=== PATIENT | female | born 1995 | race Hispanic/Latino ===

== ENCOUNTER 2020-02-02 06:36 | Emergency (ER) | payer SELFPAY ==
--- NOTE | ~2020-02-02 | XR_ITS ---
EXAMINATION: XR chest 2V DATE: 02/02/2020 07:34 INDICATION: Chest pain TECHNIQUE: Frontal and lateral views of the chest are obtained COMPARISON: None available FINDINGS: The lungs are free of acute opacities. There is no pleural effusion or pneumothorax. The ca rdiomediastinal silhouette is normal. The visualized bones and soft tissues are unremarkable. IMPRESSION: 1. No acute cardiopulmonary abnormality. Reviewed, dictated and finalized at location A.
[2020-02-02 06:42] VITALS: BP 116/70; PULSE 56; RESP 19; TEMP 36.8; O2SAT 100
[2020-02-02 06:51] VITALS: PULSE 56; O2SAT 100
--- NOTE | 2020-02-02 06:56 | ECG_ITS ---
Measurements Intervals [place] Rate: 58 P: 39 AK: 156 QRS: 61 QRSD: 86 T: 14 QT: 404 QTc: 399 Interpretive Statements SINUS BRADYCARDIA WITH MARKED SINUS ARRHYTHMIA INFERIOR INFARCT, AGE INDETERMINATE BORDERLINE T WAVE ABNORMALITY- ANTERIOR LEADS BASELINE WANDER- I, II ABNORMAL ECG Electronically Signed On 02-02-2020 9:14:17 CDT by Mono Freitas D.O.
--- NOTE | 2020-02-02 06:57 | ED.CHESTPAIN ---
HPI - Chest Pain General Chief Complaint: Chest Pain Stated Complaint: pressure on my heart Time Seen by Provider: 02/02/20 06:47 Source: patient Mode of arrival: ambulatory Limitations: no limitations History of Present Illness HPI narrative: Patient is a 24-year-old female who presents to the emergency department with complaint of chest pain. Patient reports onset of symptoms 4 days ago. Patient states pain has been brief and intermittent lasting a few seconds at a time occurring several times a day for the past 4 days. Patient denies any other associated symptoms or any recent illness. Patient has no cardiac risk factors. complaint: chest pain Onset (ago): day(s) (4) Timing of current episode: daily Pain location: left chest Quality: other (presure) Relieving factors: nothing Exacerbating factors: nothing Treatment prior to arrival: none Risk Factors Coronary artery disease risk factors: none Related Data Home Medications Medication Instructions Recorded Confirmed No Home Medications 02/02/20 Allergies Allergy/AdvReac Type Severity Reaction Status Date / Time No Known Allergies Allergy Verified 02/02/20 06:53 Review of Systems Review of Systems: All systems reviewed & are unremarkable except as noted in HPI and below Constitutional: Constitutional: Denies fever(s) Cardiovascular: Cardiovascular: Reports chest pain Respiratory: Respiratory: Denies cough and Denies dyspnea Gastrointestinal: Gastrointestinal: Denies abdominal pain, Denies nausea and Denies vomiting PMFSH Past Medical History Medical History (Updated 02/02/20 @ 08:51 by Carley Silva MD) No significant past medical history Surgical History Surgical History (Updated 02/02/20 @ 06:59 by Carley Silva MD) History of section Social History Social History (Updated 02/02/20 @ 06:59 by Carley Silva MD) Smoking status: Never smoker Exam Const: General: cooperative, no acute distress and alert Nutritional Appearance: overweight Orientation/consciousness: patient oriented x3 Limitations: no limitations HENMT: Mouth: Yes lip normal and Yes moist mucous membranes Resp: Effort & Inspection: normal respiratory effort Auscultation: clear to auscultation bilaterally Cardio: Rate: regular rate Rhythm: regular rhythm GI: GI Palp: Yes Soft to palpation and No Tenderness to palpation present (GI) Auscultation: normal bowel sounds Skin: General skin exam: normal color Neuro: General: patient oriented x3 Cognition (Neuro): normal cognition Speech: normal speech Extrem: General: normal to inspection, full ROM and no clubbing, cyanosis or edema Psych: Mental Status: mental status grossly normal Affect: normal affect Attitude: cooperative Course Course Emergency Course: Testing in the emergency department unremarkable. Patient with no risk for cardiac disease and normal test. Patient advised to follow-up with primary care for further evaluation if needed. Vital Signs Vital signs: Vital Signs Temperature 98.2 F 02/02/20 06:42 Pulse Rate 56 L 02/02/20 06:42 Respiratory Rate 19 02/02/20 06:42 Blood Pressure 116/70 02/02/20 06:42 Pulse Oximetry 100 02/02/20 06:42 Temperature 98.2 F 02/02/20 06:42 Pulse Rate 56 L 02/02/20 08:16 Respiratory Rate 16 02/02/20 08:16 Blood Pressure 104/63 02/02/20 08:16 Pulse Oximetry 98 02/02/20 08:16 MDM - Chest Pain Lab Data Attestation: I reviewed the patient's lab results. Result diagrams: 02/02/20 06:58 02/02/20 06:58 Labs: Lab Results 02/02/20 02/02/20 Range/Units 06:58 06:58 WBC 6.1 (4.5-10.0) K/mm3 RBC 4.78 (4.2-5.4) M/mm3 Hgb 13.2 (12.0-15.0) g/dL Hct 41.2 (37.0-47.0) % MCV 86.2 (80-100) fl MCH 27.6 (26-34) pg MCHC 32.0 (32-36) g/dl RDW 13.4 (11.5-14.5) % Plt Count 185 (150-375) k/mm3 MPV 13.1 H (7.4-10.4) fl Immature Gran % (
[2020-02-02 07:22] LABS: Basophils Percent Auto 0.2 % (0.2-1.2); Eosinophils Absolute Auto 0.2 K/mm3 (0-0.3); Hematocrit 41.2 % (37.0-47.0); Hemoglobin 13.2 g/dL (12.0-15.0); Immature Granulocyte Absolute 0.01 K/mm3 (0.00-0.031); Immature Granulocyte Percent A 0.2 % (0-0.5); Immature Platelet Fraction Pct 15.3 % (0.9-11.2); Lymphocytes Absolute Auto 2.33 K/mm3 (0.9-3.2); Lymphocytes Percent Auto 38.4 % (18.3-44.2); Mean Corpuscular Hemoglobin 27.6 pg (26-34); Mean Corpuscular Volume 86.2 fl (80-100); Mean Platelet Volume 13.1 fl (7.4-10.4); Monocytes Absolute Auto 0.3 K/mm3 (0.1-0.6); Monocytes Percent Auto 5.1 % (2.6-8.5); Neutrophils Absolute Auto 3.2 K/mm3 (1.3-6.7); Neutrophils Percent Auto 52.1 % (45.5-73.1); Platelet Count Result 185 k/mm3 (150-375); Red Blood Count 4.78 M/mm3 (4.2-5.4); Red Cell Distribution Width 13.4 % (11.5-14.5); White Blood Count 6.1 K/mm3 (4.5-10.0)
[2020-02-02 07:32] LABS: Alanine Aminotransferase 15 U/L (4-35); Albumin Level 4.7 g/dL (3.5-5.1); Alkaline Phosphatase 59 U/L (38-126); Aspartate Amino Transferase 26 U/L (14-36); Bilirubin,Total 0.5 mg/dL (0.2-1.3); Blood Urea Nitrogen 11 mg/dL (7-17); Calcium 9.3 mg/dL (8.4-10.2); Carbon Dioxide 27 mmol/L (22-30); Chloride 104 mmol/L (98-107); Estimated CRCL calculation 116 ml/min; Estimated Glomerular Filt Rate > 60; Glucose 92 mg/dL (65-105); Potassium 3.6 mmol/L (3.4-5.0); Sodium 137 mmol/L (137-145)
[2020-02-02 07:43] LABS: Troponin I < 0.012 ng/mL (0.000-0.034)
[2020-02-02 08:16] VITALS: BP 104/63; PULSE 56; RESP 16; O2SAT 98
[2020-02-02 08:58] VITALS: BP 101/65; PULSE 61; RESP 18; O2SAT 98
== END 2020-02-02 09:00 | disposition home or self-care (01) ==
PROVIDERS: Emergency Provider Emergency Medicine
DX: R07.89 Other chest pain (principal); R00.1 Bradycardia, unspecified; R94.31 Abnormal electrocardiogram [ECG] [EKG]
CPT/HCPCS: 36415; 71046; 80053; 84484; 85025; 85055; 93005; 99284

== ENCOUNTER 2021-01-01 08:43 | Emergency (ER) | payer SELFPAY ==
[2021-01-01 08:53] VITALS: BP 119/61; PULSE 50; RESP 16; TEMP 36.2; O2SAT 100
--- NOTE | 2021-01-01 09:52 | ED.SKABFB ---
HPI - Skin/Abscess/Foreign Bdy General Chief complaint: Skin/Abscess/Foreign Body <Inocencia Younger PA-C - Last Filed: 01/01/21 10:00> Stated complaint: lump on arm and neck <Inocencia Younger PA-C - Last Filed: 01/01/21 10:00> Time Seen by Provider: 01/01/21 09:06 <Inocencia Younger PA-C - Last Filed: 01/01/21 10:00> Source: patient <Inocencia Younger PA-C - Last Filed: 01/01/21 10:00> Mode of arrival: ambulatory <Inocencia Younger PA-C - Last Filed: 01/01/21 10:00> Limitations: no limitations <Inocencia Younger PA-C - Last Filed: 01/01/21 10:00> History of Present Illness HPI narrative: This is a 25 year old female that presents to the ER for cysts noted on her arm and neck. Reports she first noted the one on her left upper arm about a year ago. Reports she noted one on her neck about a month ago. Reports they are now becoming tender with palpation to the areas. Denies fever, or erythema. <Inocencia Younger PA-C - Last Filed: 01/01/21 10:00> Related Data Allergies/Adverse reactions: Allergies Allergy/AdvReac Type Severity Reaction Status Date / Time No Known Allergies Allergy Verified 01/01/21 08:56 <Inocencia Younger PA-C - Last Filed: 01/01/21 10:00> Review of Systems Review of Systems: Narrative: CONSTITUTIONAL: Denies fever SKIN: Denies rash <Inocencia Younger PA-C - Last Filed: 01/01/21 10:00> All systems reviewed & are unremarkable except as noted in HPI and below <Inocencia Younger PA-C - Last Filed: 01/01/21 10:00> PMFSH Past Medical History Medical History: Medical History (Updated 01/01/21 @ 09:57 by Inocencia Younger PA-C) No significant past medical history <Inocencia Younger PA-C - Last Filed: 01/01/21 10:00> Surgical History Surgical History: Surgical History (Updated 02/02/20 @ 06:59 by Carley Silva MD) History of section <Inocencia Younger PA-C - Last Filed: 01/01/21 10:00> Social History Social History: Social History (Updated 02/02/20 @ 06:59 by Carley Silva MD) Smoking status: Never smoker <Inocencia Younger PA-C - Last Filed: 01/01/21 10:00> Exam Narrative: Exam Narrative: GENERAL: Well-appearing, obese, and in no acute distress. HEAD: Normocephalic, atraumatic. EYES: EOMI. ENT: Nares clear, no rhinorrhea or epistaxis. Mucous membranes moist. Oropharynx without tonsillar hypertrophy exudate or other lesions. Bilateral TMs pearly nance non-bulging NECK: Supple. Small (1.5cm), mobile cyst versus lymph node in the right posterior cervical region. No erythema or warmth CHEST: Clear to auscultation. No respiratory distress. No wheezes rales or rhonchi HEART: Regular rate and rhythm. No murmur heard. Normal peripheral pulses. EXTREMITIES: Normal range of motion. No edema. Small (1.5cm), nonmobile subcutaneous cyst of the left upper arm, no surrounding erythema or warmth SKIN: Warm, dry, no rash. NEURO: No focal deficits. Alert and oriented x3. PSYCH: Normal mood and affect <SHAD Flores Last Filed: 01/01/21 10:00> Course Vital Signs Vital signs: Vital Signs Temperature 97.1 F L 01/01/21 08:53 Pulse Rate 50 L 01/01/21 08:53 Respiratory Rate 16 01/01/21 08:53 Blood Pressure 119/61 01/01/21 08:53 Pulse Oximetry 100 01/01/21 08:53 Temperature 97.1 F L 01/01/21 08:53 Pulse Rate 50 L 01/01/21 08:53 Respiratory Rate 16 01/01/21 08:53 Blood Pressure 119/61 01/01/21 08:53 Pulse Oximetry 100 01/01/21 08:53 <Inocencia Younger PA-C - Last Filed: 01/01/21 10:00> Vital Signs Temperature 97.1 F L 01/01/21 08:53 Pulse Rate 50 L 01/01/21 08:53 Respiratory Rate 16 01/01/21 08:53 Blood Pressure 119/61 01/01/21 08:53 Pulse Oximetry 100 01/01/21 08:53 Temperature 97.1 F L 01/01/21 08:53 Pulse Rate 50 L 01/01/21 08:53 Respiratory Rate 16 01/01/21 08:53 Blood Pressure 119/61 01/01/21 08:53 Pulse Oximetry 100 01/01/21 08:53
== END 2021-01-01 11:10 | disposition home or self-care (01) ==
PROVIDERS: Emergency Provider General Practice
DX: L72.3 Sebaceous cyst (principal)
CPT/HCPCS: 99283

== ENCOUNTER 2021-08-31 07:59 | Emergency (ER) | payer SELFPAY ==
[2021-08-31 08:16] VITALS: BP 120/55; PULSE 58; RESP 20; TEMP 36.6; O2SAT 100
[2021-08-31 09:30] VITALS: BP 121/60; PULSE 59; RESP 19; O2SAT 100
[2021-08-31 09:33] LABS: Basophils Percent Auto 0.2 % (0.2-1.2); Eosinophils Absolute Auto 0.1 K/mm3 (0-0.3); Eosinophils Percent Auto 2.2 % (0-4.4); Hematocrit 33.2 % (37.0-47.0); Hemoglobin 10.9 g/dL (12.0-15.0); Immature Granulocyte Absolute 0.01 K/mm3 (0.00-0.031); Immature Granulocyte Percent A 0.2 % (0-0.5); Lymphocytes Absolute Auto 1.76 K/mm3 (0.9-3.2); Lymphocytes Percent Auto 29.7 % (18.3-44.2); Mean Corpuscular HGB Conc 32.8 g/dl (32-36); Mean Corpuscular Volume 85.3 fl (80-100); Mean Platelet Volume 12.7 fl (7.4-10.4); Monocytes Absolute Auto 0.4 K/mm3 (0.1-0.6); Monocytes Percent Auto 7.4 % (2.6-8.5); Neutrophils Absolute Auto 3.6 K/mm3 (1.3-6.7); Neutrophils Percent Auto 60.3 % (45.5-73.1); Platelet Count Result 158 k/mm3 (150-375); Red Blood Count 3.89 M/mm3 (4.2-5.4); Red Cell Distribution Width 13.2 % (11.5-14.5); White Blood Count 5.9 K/mm3 (4.5-10.0)
[2021-08-31 10:10] LABS: Anion Gap 7 mmol/L (8-16); Blood Urea Nitrogen 9 mg/dL (7-17); Carbon Dioxide 24 mmol/L (22-30); Chloride 106 mmol/L (98-107); Estimated CRCL calculation 116 ml/min; Estimated Glomerular Filt Rate > 60; Glucose 86 mg/dL (65-110); Potassium 4.2 mmol/L (3.4-5.0); Sodium 137 mmol/L (137-145)
--- NOTE | 2021-08-31 10:33 | ED.SKABFB ---
HPI - Skin/Abscess/Foreign Bdy General Chief complaint: Skin/Abscess/Foreign Body Stated complaint: neck pain, headache, skin abcess Time Seen by Provider: 08/31/21 08:50 Source: patient History of Present Illness HPI narrative: Patient presents with swelling on the right neck. Reports symptoms been there for approximately 1 month and she is having increasing pain. Reports never been evaluated for it before but wanted to come to the ER given worsening symptoms. She denies any fevers, cough, congestion. She denies any dental pain pain with swallowing changes in hearing or earaches. Denies any nausea or vomiting. She denies any major changes in weight. Related Data Allergies Allergy/AdvReac Type Severity Reaction Status Date / Time No Known Allergies Allergy Verified 08/31/21 08:22 Review of Systems Review of Systems: CONSTITUTIONAL: Denies fever, chills, or sweats. EYES: Denies visual changes, redness, or discharge. ENT: Denies rhinorrhea, congestion, sore throat, or otalgia. CARDIOVASCULAR: Denies chest pain, palpitations, or edema. RESPIRATORY: Denies cough or dyspnea. GASTROINTESTINAL: Denies abdominal pain, nausea, vomiting, or diarrhea. GENITOURINARY: Denies dysuria or hematuria. SKIN: Denies rash or itching. MUSCULOSKELETAL: Denies back pain, joint pain, or myalgia. NEUROLOGIC: Denies headache, numbness, dizziness, or weakness. PSYCHIATRIC: Denies anxiety or depression. All systems reviewed & are unremarkable except as noted in HPI and below PMFSH Past Medical History Medical History No significant past medical history Surgical History Surgical History History of section Social History Social History Smoking status: Never smoker Exam Narrative: GENERAL: Well-appearing, well-nourished, and in no acute distress. HEAD: Normocephalic, atraumatic. EYES: PERRLA and EOMI. ENT: Nares clear, no rhinorrhea or epistaxis. Mucous membranes moist. EACs clear bilaterally TMs clear bilaterally NECK: Supple. No masses. No JVD, 1 x 1 cm firm mobile nodule on the superior aspect of the posterior cervical lymph chain. Mild tenderness to palpation with overlying erythema EXTREMITIES: Normal range of motion. No edema. SKIN: Warm, dry, no rash. NEURO: No focal deficits. Alert and oriented x3. PSYCH: Normal mood and affect. Course Reevaluation(s) Reevaluation #1: Patient resting comfortably labs reassuring. Will attempt trial of outpatient antibiotics have patient follow-up for reevaluation with PCM. Patient comfortable outpatient plan. Date: 08/31/21 Time: 10:36 Vital Signs Vital signs: Vital Signs Temperature 36.6 C 08/31/21 08:16 Pulse Rate 58 L 08/31/21 08:16 Respiratory Rate 20 08/31/21 08:16 Blood Pressure 120/55 L 08/31/21 08:16 Pulse Oximetry 100 08/31/21 08:16 Temperature 36.6 C 08/31/21 08:16 Pulse Rate 59 L 08/31/21 09:30 Respiratory Rate 19 08/31/21 09:30 Blood Pressure 121/60 08/31/21 09:30 Pulse Oximetry 100 08/31/21 09:30 MDM - Skin/Abscess/Foreign Bdy MDM Narrative Medical decision making narrative: H&P as above, vss, pt looks clinically well, exam with firm mobile nodule in the posterior cervical lymph chain, labs reassuring, img bedside ultrasound shows lymph node, additional labs/img considered, symptomatic relief available as needed, on reevaluation pt continues to looks clinically well. Suspect lymphadenopathy or given the duration symptoms may not be reactive, however given the overlying erythema plan to attempt a trial of antibiotics and have patient follow-up with primary care physician. If antibiotics ineffective patient may benefit from biopsy. There is low concern for abscess, severe sepsis, airway compromise Lab Data Result diagrams: 08/31/21 09:10 08/31/21 09:10
== END 2021-08-31 10:51 | disposition home or self-care (01) ==
PROVIDERS: Emergency Provider Emergency Medicine
DX: L03.221 Cellulitis of neck (principal); R59.1 Generalized enlarged lymph nodes
CPT/HCPCS: 36415; 80048; 85025; 99283

== ENCOUNTER 2023-03-20 12:00 | Emergency (ER) | payer SELFPAY ==
[2023-03-20 12:02] VITALS: BP 109/83; PULSE 80; RESP 19; TEMP 36.6; O2SAT 100
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
[2023-03-20] MEDS: BACITRACIN OINTMENT 15 GM TUBE 1 APPLIC TOPICAL (13:50)
== END 2023-03-20 13:48 | disposition home or self-care (01) ==
PROVIDERS: Emergency Provider Physician Assistant; PCP Physician Assistant
DX: T20.03XA Burn of unspecified degree of chin, initial encounter (principal); T31.0 Burns involving less than 10% of body surface; X10.2XXA Contact with fats and cooking oils, initial encounter; Y93.G3 Activity, cooking and baking
CPT/HCPCS: 99283; A9270

== ENCOUNTER 2024-01-01 09:15 | Emergency (ER) | payer SELFPAY ==
--- NOTE | ~2024-01-01 | XR_ITS ---
EXAMINATION: XR chest 2V DATE: 01/01/2024 11:19 INDICATION: Cough. TECHNIQUE: Frontal and lateral views of the chest were obtained. COMPARISON: Chest 2 views 02/02/2020 FINDINGS: There is no pneumonia, pleural effusion, or pneumothorax. The heart size is normal. IMPRESSION: 1. No acute cardiopulmonary disease. Reviewed, dictated and finalized at location A. E INTERCEPT TECHNICIAN
[2024-01-01 09:29] VITALS: BP 127/72; PULSE 100; RESP 16; TEMP 38; O2SAT 100
[2024-01-01 10:15] LABS: Strep Group A RT-PCR NOT DETECTED (Negative)
[2024-01-01 10:27] LABS: Influenza A QL RT-PCR Negative (Negative); Influenza B QL RT-PCR Negative (Negative); RSV RNA, RT-PCR Negative (Negative); SARS-CoV-2 RNA PCR Negative (Negative)
[2024-01-01 11:02] VITALS: O2SAT 99
--- NOTE | 2024-01-01 11:49 | ED.URI ---
HPI - URI/Sore Throat General Chief Complaint: Upper Respiratory Infection Stated Complaint: ROSA,CHILLS,BODY ACHES,ST Time Seen by Provider: 01/01/24 10:50 History of Present Illness HPI Narrative: 28-year-old female presents to the emergency department for URI symptoms x3 days. Patient states the 1st day symptoms she developed nasal congestion and a runny nose which has since resolved. She is not reporting body aches, headache, chills and mild cough. She is reporting urinary frequency and urgency but denies dysuria. Denies sore throat, chest pain or shortness of breath, abdominal pain, nausea vomiting, diarrhea. She also states that her right ear canal has been itchy for the past few weeks. She was told by her PCP that she may have a fungal infection was given 2 pills which she took as prescribed. States this has not helped and her ear continues to feel itchy. denies known fever. Related Data Allergies Allergy/AdvReac Type Severity Reaction Status Date / Time No Known Allergies Allergy Verified 09/20/21 14:55 Review of Systems Review of Systems: CONSTITUTIONAL: see HPI EYES: Denies visual changes, redness, or discharge. ENT: See HPI CARDIOVASCULAR: Denies chest pain, palpitations, or edema. RESPIRATORY: see HPI GASTROINTESTINAL: Denies abdominal pain, nausea, vomiting, or diarrhea. GENITOURINARY: See HPI SKIN: Denies rash or itching. MUSCULOSKELETAL: Denies back pain, joint pain, or myalgia. NEUROLOGIC: Denies headache, numbness, or weakness. PSYCHIATRIC: Denies anxiety or depression. PMFSH Past Medical History Medical History No significant past medical history Surgical History Surgical History History of section Family History Family History Father Diabetes mellitus Mother Hypertension Social History Social History Smoking status: Never smoker Alcohol intake: never Substance use: never Substance use type: does not use Exam Narrative: GENERAL: Well-appearing, well-nourished, and in no acute distress. HEAD: Normocephalic, atraumatic. EYES: PERRLA and EOMI. ENT: Nares clear, no rhinorrhea or epistaxis. Mucous membranes moist. posterior pharynx without erythema, edema, tonsillar hypertrophy or exudates. Uvula is midline. Bilateral TMs are nance nonbulging. Left canal is unremarkable. Right canal with mild erythema, no drainage. Scant amount of wax, however TM is fully visualized. No pain with movement of pinna, no mastoid tenderness. NECK: Supple. CHEST: Clear to auscultation. No respiratory distress. HEART: Regular rate and rhythm. No murmur heard. Normal peripheral pulses. ABDOMEN: Soft, nontender, nondistended, normal active bowel sounds. EXTREMITIES: Normal range of motion. No edema. SKIN: Warm, dry, no rash. NEURO: No focal deficits. Alert and oriented x3 Course Vital Signs Vital signs: Vital Signs Temperature 100.4 F H 01/01/24 09:29 Pulse Rate 100 01/01/24 09:29 Respiratory Rate 16 01/01/24 09:29 Blood Pressure 127/72 01/01/24 09:29 Pulse Oximetry 100 01/01/24 09:29 Oxygen Delivery Room Air 01/01/24 09:29 Temperature 99.8 F H 01/01/24 13:28 Pulse Rate 68 01/01/24 13:28 Respiratory Rate 15 01/01/24 13:28 Blood Pressure 112/76 01/01/24 13:28 Pulse Oximetry 100 01/01/24 13:28 Oxygen Delivery Room Air 01/01/24 11:02 MDM - URI/Sore Throat MDM Narrative Medical decision making narrative: 28-year-old female presents to emergency department for URI symptoms x3 days and itchiness to her right ear for the past few weeks. See HPI for further history. Triage vital significant for fever 100.4, otherwise unremarkable. Exam significant for the above. COVID, flu and RSV are negative.
[2024-01-01] MEDS: ACETAMINOPHEN 500 MG TABLET 1000 MG PO (11:56)
--- NOTE | 2024-01-01 11:57 | PC.NURSE ---
pt unable to urinate at this time. educated pt to use call light with any urge to urinate
[2024-01-01 12:01] VITALS: BP 123/76; PULSE 67; RESP 17; O2SAT 100
[2024-01-01 12:26] LABS: Appearance Urine Cloudy (Clear); Bacteria Urine 1+ /hpf; Bilirubin Urine Negative (Negative); Blood Urine 2+ (Negative); Color Urine Yellow (Yellow); Glucose Urine UA Negative (Negative); Ketones Urine Negative (Negative); Leukocyte Esterase Ur 3+ LEU/UL (Negative); Nitrate Urine Negative (Negative); Non Pathogenic Casts 0-2; Protein Urine 1+ mg/dL (Negative); Specific Grav Ur 1.013 (1.001-1.035); Squamous Epithelial Cell Urine None seen /hpf (Few); Urobilinogen Urine 0.2 mg/dL (<2.0); WBC Urine >100 /hpf; pH Urine 5.5 (5.0-9.0)
[2024-01-01 12:27] LABS: Add Urine Microscopic? YES
[2024-01-01] MEDS: CEFDINIR 300 MG CAPSULE PO (13:22)
[2024-01-01 13:28] VITALS: BP 112/76; PULSE 68; RESP 15; TEMP 37.7; O2SAT 100
== END 2024-01-01 13:27 | disposition home or self-care (01) ==
PROVIDERS: Preventive Medicine Aerospace Medicine; Emergency Provider Physician Assistant; PCP Physician Assistant
DX: N30.01 Acute cystitis with hematuria (principal); J06.9 Acute upper respiratory infection, unspecified; H60.501 Unspecified acute noninfective otitis externa, right ear; Z20.822 Contact with and (suspected) exposure to COVID-19
CPT/HCPCS: 71046; 81001; 81025; 87077; 87086; 87088; 87186; 87637; 87651; 99283; A9270

== ENCOUNTER 2024-03-12 09:00 | Emergency (ER) | payer SELFPAY ==
--- NOTE | ~2024-03-12 | XR_ITS ---
EXAMINATION: XR chest 2V DATE: 03/12/2024 09:51 INDICATION: Chest pain. Cough. Congestion. TECHNIQUE: Frontal and lateral views of the chest were obtained. COMPARISON: Chest 2 views 01/01/2024 FINDINGS: There is no pneumonia, pleural effusion, or pneumothorax. The heart size is normal. IMPRESSION: 1. No acute cardiopulmonary disease. Reviewed, dictated and finalized at location A.
[2024-03-12 09:04] VITALS: BP 119/63; PULSE 66; RESP 19; TEMP 36.4; O2SAT 99
[2024-03-12 09:09] VITALS: O2SAT 99
--- NOTE | 2024-03-12 09:09 | ECG_ITS ---
SEE SCANNED COPY FOR CONFIRMED REPORT MTDD
[2024-03-12] MEDS: ACETAMINOPHEN 500 MG TABLET 1000 MG PO (09:57)
--- NOTE | 2024-03-12 10:12 | ED.URI ---
HPI - URI/Sore Throat General Chief Complaint: Upper Respiratory Infection Stated Complaint: Chest pain with cough Time Seen by Provider: 03/12/24 09:02 History of Present Illness HPI Narrative: This is a 29-year-old female, with no significant past medical history, presents to the emergency department complaining of cough with sharp past chest pain for the past week. The patient states she has been exposed to children who have had a viral illness. Her cough is productive of a green sputum without blood and associated with sharp, 4/10, diffuse chest pain. She denies other chest pain. She denies nausea or vomiting though complains of some generalized malaise. She has no other complaints at this time. Related Data Allergies Allergy/AdvReac Type Severity Reaction Status Date / Time No Known Allergies Allergy Verified 03/12/24 09:11 Review of Systems Review of Systems: CONSTITUTIONAL: Denies fever, chills, or sweats. EYES: Denies visual changes, redness, or discharge. ENT: Rhinorrhea, congestion, sore throat Denies otalgia. CARDIOVASCULAR: Denies chest pain, palpitations, or edema. RESPIRATORY: Cough productive of green sputum without blood. Denies dyspnea. GASTROINTESTINAL: Denies abdominal pain, nausea, vomiting, or diarrhea. GENITOURINARY: LMP 1 week ago. Denies dysuria or hematuria. SKIN: Denies rash or itching. MUSCULOSKELETAL: Myalgias Denies back pain, joint pain NEUROLOGIC: Generalized weakness Denies headache, numbness, dizziness,. PSYCHIATRIC: Denies anxiety or depression. PMFSH Past Medical History Medical History No significant past medical history Surgical History Surgical History History of section Family History Family History Father Diabetes mellitus Mother Hypertension Social History Social History Smoking status: Never smoker Alcohol intake: never Substance use: never Substance use type: does not use Exam Narrative: GENERAL: Well-developed, well-nourished, and in no acute distress. HEAD: Normocephalic, atraumatic. EYES: PERRLA and EOMI. ENT: Nares clear, no rhinorrhea or epistaxis. Mucous membranes moist. Oropharynx without tonsillar hypertrophy exudate or other lesions. CHEST: Clear to auscultation. No respiratory distress. No wheezes rales or rhonchi HEART: Regular rate and rhythm. No murmur heard. Normal peripheral pulses. ABDOMEN: Soft, nontender, nondistended, normal active bowel sounds. EXTREMITIES: Normal range of motion. No edema. SKIN: Warm, dry, no rash. NEURO: Alert and oriented x3. No focal deficit. Moving all 4 limbs spontaneously PSYCH: Normal mood and affect. Course Course Emergency Course: 11:10 - Chest x-ray not concerning for pneumonia or other acute cardiothoracic process. The patient tested negative for influenza and COVID. I suspect a viral upper respiratory infection as a cause of her symptoms. Will discharge with symptomatic management and recommendation for primary care follow-up. I discussed the findings and recommendations with the patient. Discussed return and emergency precautions including signs/symptoms of ACS and respiratory distress. The patient voiced understanding and agreement with the plan. All questions answered to her satisfaction. Vital Signs Vital signs: Vital Signs Temperature 97.6 F 03/12/24 09:04 Pulse Rate 66 03/12/24 09:04 Respiratory Rate 19 03/12/24 09:04 Blood Pressure 119/63 03/12/24 09:04 Pulse Oximetry 99 03/12/24 09:04 Oxygen Delivery Room Air 03/12/24 09:04 Temperature 97.6 F 03/12/24 09:04 Pulse Rate 67 03/12/24 10:32 Respiratory Rate 16 03/12/24 10:32 Blood Pressure 114/73 03/12/24 10:32 Pulse Oximetry 99 03/12/24 10:32 Oxygen Delivery Room
[2024-03-12 10:32] VITALS: BP 114/73; PULSE 67; RESP 16; O2SAT 99
[2024-03-12 10:42] LABS: Influenza A QL RT-PCR Negative (Negative); Influenza B QL RT-PCR Negative (Negative); SARS-CoV-2 RNA PCR Negative (Negative)
[2024-03-12 11:30] VITALS: BP 107/67; PULSE 77; RESP 19; TEMP 36.6; O2SAT 99
== END 2024-03-12 11:34 | disposition home or self-care (01) ==
PROVIDERS: Emergency Provider Preventive Medicine Aerospace Medicine; PCP Physician Assistant
DX: M94.0 Chondrocostal junction syndrome [Tietze] (principal); I45.10 Unspecified right bundle-branch block
CPT/HCPCS: 71046; 87636; 93005; 99283; A9270

== ENCOUNTER 2025-03-31 16:59 | Emergency (ER) | payer SELFPAY ==
[2025-03-31 17:03] VITALS: BP 114/86; PULSE 130; RESP 20; TEMP 37.2; O2SAT 98
--- OUTSIDE RECORDS SUMMARY | 2025-03-31 17:03 | XMS_ITS | Continuity of Care Document ---
Author Organization [facility] Address [address] [place] [address] Phone Care Team Providers Care Order Administrator Name Role Phone Zoey DMD, Nitin Unavailable Unavailable Allergies, Adverse Reactions, Alerts Substance Reaction Status Criticality No Known Allergies Active No Inform ation Medications Medication Instructions Dosage Effective Dates (start - stop) Status Comments Nexplanon [address] 1 by Intradermal route 1 - Active annita Ramos rm Procedures Procedure Date Extraction erupted tooth or exposed root Periapical Radiographic, first Image Nov Dental Bitewing Radiographic, One Image Limit Oral Evaluation- problem focused J OFFICE/OUTPATIENT VISIT, EST Alcohol and/or drug screening 9 URINE TEST, BY VISUAL COLOR CO MPARISON METHODS OFFICE/OUTPATIENT VISIT, EST Alcohol and/or drug screening 9 [facility] 15 MIN [facility] [place] [facility] 15 MIN DELIVERY ONLY INSERTION, NON-BIODEGRADABLE DRUG DELIVE RY IMPLANT NEXPLANON/IMPLANON (ETONOGESTREL (CONTRA CEPTIVE) IMPLANT SYSTEM,) OFFICE/OUTPATIENT VISIT, EST Alcohol and/or drug screening 9 OB US, Follow-up, per Fetus, Transabdomi nal OFFICE/OUTPATIENT VISIT, EST Alcohol and/or drug screening 9 Urinalysis, Auto, w/o Scope OFFICE/OUTPATIENT VISIT, EST Alcohol and/or drug screening 9 Urinalysis, Auto, w/o Scope OFFICE/OUTPATIENT VISIT, EST Alcohol and/or drug screening 9 Urinalysis, Auto, w/o Scope OFFICE OUTPT EST 25 MIN Alcohol and/or drug screening 9 TDAP VACCINE 7 YR + IM Urinalysis, Auto, w/o Scope OFFICE OUTPT EST 25 MIN Alcohol and/or drug screening 9 Urinalysis, Auto, w/o Scope OFFICE OUTPT EST 25 MIN Alcohol and/or drug screening 9 Urinalysis, Auto, w/o Scope OFFICE OUTPT EST 25 MIN Urinalysis, Auto, w/o Scope OFFICE OUTPT EST 25 MIN Alcohol and/or drug screening 8 Urinalysis, Auto, w/o Scope OFFICE OUTPT EST 25 MIN Alcohol and/or drug screening 8 Urinalysis, Auto, w/o Scope OFFICE OUTPT EST 25 MIN Urinalysis, Auto, w/o Scope Alcohol and/or drug screening 8 OFFICE OUTPT EST 40 MIN Alcohol and/or drug screening 8 Immun admin-adult or WO counseling - fir st vaccine/toxoid INFLUENZA VACCINE, AGE 4-18 YRS 018 Urinalysis, Auto, w/o Scope OB US < 14 Weeks, Single Fetus 18 OB US < 14 Weeks, Additional Fetus OB US, Transvaginal MENTAL HEALTH ASSESSMENT, BY NON-PHYSICI AN care, at-risk assessment care, at-risk enhanced service; antepartum management NURSING ASSESSMENT / EVALUATION URINE TEST, BY VISUAL COLOR CO MPARISON METHODS OFFICE OUTPT EST 25 MIN URINE TEST, BY VISUAL COLOR CO MPARISON METHODS OFFICE/OUTPATIENT VISIT, EST OFFICE/OUTPATIENT VISIT, EST COLLECTION OF VENOUS BLOOD BY VENIPUNCTHorace GRECO care, at-risk enhanced service; antepartum management MENTAL HEALTH ASSESSMENT, BY KEISHA DORAN Voided Encounter HOSPITAL DISCHARGE DAY MANAGEMENT; 30 FL NUTES OR LESS OFFICE/OUTPATIENT VISIT, EST OFFICE/OUTPATIENT VISIT, EST OFFICE/OUTPATIENT VISIT, EST OFFICE/OUTPATIENT VISIT, EST COLLECTION OF VENOUS BLOOD BY VENCLAY RE OFFICE/OUTPATIENT VISIT, EST OFFICE/OUTPATIENT VISIT, EST OFFICE/OUTPATIENT VISIT, EST Voided Encounter OFFICE/OUTPATIENT VISIT, EST OFFICE/OUTPATIENT VISIT, EST OFFICE/OUTPATIENT VISIT, EST COLLECTION OF VENOUS BLOOD BY VENCLAY GRECO Voided Encounter care, at-risk enhanced service; antepartum management MENTAL HEALTH ASSESSMENT, BY KEISHA DORAN CARE, AT-RISK ENHANCED SERVICE PACKAGE (INCLUDES [id number]) OFFICE/OUTPATIENT VISIT, EST SKIN TEST; TUBERCULOSIS, INTRADERMAL Dec OFFICE/OUTPATIENT VISIT, EST OB US >/= 14 Weeks, Single Fetus 2013 COLLECTION OF VENOUS BLOOD BY VENIPSHILPA GRECO OFFICE OUTPT EST 25 MIN care, at-risk assessment care, at-risk enhanced service; antepartum management MENTAL HEALTH ASSESSMENT, BY KEISHA DORAN Oral Assessment Voided Encounter URINE TEST, BY VISUAL COLOR CO MPARISON METHODS OFFICE/OUTPATIENT VISIT, EST OFFICE/OUTPATIENT VISIT, EST COLLECTION OF VENOUS BLOOD BY VENCLAY GRECO care, at-risk enhanced service; antepartum management MENTAL HEALTH ASSESSMENT, BY NON-PHYSICI AN HOSPITAL DISCHARGE DAY MANAGEMENT; 30 FL NUTES OR LESS [facility] [place] D 15 MIN VAGINAL DELIVERY ONLY (WITH OR WITHOUT E PISIOTOMY AND/OR FORCEPS); OFFICE/OUTPATIENT VISIT, EST OFFICE/OUTPATIENT VISIT, EST OFFICE/OUTPATIENT VISIT, EST COLLECTION OF VENOUS BLOOD BY DENNIS GRECO OFFICE/OUTPATIENT VISIT, EST OFFICE/OUTPATIENT VISIT, EST OFFICE/OUTPATIENT VISIT, EST OFFICE/OUTPATIENT VISIT, EST Voided Encounter OFFICE/OUTPATIENT VISIT, EST INFLUENZA VACCINE, AGE 3YRS+ OFFICE/OUTPATIENT VISIT, EST COLLECTION OF VENOUS BLOOD BY DENNIS GRECO OFFICE/OUTPATIENT VISIT, EST OFFICE/OUTPATIENT VISIT, EST COLLECTION OF VENOUS BLOOD BY DENNIS GRECO OFFICE/OUTPATIENT VISIT, EST MENTAL HEALTH ASSESSMENT, BY NON-PHYSICI AN care, at-risk assessment care, at-risk enhanced service; antepartum management Voided Encounter URINE TEST, BY VISUAL COLOR CO MPARISON METHODS URINE TEST, BY VISUAL COLOR CO MPARISON METHODS Voided Encounter REMOVAL, IMPLANTABLE CONTRACEPTIVE CAPSU LES OFFICE/OUTPATIENT VISIT, EST HUMAN PAPILLOMA VIRUS VACCINE QUADRIV 3 DOSE IM Dental bitewings two films Comprehensve oral evaluation Debridement, Full Mouth Oral hygiene instruction INSERTION, IMPLANTABLE CONTRACEPTIVE CAP SULES Injection, medroxyprogesterone acetate ( Depo-Provera), 150 mg OFFICE/OUTPATIENT VISIT, EST REMOVAL OF INTRAUTERINE DEVICE (IUD) Nov OFFICE/OUTPATIENT VISIT, EST OFFICE/OUTPATIENT VISIT, EST AZITHROMYCIN DIHYDRATE, ORAL, CAPSULES/P OWDER, 1 GRAM Levonorgestrel-releasing intrauterine co ntraceptive system, 52 mg INSERTION OF INTRAUTERINE DEVICE (IUD) N OFFICE OUTPT EST 25 MIN OFFICE OUTPT EST 10 MIN AZITHROMYCIN DIHYDRATE, ORAL, CAPSULES/P OWDER, 1 GRAM OFFICE OUTPT EST 10 MIN OFFICE OUTPT EST 10 MIN Injection, medroxyprogesterone acetate ( Depo-Provera), 150 mg VFC-HPV TYP 6 11 16 18 QUADRIV 3 DOSE SC HED IM OFFICE OUTPT EST 10 MIN N.GONORRHOEAE, DNA, AMP PROB CHYLMD TRACH, DNA, AMP PROBE OFFICE/OUTPATIENT VISIT, EST AZITHROMYCIN DIHYDRATE, ORAL, CAPSULES/P OWDER, 1 GRAM COLLECTION OF VENOUS BLOOD BY VENIPUNCTU RE PERIODIC COMPREHENSIVE PREVENTIVE MED RE E/M; ESTABLISHED PATIENT; 10-19 BLOOD COUNT; HEMATOCRIT (HCT) 200 8 N.GONORRHOEAE, DNA, AMP PROB CYTP C/V AUTO THIN LYR PREPJ SCR MNL RES CR PHYS Injection, medroxyprogesterone acetate ( Depo-Provera), 150 mg CHYLMD TRACH, DNA, AMP PROBE CM- Woman - Month with Face to F herminio Visit OFFICE CONSULT, 15 MIN, 3 KE Y COMPS: PROB FOCUS HX; PROB FOCUS EXAM; STRTFWD OFFICE CONSULT, 15 MIN, 3 KE Y COMPS: PROB FOCUS HX; PROB FOCUS EXAM; [facility] OFFICE OUTPT EST 10 MIN URNLS DIP STICK/TABLET RGNT AUTO W/O TONY OFFICE OUTPT EST 10 MIN URNLS DIP STICK/TABLET RGNT AUTO W/O TONY CULTURE, BACTERIAL; QUANTITATIVE COLONY COUNT, URINE OFFICE CONSULT, 15 MIN, 3 KE Y COMPS: PROB FOCUS HX; PROB FOCUS EXAM; [facility] CULTURE, BACTERIAL; QUANTITATIVE COLONY COUNT, URINE OFFICE OUTPT EST 10 MIN URNLS DIP STICK/TABLET RGNT AUTO W/O TONY CM- Woman - Month with No Face t o Face Visit URNLS DIP STICK/TABLET RGNT AUTO W/O TONY CULTURE, PRESUMPTIVE, PATHOGENIC ORGANIS MS, SCREENING ONLY; CULTURE, BACTERIAL; QUANTITATIVE COLONY COUNT, URINE OFFICE OUTPT EST 10 MIN URNLS DIP STICK/TABLET RGNT AUTO W/O TONY N.GONORRHOEAE, DNA, AMP PROB VFC-INFLUENZA VIRUS VACCINE, SPLIT, 3 YR S+ DOSE, IM/JET INJECTION USE CULTURE, BACTERIAL; QUANTITATIVE COLONY COUNT, URINE CHYLMD PNEUM, DNA, DIR PROBE OFFICE OUTPT EST 10 MIN OFFICE CONSULT, 15 MIN, 3 KE Y COMPS: PROB FOCUS HX; PROB FOCUS EXAM; [facility] URNLS DIP STICK/TABLET RGNT AUTO W/O TONY OFFICE OUTPT EST 10 MIN CM- Woman - Month with No Face t o Face Visit OFFICE OUTPT EST 10 MIN URNLS DIP STICK/TABLET RGNT AUTO W/O TONY GLUCOSE; POST GLUCOSE DOSE (INCLUDES GLU COSE) N.GONORRHOEAE, DNA, AMP PROB CHYLMD TRACH, DNA, AMP PROBE CULTURE, BACTERIAL; QUANTITATIVE COLONY COUNT, URINE BLOOD COUNT; COMPLETE (CBC), AUTOMATED (HGB, HCT, RBC, WBC AND PLATELET COUNT) COLLECTION OF VENOUS BLOOD BY VENIPUNCTU RE OFFICE CONSULT, 15 MIN, 3 KE Y COMPS: PROB FOCUS HX; PROB FOCUS EXAM; [facility] CM- Woman - Month with Face to F herminio Visit OFFICE CONSULT, 15 MIN, 3 KE Y COMPS: PROB FOCUS HX; PROB FOCUS EXAM; [facility] URNLS DIP STICK/TABLET RGNT AUTO W/O TONY OFFICE OUTPT EST 10 MIN CM- Woman - Month with No Face t o Face Visit OFFICE OUTPT EST 10 MIN URNLS DIP STICK/TABLET RGNT AUTO W/O TONY OFFICE CONSULT, 15 MIN, 3 KE Y COMPS: PROB FOCUS HX; PROB FOCUS EXAM; [facility] SMEAR, WET MOUNT, SALINE/INK OFFICE OUTPT EST 25 MIN AZITHROMYCIN DIHYDRATE, ORAL, CAPSULES/P OWDER, 1 GRAM CYTP C/V AUTO THIN LYR PREPJ SCR MNL RES CR PHYS N.GONORRHOEAE, DNA, AMP PROB CHYLMD TRACH, DNA, AMP PROBE URNLS DIP STICK/TABLET RGNT AUTO W/O TONY OFFICE CONSULT, 15 MIN, 3 KE Y COMPS: PROB FOCUS HX; PROB FOCUS EXAM; [facility] CM- Woman - Month with Face to F herminio Visit CM- Woman - Month with No Face t o Face Visit CM- Woman - Month with No Face t o Face Visit SKIN TEST; TUBERCULOSIS, INTRADERMAL Feb ANTIBODY; HIV-1 AND HIV-2, SINGLE ASSAY URNLS DIP STICK/TABLET RGNT AUTO W/O TONY LEAD HEPATITIS C ANTIBODY; COLLECTION OF VENOUS BLOOD BY VENIPUNCTU RE CALCIFEDIOL (25-OH VITAMIN D-3) 008 HEMOGLOBIN ELECTROPHORESIS N.GONORRHOEAE, DNA, AMP PROB CULTURE, BACTERIAL; QUANTITATIVE COLONY COUNT, URINE OB PANEL CHYLMD TRACH, DNA, AMP PROBE OFFICE OUTPT EST 10 MIN OFFICE CONSULT, 15 MIN, 3 KE Y COMPS: PROB FOCUS HX; PROB FOCUS EXAM; STRTFWD care, at-risk enhanced service; antepartum management care, at-risk assessment URINE TEST, BY VISUAL COLOR CO MPARISON METHODS OFFICE OUTPT NEW 10 MIN Advance Directives Directive Yes / No Effective Date File Name No Information Encounters Encounter Description Practice Location Reason(s) For Visit Diagnoses Date Provider Providers Copied on Encounter [facility], [address], [place], [place], [address] , tel: [phone] [facility] caries on pit and fissure surface penetrat into pulpEncounte r for dental exam and cleaning w abnormal findings 0 Zoey Taveras. [address], [place], [place], [address]. tel:[phone] OFFICE/OUTPATI ENT VISIT, EST [facility], [address], [place], [place], [address] , tel: [phone] [facility] 6wk pp (chief complaint) Body mass index (BMI) 31.0-31.9, adultEncount er for routine follow-upCer vical high risk HPV DNA test positiveEnco unter for screening for other disorder 0-201 9 No Information OFFICE/OUTPATI ENT VISIT, EST [facility], [address], [place], [place], [address] , tel: [phone] [facility] 2wk pp (chief complaint) Body mass index (BMI) 30.0-30.9, adultEncount er for routine follow-upEnc ounter for checking, reinsertion or removal of implantable subdermal contraceptiv eAbnormal Pap smear of cervixEncoun ter for screening for other disorder No Information [facility] [place] [facility] 15 MIN [facility], [address], [place], [place], [address] , [place] tel: [phone] [facility] No Information Karina Monte. [address], [place], [place], [address], [place]. tel:[phone] Referring Provider: Mell Collins, [address], [place], [address]. tel:[phone] [facility] 15 MIN [facility], [address], [place], [place], [address] , [place] tel: [phone] [facility] No Information No Information [facility], [address], [place], [place], [address] , [place] tel: [phone] [facility] Underachieve ment in [facility] oent, unspecified [facility]. [address], [place], [place], [address], [place]. tel:[phone] [facility], [address], [place], [place], [address] , [place] tel: [phone] [facility] No Information Sonia Haywood. [address], [place], [place], [address], [place]. tel:[phone] OFFICE/OUTPATI ENT VISIT, EST [facility], [address], [place], [place], [address] , [place] tel: [phone] [facility] routine (chief complaint) Supervision of high risk , third tdasngphr57 weeks gestation of pregnancyEnc ounter for screening for other disorder No Information [facility], [address], [place], [place], [address] , [place] tel: [phone] [facility] No Information 9 Sonia Haywood. [address], [place], [place], [address], [place]. tel:[phone] Referring Provider: Chastity Scott, [address], [place], [address]. tel:[phone] OFFICE/OUTPATI ENT VISIT, EST [facility], [address], [place], [place], [address] , [place] tel: [phone] [facility] routine (chief complaint) Supervision of high risk , third pirsdcaai81 weeks gestation of pregnancyEnc ounter for screening for other disorderEnco unter for suprvsn of normal , unsp trimester 9 No Information OFFICE/OUTPATI ENT VISIT, EST [facility], [address], [place], [place], [address] , [place] tel: [phone] [facility] routine (chief complaint) Supervision of high risk , third ievqiezkm57 weeks gestation of pregnancyEnc ounter for screening for other disorderEnco unter for suprvsn of normal , unsp trimester 9 No Information OFFICE/OUTPATI ENT VISIT, EST [facility], [address], [place], [place], [address] , [place] tel: [phone] [facility] routine (chief complaint) Supervision of high risk , third weeks gestation of pregnancyEnc ounter for screening for other disorderEnco unter for suprvsn of normal , unsp trimester 9 No Information OFFICE OUTPT EST 25 MIN [facility], [address], [place], [place], [address] , [place] tel: [phone] [facility] routine (chief complaint) Supervision of high risk , third vdtnztfid61 weeks gestation of pregnancyEnc ounter for immunization Encounter for screening for other disorderEnco unter for suprvsn of normal , unsp trimester 9 No Information OFFICE OUTPT EST 25 MIN [facility], [address], [place], [place], [address] , [place] tel: [phone] [facility] routine (chief complaint) Supervision of high risk , 2nd hhhothcoj24 weeks gestation of pregnancyEnc ounter for screening for other disorderEnco unter for suprvsn of normal , unsp trimester 9 No Information OFFICE OUTPT EST 25 MIN [facility], [address], [place], [place], [address] , [place] tel: [phone] [facility] routine (chief complaint) Body mass index (BMI) 34.0-34.9, adultSupervi clover of high risk , 2nd zvdzyeeja83 weeks gestation of pregnancyEnc ounter for screening for diabetes mellitusEnco unter for screening for other wqvtiqme51 weeks gestation of 9 No Information OFFICE OUTPT EST 25 MIN [facility], [address], [place], [place], [address] , [place] tel: [phone] [facility] routine (chief complaint) Supervision of high risk , 2nd wmrtuycag93 weeks gestation of pregnancyEnc ounter for suprvsn of normal , first trimester 9 No Information OFFICE OUTPT EST 25 MIN [facility], [address], [place], [place], [address] , [place] tel: [phone] [facility] routine (chief complaint) Twin , dichorionic/ diamniotic, second gcfsbyake73 weeks gestation of pregnancyEnc ounter for screening for other rzzwziaf34 weeks gestation of 8 No Information OFFICE OUTPT EST 25 MIN [facility], [address], [place], [place], [address] , [place] tel: [phone] [facility] routine (chief complaint) Supervision of high risk , 2nd haaibyqoc16 weeks gestation of pregnancyEnc ounter for screening for other vhephsnf40 weeks gestation of 8 No Information OFFICE OUTPT EST 25 MIN [facility], [address], [place], [place], [address] , [place] tel: [phone] [facility] routine (chief complaint) Supervision of high risk , 1st gokpltsdu39 weeks gestation of pregnancyEnc ounter for screening for other disorderLess than 8 weeks gestation of 8 No Information OFFICE OUTPT EST 40 MIN [facility], [address], [place], [place], [address] , [place] tel: [phone] [facility] IOB (chief complaint) Supervision of high risk , 1st trimester8 weeks gestation of pregnancyEnc ounter for immunization Encounter for screening for malignant neoplasm of cervixEncoun ter for screening for other disorderEnco unter for test, result positive 8 No Information [facility], [address], [place], [place], [address] , [place] tel: [phone] [facility] No Information Sonia Haywood. [address], [place], [place], [address], [place]. tel:[phone] Referring Provider: Chastity Scott, [address], [place], [address]. tel:[phone] [facility], [address], [place], [place], [address] , [place] tel: [phone] [facility] routine (chief complaint) Encounter for suprvsn of normal , first trimesterLes s than 8 weeks gestation of 8 [facility]. [address], [place], [place], [address], [place]. tel:[phone] [facility], [address], [place], [place], [address] , [place] tel: [phone] [facility] Encounter for test, result positiveAmen orrhea, unspecified No Information Referring Provider: Registered Nurse, [address], [place], [address]. tel:[phone] OFFICE OUTPT EST 25 MIN [facility], [address], [place], [place], [address] , [place] tel: [phone] [facility] depo shot (chief complaint) Contraceptiv e surveillance , unspecified 5 No Information OFFICE/OUTPATI ENT VISIT, EST [facility], [address], [place], [place], [address] , [place] tel: [phone] [facility] depo shot (chief complaint) Surveillance of intrauterine contraceptiv e deviceObesit y 4 Arlene Pope. [address], [place], [place], [address], [place]. tel:[phone] Referring Provider: Niko Yepez, [address], [place], [address]. tel:[phone] OFFICE/OUTPATI ENT VISIT, EST [facility], [address], [place], [place], [address] , [place] tel: [phone] [facility] check up (chief complaint) ROUT POSTPART FOLLOW-UP 4 Arlene Pope. [address], [place], [place], [address], [place]. tel:[phone] Referring Provider: Niko Yepez, [address], [place], [address]. tel:[phone] [facility], [address], [place], [place], [address] , [place] tel: [phone] [facility] PP home visit (chief complaint) No Information [facility]. [address], [place], [place], [address], [place]. tel:[phone] [facility], [address], [place], [place], [address] , [place] tel: [phone] [facility] No Information [facility]. [address], [place], [place], [address], [place]. tel:[phone] HOSPITAL DISCHARGE DAY MANAGEMENT; 30 MINUTES OR LESS [facility], [address], [place], [place], [address] , [place] tel: [phone] [facility] No Information 4 Tepe Chastity. [address], [place], [place], [address], [place]. tel:[phone] OFFICE/OUTPATI ENT VISIT, EST [facility], [address], [place], [address] , [place] tel: [phone] [facility] routine (chief complaint) Supervision of other normal 4 Arlene Pope. [address], [place], [address], [place]. tel:[phone] Referring Provider: Niko Yepez, [address], [place], [address]. tel:[phone] OFFICE/OUTPATI ENT VISIT, EST [facility], [address], [place], [place], [address] , [place] tel: [phone] [facility] routine (chief complaint) Supervision of other normal 9 4 Arlene Pope. [address], [place], [place], [address], [place]. tel:[phone] Referring Provider: Niko Yepez, [address], [place], [address]. tel:[phone] OFFICE/OUTPATI ENT VISIT, EST [facility], [address], [place], [place], [address] , [place] tel: [phone] [facility] routine (chief complaint) Supervision of other normal 3 4 Arlene Pope. [address], [place], [place], [address], [place]. tel:[phone] Referring Provider: Niko Yepez, [address], [place], [address]. tel:[phone] OFFICE/OUTPATI ENT VISIT, EST [facility], [address], [place], [place], [address] , [place] tel: [phone] [facility] Follow Up of OB (chief complaint) Supervision of other normal 4 Arlene Pope. [address], [place], [place], [address], [place]. tel:[phone] Referring Provider: Niko Yepez, [address], [place], [address]. tel:[phone] OFFICE/OUTPATI ENT VISIT, EST [facility], [address], [place], [place], [address] , [place] tel: [phone] [facility] routine centering group (chief complaint) Supervision of other normal 4 Arlene Pope. [address], [place], [place], [address], [place]. tel:[phone] Referring Provider: Niko Yepez, [address], [place], [address]. tel:[phone] OFFICE/OUTPATI ENT VISIT, EST [facility], [address], [place], [place], [address] , [place] tel: [phone] [facility] OB centering (chief complaint) Supervision of other normal 4 Arlene Pope. [address], [place], [place], [address], [place]. tel:[phone] Referring Provider: Niko Yepez, [address], [place], [address]. tel:[phone] OFFICE/OUTPATI ENT VISIT, EST [facility], [address], [place], [place], [address] , [place] tel: [phone] [facility] centereing (chief complaint) PREG STATE, INCIDENTAL 4 Arlene Pope. [address], [place], [place], [address], [place]. tel:[phone] Referring Provider: Niko Yepez, [address], [place], [address] [place] [address]. tel:[phone] [facility], [address], [place], [address] [place] [address] , tel: [phone] [facility] No Information March-1 2-201 4 Arlene Pope. [address], [place], [address] [place] [address], [place]. tel:[phone] OFFICE/OUTPATI ENT VISIT, EST [facility], [address], [place], [address] [place] [address] , tel: [phone] [facility] No Information March-0 8-201 4 Arlene Pope. [address], [place], [address] [place] [address], [place]. tel:[phone] Referring Provider: Niko Yepez, [address], [place], [address] [place] [address]. tel:[phone] OFFICE/OUTPATI ENT VISIT, EST [facility], [address], [place], [address] [place] [address] , tel: [phone] [facility] No Information Feb-2 4-201 4 Arlene Pope. [address], [place], [address] [place] [address], [place]. tel:[phone] Referring Provider: Niko Yepez, [address], [place], [address] [place] [address]. tel:[phone] OFFICE/OUTPATI ENT VISIT, EST [facility], [address], [place], [address] [place] [address] , tel: [phone] [facility] No Information Feb-1 0-201 4 Arlene Pope. [address], [place], [address] [place] [address], . tel:[phone] Referring Provider: Niko Yepez, [address], [place], [address] [place] [address]. tel:[phone] [facility], [address], [place], [place], [address] , tel: [phone] [facility] No Information Feb-0 4 No Information [facility], [address], [place], [place], [address] , tel: [phone] [facility] No Information Jan- 4 Arlene Pope. [address], [place], [address] [place] [address], . tel:[phone] Consulting Provider: Hayley Astorga, [address], [place], [address]. tel:[phone] [facility], [address], [place], [address] [place] [address] , tel: [phone] [facility] No Information 4 Management Case. [address], [place], [address] [place] [address], . tel:[phone] Consulting Provider: Hayley Astorga, [address], [place], [address]. tel:[phone] OFFICE/OUTPATI ENT VISIT, EST [facility], [address], [place], [address] [place] [address] , tel: [phone] [facility] No Information 4 Arlene Pope. [address], [place], [address], . tel:[phone] Referring Provider: Niko Yepez, [address], [place], [address]. tel:[phone] OFFICE/OUTPATI ENT VISIT, EST [facility], [address], [place], [address] [place] [address] , tel: [phone] [facility] Screening examination for pulmonary tuberculosis 4 Arlene Pope. [address], [place], [place], [address], . tel:[phone] Referring Provider: Niko Yepez, [address], [place], [address]. tel:[phone] [facility], [address], [place], [place], [address] , tel: [phone] [facility] No Information 4 No Information OFFICE OUTPT EST 25 MIN [facility], [address], [place], [address] [place] [address] , tel: [phone] [facility] Supervision of other normal 4 Arlene Pope. [address], [place], [place], [address], [place]. tel:[phone] Referring Provider: Niko Yepez, [address], [place], [address]. tel:[phone] [facility], [address], [place], [place], [address] , tel: [phone] [facility] Supervision of other normal 3 Arlene Pope. [address], [place], [place], [address], [place]. tel:[phone] [facility], [address], [place], [place], [address] , tel: [phone] [facility] Dental examination 3 No Information [facility], [address], [place], [place], [address] , [place] tel: [phone] [facility] No Information 3 Arlene Pope. [address], [place], [place], [address], [place]. tel:[phone] OFFICE/OUTPATI ENT VISIT, EST [facility], [address], [place], [place], [address] , tel: [phone] [facility] Generic (chief complaint) Routine follow-up 3 Yuliet Flores. [address], [place], [place], [address], [place]. tel:[phone] OFFICE/OUTPATI ENT VISIT, EST [facility], [address], [place], [place], [address] , [place] tel: [phone] [facility] Generic (chief complaint) Routine follow-up 3 Yuliet Flores. [address], [place], [place], [address], [place]. tel:[phone] [facility], [address], [place], [place], [address] , [place] tel: [phone] [facility] Home Visit (chief complaint) Routine follow-up 3 Management Case. [address], [place], [place], [address], [place]. tel:[phone] Consulting Provider: Hayley Astorga, [address], [place], [address]. tel:[phone] HOSPITAL DISCHARGE DAY MANAGEMENT; 30 MINUTES OR LESS [facility], [address], [place], [place], [address] , [place] tel: [phone] [facility] No Information 3 Sonia Haywood. [address], [place], [place], [address], [place]. [phone] [facility] [place] D 15 MIN [facility], [address], [place], [place], [address] , [place] tel: [phone] [facility] No Information 3 No Information [facility], [address], [place], [place], [address] , [place] tel: [phone] [facility] No Information 3 No Information OFFICE/OUTPATI ENT VISIT, EST [facility], [address], [place], [place], [address] , [place] tel: [phone] [facility] No Information 3 Schiefelbei n Sandra. [address], [place], [address], [place]. tel:[phone] OFFICE/OUTPATI ENT VISIT, EST [facility], [address], [place], [place], [address] , [place] tel: [phone] [facility] No Information 2 Schiefelbei n Sandra. [address], [place], [place], [address], [place]. tel:[phone] OFFICE/OUTPATI ENT VISIT, EST [facility], [address], [place], [place], [address] , [place] tel: [phone] [facility] No Information 2 Schiefelbei n Sandra. [address], [place], [place], [address], [place]. tel:[phone] [facility], [address], [place], [place], [address] , [place] tel:[phone] [facility] Elevated liver enzymes 2 Schiefelbei n Sandra. [address], [place], [address], [place]. tel:[phone] OFFICE/OUTPATI ENT VISIT, EST [facility], [address], [place], [place], [address] , [place] tel: [phone] [facility] No Information 2 Schiefelbei n Sandra. [address], [place], [address], [place]. tel:[phone] OFFICE/OUTPATI ENT VISIT, EST [facility], [address], [place], [place], [address] , [place] tel: [phone] [facility] No Information 2 Schiefelbei n Sandra. [address], [place], [place], [address], [place]. tel:[phone] OFFICE/OUTPATI ENT VISIT, EST [facility], [address], [place], [place], [address] , [place] tel: [phone] [facility] No Information 0 5-201 2 Schiefelbei n Sandra. [address], [place], [place], [address], [place]. tel:[phone] OFFICE/OUTPATI ENT VISIT, EST [facility], [address], [place], [place], [address] , [place] tel: [phone] [facility] No Information 0 8 2 Schiefelbei n Sandra. [address], [place], [place], [address], [place]. tel:[phone] [facility], [address], [place], [place], [address] , [place] tel: [phone] [facility] No Information 0 8 2 Schiefelbei n Sandra. [address], [place], [address], [place]. tel:[phone] OFFICE/OUTPATI ENT VISIT, EST [facility], [address], [place], [place], [address] , [place] tel:[phone] [facility] No Information 2 4 2 Schiefelbei n Sandra. [address], [place], [place], [address], [place]. tel:[phone] OFFICE/OUTPATI ENT VISIT, EST [facility], [address], [place], [place], [address] , [place] tel: [phone] [facility] Routine infant or child health check Sep- 0-201 2 Schiefelbei n Sandra. [address], [place], [place], [address], [place]. tel:[phone] OFFICE/OUTPATI ENT VISIT, EST [facility], [address], [place], [place], [address] , [place] tel: [phone] [facility] No Information Aug-1 3-201 2 Schiefelbei n Sandra. [address], [place], [place], [address], [place]. tel:[phone] OFFICE/OUTPATI ENT VISIT, EST [facility], [address], [place], [place], [address] , [place] tel: [phone] [facility] No Information 2 Yuliet Flores. [address], [place], [place], [address], [place]. tel:[phone] OFFICE/OUTPATI ENT VISIT, EST [facility], [address], [place], [place], [address] , [place] tel: [phone] [facility] Supervision of other normal 2 Yuliet Flores. [address], [place], [place], [address], [place]. tel:[phone] [facility], [address], [place], [place], [address] , [place] tel: [phone] [facility] PN INTAKE (chief complaint) Supervision of other normal pregnancySup ervision of other normal 2 Management Case. [address], [place], [place], [address], [place]. tel:[phone] [facility], [address], [place], [place], [address] , [place] tel: [phone] [facility] No Information 2 Arlene Pope. [address], [place], [place], [address], [place]. tel:[phone] [facility], [address], [place], [place], [address] , [place] tel: [phone] [facility] examination or test, unconfirmed 2 Josi Murphy. [address], [place], [place], [address], [place]. tel:[phone] OFFICE/OUTPATI ENT VISIT, EST [facility], [address], [place], [address] , [place] tel: [phone] [facility] implanon removal (chief complaint) Surveillance of other contraceptiv e methodSurvei llance of implantable subdermal contraceptiv eNeed for prophylactic vaccination and inoculation, other viral diseases 2 No Information [facility], [address], [place], [place], [address] , [place] tel: [phone] [facility] No Information 1 No Information [facility], [address], [place], [place], [address] , [place] tel: [phone] [facility] implanon insertion (chief complaint) Insertion of implantable subdermal contraceptiv e 0 0 No Information OFFICE/OUTPATI ENT VISIT, EST [facility], [address], [place], [place], [address] , [place] tel: [phone] [facility] depo provera injection (chief complaint) Surveillance of other contraceptiv e method 0 No Information OFFICE/OUTPATI ENT VISIT, EST [facility], [address], [place], [place], [address] , [place] tel: [phone] [facility] IUD check (chief complaint) Surveillance of intrauterine contraceptiv e device 0 Yuliet Flores. [address], [place], [place], [address], [place]. tel: [phone] OFFICE/OUTPATI ENT VISIT, EST [facility], [address], [place], [place], [address] , [place] tel: [phone] [facility] lab results (chief complaint) Other specified chlamydial diseases 3200 9 Yuliet Flores. [address], [place], [place], [address], [place]. tel:[phone] OFFICE OUTPT EST 25 MIN [facility], [address], [place], [place], [address] , [place] tel: [phone] [facility] iud placement (chief complaint) Insertion of intrauterine contraceptiv e device 9 Yuliet Flores. [address], [place], [place], [address], [place]. tel:[phone] OFFICE OUTPT EST 10 MIN [facility], [address], [place], [place], [address] , [place] tel: [phone] [facility] needs depo (chief complaint) No Information 9 No Information [facility], [address], [place], [place], [address] , [place] tel: [phone] [facility] Immunization Location No Information 9 No Information OFFICE OUTPT EST 10 MIN [facility], [address], [place], [place], [address] , [place] tel: [phone] [facility] Other venereal diseases due to chlamydia trachomatis, lower genitourinar y sitesSurveil beverly of other contraceptiv e method 9 No Information OFFICE OUTPT EST 10 MIN [facility], [address], [place], [place], [address] , [place] tel: [phone] [facility] CONTRACEPT SURVEILL NEC 9 No Information OFFICE OUTPT EST 10 MIN [facility], [address], [place], [place], [address] , [place] tel: [phone] [facility] VACCN/INOC VIRAL DIS NECOTH VD CHLM TRCH LOWR 9 No Information OFFICE/OUTPATI ENT VISIT, EST [facility], [address], [place], [place], [address] , [place] tel: [phone] [facility] OTH SPCF CHLAMYDIAL INFC 9 No Information PERIODIC COMPREHENSIVE PREVENTIVE MED REE/M; ESTABLISHED PATIENT; 10-19 [facility], [address], [place], [place], [address] , [place] tel: [phone] [facility] ROUT POSTPART FOLLOW-UP 8 No Information [facility], [address], [place], [place], [address] , tel: [phone] [facility] ROUT POSTPART FOLLOW-UP 8 Rizwan Acevesan. [address], [place], [place], [address]. tel:[phone] OFFICE CONSULT, 15 MIN, 3 HANDLEY COMPS: PROB FOCUS HX; PROB FOCUS EXAM; STRTFWD [facility], [address], [place], [place], [address] , [place] tel: [phone] [facility] COUNSELING NOS 0- 8 No Information OFFICE CONSULT, 15 MIN, 3 HANDLEY COMPS: PROB FOCUS HX; PROB FOCUS EXAM; STRTFWD [facility], [address], [place], [place], [address] , [place] tel: [phone] [facility] COUNSELING NOS -200 8 No Information OFFICE OUTPT EST 10 MIN [facility], [address], [place], [place], [address] , [place] tel: [phone] [facility] SUPERVIS NORMAL 1ST PREG Nov- 5 8 No Information OFFICE OUTPT EST 10 MIN [facility], [address], [place], [place], [address] , [place] tel: [phone] [facility] SUPERVIS NORMAL 1ST PREG 8 No Information OFFICE CONSULT, 15 MIN, 3 HANDLEY COMPS: PROB FOCUS HX; PROB FOCUS EXAM; STRTFWD [facility], [address], [place], [place], [address] , [place] tel: [phone] [facility] COUNSELING NOS 8 No Information OFFICE OUTPT EST 10 MIN [facility], [address], [place], [place], [address] , [place] tel: [phone] [facility] SUPERVIS NORMAL 1ST PREG 8 No Information [facility], [address], [place], [place], [address] , [place] tel: [phone] [facility] PREG STATE, INCIDENTAL 0 8 No Information OFFICE OUTPT EST 10 MIN [facility], [address], [place], [place], [address] , [place] tel: [phone] [facility] SUPERVIS NORMAL 1ST PREG Aug-0 9200 8 No Information OFFICE OUTPT EST 10 MIN [facility], [address], [place], [place], [address] , [place] tel: [phone] [facility] SUPERVIS NORMAL 1ST PREG Sep-2 5-200 8 No Information OFFICE CONSULT, 15 MIN, 3 HANDLEY COMPS: PROB FOCUS HX; PROB FOCUS EXAM; STRTFWD [facility], [address], [place], [place], [address] , [place] tel: [phone] [facility] COUNSELING NOS Jul-0 2 8 No Information OFFICE OUTPT EST 10 MIN [facility], [address], [place], [place], [address] , [place] tel: [phone] [facility] SUPERVIS NORMAL 1ST PREG Jun- 8 No Information [facility], [address], [place], [place], [address] , [place] tel: [phone] [facility] PREG STATE, INCIDENTAL Jun- 8 No Information OFFICE OUTPT EST 10 MIN [facility], [address], [place], [place], [address] , [place] tel: [phone] [facility] SUPERVIS NORMAL 1ST PREG Jun-0 8 No Information OFFICE CONSULT, 15 MIN, 3 HANDLEY COMPS: PROB FOCUS HX; PROB FOCUS EXAM; STRTFWD [facility], [address], [place], [place], [address] , [place] tel: [phone] [facility] COUNSELING NOS 8 No Information [facility], [address], [place], [place], [address] , [place] tel: [phone] [facility] PREG STATE, INCIDENTAL 8 Rizwan Hardy. [address], [place], [place], [address]. tel:[phone] OFFICE CONSULT, 15 MIN, 3 HANDLEY COMPS: PROB FOCUS HX; PROB FOCUS EXAM; STRTFWD [facility], [address], [place], [place], [address] , [place] tel: [phone] [facility] COUNSELING NOS - 8 No Information OFFICE OUTPT EST 10 MIN [facility], [address], [place], [place], [address] , [place] tel: [phone] [facility] SUPERVIS NORMAL 1ST PREG 7 8 No Information [facility], [address], [place], [place], [address] , [place] tel: [phone] [facility] PREG STATE, INCIDENTAL 8 No Information OFFICE OUTPT EST 10 MIN [facility], [address], [place], [place], [address] , [place] tel: [phone] [facility] SUPERVIS NORMAL 1ST PREG 8 No Information OFFICE CONSULT, 15 MIN, 3 HANDLEY COMPS: PROB FOCUS HX; PROB FOCUS EXAM; STRTFWD [facility], [address], [place], [place], [address] , [place] tel: [phone] [facility] COUNSELING NOS 8 No Information OFFICE OUTPT EST 25 MIN [facility], [address], [place], [place], [address] , [place] tel: [phone] [facility] SUPERVIS NORMAL 1ST PREG 8 No Information OFFICE CONSULT, 15 MIN, 3 HANDLEY COMPS: PROB FOCUS HX; PROB FOCUS EXAM; STRTFWD [facility], [address], [place], [place], [address] , [place] tel: [phone] [facility] COUNSELING NOS 8 No Information [facility], [address], [place], [place], [address] , [place] tel: [phone] [facility] PREG STATE, INCIDENTAL 8 Rizwan Hardy. [address], [place], [place], [address]. [phone] [facility], [address], [place], [place], [address] , [place] tel:[phone] [facility] PREG STATE, INCIDENTAL Apr-3 0-200 8 Rizwan Hardy. [address], [place], [place], [address]. tel:[phone] [facility], [address], [place], [place], [address] , [place] tel: [phone] [facility] PREG STATE, INCIDENTAL Apr-2 9-200 8 Rizwan Hardy. [address], [place], [place], [address]. tel:[phone] OFFICE OUTPT EST 10 MIN [facility], [address], [place], [place], [address] , [place] tel: [phone] [facility] SUPERVIS NORMAL 1ST PREG Apr- 6200 8 No Information OFFICE CONSULT, 15 MIN, 3 HANDLEY COMPS: PROB FOCUS HX; PROB FOCUS EXAM; STRTFWD [facility], [address], [place], [place], [address] , [place] tel: [phone] [facility] COUNSELING NOS Apr- 6200 8 No Information [facility], [address], [place], [place], [address] , [place] tel: [phone] [facility] PREG STATE, INCIDENTAL Apr-1 6-200 8 Rizwan Hardy. [address], [place], [place], [address]. tel:[phone] OFFICE OUTPT NEW 10 MIN [facility], [address], [place], [place], [address] , [place] tel: [phone] [facility] ABSENCE OF MENSTRUATION Apr- 4-200 8 Ericiefelbekenya Flores. [address], [place], [place], [address], [place]. [phone] Family History Family Member Type Diagnosis Age At Onset No Information Immunizations Vaccine Date Status Comments Adacel/Boostrix (Tdap) administered [facility] e: New Immunization Record 4 years and older, trivalent administered Source: New Immunization Record Flu (split) (3 yrs or older) administered Source: New Immunization Record HPV administered Source: New Imm unization Record HPV administered Source: New Imm unization Record VFC-HPV TYP 6 11 16 18 QUADRIV 3 DOSE SCHED IM administered Source: New Immu nization Record VFC-INFLUENZA VIRUS VACCINE, SPLIT, 3 YRS+ DOSE, IM/JET INJECTION USE administered Source: New Immuniza tion Record Payers Payer name Insurance type Covered libertarian ID Authoriza tion(s) [facility] [id number] Medicaid - Medical [id number] Social History Type Description Quantity Date Captured Comments Alcohol Use Details No Caffeine Use Details No Tobacco Use Status No Information Smoking Status Never smoker Sex Female Sexual Orientation Straight or heterosexual Nov Gender Identity Female Chief Complaint And Reason For Visit No Information Reason For Referral Reason For Referral No Information Plan Of Treatment Date Type Action Status Goal AST. Due on due Goal ALT. Due on due Goal HPV (3rd). Due on 9 due Goal HPV (2nd) due Goal ALT. Due on due Goal AST. Due on due Goal HPV (3rd). Due on 9 due Goal HPV (2nd) due Goal AST. Due on due Goal ALT. Due on due Goal HPV (2nd) due Goal HPV (3rd). Due on 9 due Goal ALT. Due on due Goal HPV (3rd). Due on 9 due Goal AST. Due on due Goal HPV (2nd) due Goal ALT. Due on due Goal AST. Due on due Goal HPV (3rd). Due on 9 due Goal HPV (2nd) due Goal HPV (2nd) due Goal ALT. Due on due Goal AST. Due on due Goal HPV (3rd). Due on 9 due Goal ALT. Due on due Goal HPV (2nd) due Goal HPV (3rd). Due on 9 due Goal AST. Due on due Goal HPV (2nd) due Goal ALT. Due on due Goal AST. Due on due Goal HPV (3rd). Due on 9 due Goal HPV (3rd). Due on 9 due Goal AST. Due on due Goal ALT. Due on due Goal HPV (2nd) due Goal HPV (2nd) due Goal HPV (3rd). Due on 9 due Goal ALT. Due on due Goal AST. Due on due Goal ALT. Due on due Goal HPV (3rd). Due on 9 due Goal AST. Due on due Goal HPV (2nd) due Goal HPV (3rd). Due on 9 due Goal HPV (2nd) due Goal ALT. Due on due Goal AST. Due on due Goal AST. Due on due Goal ALT. Due on due Goal HPV (3rd). Due on 9 due Goal HPV (2nd) due Goal ALT. Due on due Goal HPV (2nd) due Goal HPV (3rd). Due on 9 due Goal AST. Due on due Goal ALT. Due on due Goal HPV (3rd). Due on 9 due Goal AST. Due on due Goal HPV (2nd) due Goal HPV (3rd). Due on 9 due Goal ALT. Due on due Goal HPV (2nd) due Goal AST. Due on due Goal AST. Due on due Goal HPV (2nd) due Goal ALT. Due on due Goal HPV (3rd). Due on 9 due Goal ALT. Due on due Goal HPV (3rd). Due on 9 due Goal AST. Due on due Goal HPV (2nd) due Goal HPV (2nd) due Goal ALT. Due on due Goal AST. Due on due Goal HPV (3rd). Due on 9 due Goal PAP. Due on due Goal HPV (2nd) due Goal PAP. Due on due Goal HPV (3rd). Due on 9 due Goal ALT. Due on due Goal AST. Due on due Goal ALT. Due on due Goal Urinalysis. Due on due Goal BMP fasting. Due on due Goal H&P. Due on due Goal AST. Due on due Goal PAP. Due on due Goal PAP. Due on due Goal BMP fasting. Due on due Goal ALT. Due on due Goal H&P. Due on due Goal AST. Due on due Goal Urinalysis. Due on due Goal H&P. Due on due Goal ALT. Due on due Goal Urinalysis. Due on due Goal AST. Due on due Goal BMP fasting. Due on due Goal PAP. Due on due Goal ALT. Due on due Goal PAP. Due on due Goal Urinalysis. Due on due Goal H&P. Due on due Goal AST. Due on due Goal BMP fasting. Due on due Goal ALT. Due on due Goal H&P. Due on due Goal PAP. Due on due Goal Urinalysis. Due on due Goal AST. Due on due Goal BMP fasting. Due on due Goal Urinalysis. Due on due Goal PAP. Due on due Goal H&P. Due on due Goal ALT. Due on due Goal BMP fasting. Due on due Goal AST. Due on due Goal H&P. Due on due Goal BMP fasting. Due on due Goal PAP. Due on due Goal AST. Due on due Goal Urinalysis. Due on due Goal ALT. Due on due Goal Urinalysis. Due on due Goal H&P. Due on due Goal ALT. Due on due Goal PAP. Due on due Goal AST. Due on due Goal BMP fasting. Due on due Goal PAP. Due on due Goal Urinalysis. Due on due Goal BMP fasting. Due on due Goal ALT. Due on due Goal H&P. Due on due Goal AST. Due on due Goal H&P. Due on due Goal ALT. Due on due Goal AST. Due on due Goal PAP. Due on due Goal BMP fasting. Due on due Goal Urinalysis. Due on 13 due Goal BMP fasting. Due on due Goal ALT. Due on due Goal AST. Due on due Goal PAP. Due on due Goal Urinalysis. Due on 13 due Goal H&P. Due on due Goal ALT. Due on due Goal AST. Due on due Goal BMP fasting. Due on due Goal H&P. Due on due Goal Influenza Vaccine. Due on due Goal PAP. Due on due Goal Urinalysis. Due on 13 due Goal HPV (2nd). Due on 2 due Goal HPV (1st). Due on 9 due Referral Referred To: [facility] Ultrasounds [address], [place], [phone] Ordered: Referrals: Radiology. [facility] OBN Ultrasounds. Diagnostic testing Appointment date/timeframe: 11/06/2018 ordered Referral Referred To: Rosmery Beaver [address] [place], [place], [address] Ordered: Referral: Rosmery Beaver. Behavioral Health. ordered Referral Referred To: [facility] Ultrasounds [address], [place], [id number] Ordered: Referral: [facility] Ultrasounds. Radiology. ordered Referral Referred To: [facility] Ordered: Referral: [facility]. Obstetrics/Maintenance And Utilities Supervisor. ordered Referral Referred To: [facility] Ultrasounds [address], [place], [phone] Ordered: Referral: [facility] Ultrasounds. Obstetrics/Maintenance And Utilities Supervisor. Evaluate and treat. ordered Future Order: Lab Order Bile Aci ds, Fractionated and Total, ([id number]), Appointment on: , Sent on: Sent Future Order: Lab Order COMPREHE NSIVE METABOLIC PANEL W/EGFR ([id number]), Appointment on: , Sent on: Sent Future Order: Lab Order CBC (H/H , RBC, INDICES, WBC, PLT) ([id number]), Appointment on: , Sent on: Sent Future Order: Lab Order STREPTOC OCCUS, GROUP B CULTURE ([id number]), Appointment on: , Sent on: Sent Nutrition Recommendation Nutrition therap y completed Nutrition Recommendation Nutrition therap y completed Nutrition Recommendation Nutrition therap y completed History Of Present Illness Encounter Date Complaint History Of Prese nt Illness 6wk pp 24 yr old G4 now P4005 here for 6 wk pp visitc/s for malpresentation for twinsnexplanon placed ppbabies doing well, help at homemood goodpap 9/18 ascus/+hpv--needs to be scheduled for colpo, deferred during prgnancy 2wk pp 24 yr old G4 now P4005 here for 2 wk pp visitc/s for malpresentation, twinsnexplanon placed ppvb is lightpap 9/18 ascus/+hpv, had deferred colpo during prenancybabies doing wellmood good, has help at homebottle feeding routine routine routine routine routine routine routine routine routine routine routine IOB routine 07/24/2018 PNI completed at [address]. with 23 year old A0 at EGA 4 02/07 with EDC of 03/29/19 based upon LMP of 06/22/18. RF#19-Living alone or single parent living alone. Patient had some brown spotting 2 weeks ago x1. Patient lives with 2 daughters - ages 9 & 5, and 1 son - age 4, all born vaginally with no complications. FOB involved. Client reports good support from family and friends. Patient denies any other significant health issues. Patient referred to outreach and WIC. Encouraged patient to make an appointment with dental.See EHR and scanned documents for more information. class teaching reviewed as follows: anticipated course of care to increase chances of a healthy and good delivery outcomes, limitations in use of over the counter medications, hospital facilities, avoid drug, alcohol, tobacco use in and risk their use poses to fetus, exercising/physical activity in , dietary recommendations: increase fiber intake, food safety (wash fruits and vegetables, avoid raw meat, raw fish, undercooked eggs, and unpasteurized dairy), recommendations for 8-10 glasses of healthy fluids daily, nutrition and weight gain in , vitamins/iron daily, risk factors identified by history, s/s of miscarriage, seat belt use, physical activity, breast feeding, and PP family planning options. Pt v/u, denies questions. Evelyne Zhu RN. depo shot Patient here on time for Depo Provera injection.Patient denies vaginal bleeding, abnormal vaginal discharge, and skin changes at injection site.Patient is interested in the Mirena. depo shot (comments) visit limit ed as patient arrived latehere to continue depo provera contraceptionNo headache, depression, significant vaginal bleeding.Exam: comfortable--[id number] history: No other new drug allergies nor problems since last visit. Patient is taking medications as prescribed here without problems except as noted above.Medications are reconciled from any interval medical encounters elsewhere.ASSESSMENTS [details] / PLANS (see also medication and order details)ACTIVE PROBLEMS> Breast-feeding>>> Anemia , resolvedObesity / guidance on physical activity & nutrition given .fertility: Depo-Provera, due [id number] prev: 10y risk = %. lifetime risk = % / cancer screening: pap due > . mamm due > . /other screening:. Iron due > . / vaccination: HPV due > . Td(ap) due > . Flu due . pneumo due > . Raricella due > . Zoster due > . MMR due > . /whole SELF-CARE: the foundation of healing and well-being>personal goal: RETURN for a visit in > three months , or sooner for new or worsening or persisting problems.PROCESSactive problem list up to date at visit > . Additions made >patient plan done >at next visit >PROFILE relationship: ed/occupation: dwelling: stressors: childbirth [id number]: insurance: pharmacy: contact: SALIENT PAST Hxdrug allergy: inactive problems: surgery:transient prob occurrences: tests & imaging:pos family hx: DOCUMENTATIONEducation about problems addressed today, active medication list, and information on new medications are provided to patient or parent.Patient or guardian verbalized understanding of and agreement with plan, including medications and return for next visit. depo shot check up (comments) vaginal deli very 2 weeks ago without complicationbaby is well. has support at home.Light lochia.No fever, dysuria, abdominal pain, depression.> without problems> contraceptive plan: desires Depo-Provera while saving up for next plan onExam: ComfortableAbdomen: uterus small, non-tender.--additional history: No other new drug allergies nor problems since last visit. Patient is taking medications as prescribed here without problems except as noted above.Medications are reconciled from any interval medical encounters elsewhere.ASSESSMENTS [details] / PLANS (see also medication and order details)ACTIVE PROBLEMS> well Breast-feeding>>> Anemia / iron twice daily, labObesity / guidance on physical activity & nutrition given .fertility: Depo-Provera begun , due [id number] prev: 10y risk = %. lifetime risk = % / cancer screening: pap due > . mamm due > . /other screening: Hep C due > . iron due > . / vaccination: HPV due > . Td(ap) due > . Flu due . pneumo due > . Raricella due > . Zoster due > . MMR due > . /whole SELF-CARE: the foundation of healing and well-being>personal goal: RETURN for a visit in > three months , or sooner for new or worsening or persisting problems.PROCESSactive problem list up to date at visit > . Additions made >patient plan done >at next visit >PROFILE relationship: ed/occupation: dwelling: stressors: childbirth [id number]: insurance: pharmacy: contact: SALIENT PAST Hxdrug allergy: inactive problems: surgery:transient prob occurrences: tests & imaging:pos family hx: DOCUMENTATIONEducation about problems addressed today, active medication list, and information on new medications are provided to patient or parent.Patient or guardian verbalized understanding of and agreement with plan, including medications and return for next visit. check up PP home visit routine routine routine Follow Up of OB routine [facility] OB centering centereing Functional Status Date Functional Assessmen t No Information Instructions Date Instruction Additional Infor mando drink plenty of water Related to Encounter for routine follow-up increase fruits and veggies in diet, fiber Related to Encounter for routine follow-up Prescribed activity/ exercise education Related to Body mass index (BMI) 31.0-31.9, adult drink plenty of water Related to Encounter for routine follow-up pelvic rest Related to Encou nter for routine follow-up Prescribed activity/ exercise education Related to Body mass index (BMI) 30.0-30.9, adult drink plenty of water Related to Supervision of high risk , third trimester keep all ob appointments Related to Supervision of high risk , third trimester keep all ob appointments Related to Supervision of high risk , third trimester drink plenty of water Related to Supervision of high risk , third trimester drink plenty of water Related to Supervision of high risk , third trimester keep all ob appointments Related to Supervision of high risk , third trimester drink plenty of water Related to Supervision of high risk , third trimester increase fruits and veggies in diet, fiber Related to Supervision of high risk , third trimester drink plenty of water Related to Supervision of high risk , 2nd trimester keep all ob appointments Related to Supervision of high risk , 2nd trimester drink plenty of water Related to Supervision of high risk , 2nd trimester keep all ob appointments Related to Supervision of high risk , 2nd trimester Prescribed activity/ exercise education Related to Body mass index (BMI) 34.0-34.9, adult drink plenty of water Related to Supervision of high risk , 2nd trimester keep all ob appointments Related to Supervision of high risk , 2nd trimester drink plenty of water Related to Twin , dichorionic/diamniotic, second trimester keep all ob appointments Related to Twin , dichorionic/diamniotic, second trimester drink plenty of water Related to Supervision of high risk , 2nd trimester call or go to the ER if bleeding Related to Supervision of high risk , 2nd trimester drink plenty of water Related to Supervision of high risk , 1st trimester keep all ob appointments Related to Supervision of high risk , 1st trimester drink plenty of water Related to Supervision of high risk , 1st trimester call or go to the ER if bleeding Related to Supervision of high risk , 1st trimester Patient to follow up March 07- for next Depo Provera injection.Mirena educational information discussed and given to patient. Related to Contraceptive surveillance, unspecified Safe sexual practice s discussed with patient. Related to Contraceptive surveillance, unspecified Increase physical activity. Rela tamika to Contraceptive surveillance, unspecified Reversible methods o f contraception discussed with patient. Related to Contraceptive surveillance, unspecified Assessments Type Assessment Date No Information Patient Care Teams Name Effective Dates (start - stop) Status Members No Information
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
--- NOTE | 2025-03-31 18:13 | PC.NURSE ---
Pt seen exiting ER waiting room with steady gait and seen getting into vehicle.
--- OUTSIDE RECORDS SUMMARY | 2025-03-31 19:33 | XMS_ITS | Referral Summary ---
Author Organization [facility] Address [address] [place] [address] Care Team Providers Care Brake Operator Heavy Duty Name Role Phone Rosmery Mckeon Primary Care [...] PM CDT Legal Sex Female 3:26 AM MANAGER PERFORMANCE IMPROVEMENT Gender Identity Female 03/04/2023 2:13 PM CDT Sexual Orientation Straight 03/04/2023 2: 13 PM CDT Last Filed Vital Signs Vital Sign Reading Time Taken Comments Blood Pressure 114/71 10/04/2024 8:26 PM MANAGER PERFORMANCE IMPROVEMENT Pulse 60 10/04/2024 8:26 PM MANAGER PERFORMANCE IMPROVEMENT Temperature 36.6 C (97.9 F) 10/04/2024 5:57 PM MANAGER PERFORMANCE IMPROVEMENT Respiratory Rate 16 10/04/2024 8:26 PM MANAGER PERFORMANCE IMPROVEMENT Oxygen Saturation 100% 10/04/2024 8:26 PM MANAGER PERFORMANCE IMPROVEMENT Inhaled Oxygen Concentration - - Weight 87.1 kg (192 lb) 03/04/2023 2:08 PM CDT Height 152.4 cm (5') 03/04/2023 2:08 PM CDT Body Mass Index 37.5 03/04/2023 2:08 PM CDT Plan of Treatment Not on file Insurance [facility] Advance Directives For more information, please contact: [phone] * Full Code (Latest Code Status on File) Date Activated Date Inactivated Comments 02/17/2019 11:00 AM 02/20/2019 6:51 PM * Full Code Date Activated Date Inactivated Comments 02/17/2019 3:19 AM 02/17/2019 11:00 AM Full CPR in case of cardiopulmonary arrest Care Teams Brake Operator Heavy Duty Relationship Specialty Start Date End Date Rosmery Mckeon PA PCP - General Physician Supplemental Nurse 10/04/24
--- OUTSIDE RECORDS SUMMARY | 2025-03-31 19:33 | XMS_ITS | Clinical Summary ---
Author Organization [facility] Address [address] [place] [address] Care Team Providers Care Research Clerk Name Role Phone Rosmery Mckeon Primary Care [...] PM CDT Legal Sex Female 3:26 AM OUTSIDE CUTTER Gender Identity Female 03/04/2023 2:13 PM CDT [...] TOM BLACK ,Venus Diego MD Complications:None Delivery Location:[facility] Main C ampus ([facility] 58LD) 2018 Term 37w 5d 0h 01m 0h 01m 3.08 kg (6 lb 12.6 oz) M CS-LT ranv Spinal N Livin g 8 9 SANCH YADIRA VARGAS Meliss a Dawn, MD Complications:None Delivery Location:[facility] Main C ampus ([facility] 58[facility]) Last Filed Vital Signs Vital Sign Reading Time Taken Comments Blood Pressure 114/71 10/04/2024 8:26 PM OUTSIDE CUTTER Pulse 60 10/04/2024 8:26 PM OUTSIDE CUTTER Temperature 36.6 C (97.9 F) 10/04/2024 5:57 PM OUTSIDE CUTTER Respiratory Rate 16 10/04/2024 8:26 PM OUTSIDE CUTTER Oxygen Saturation 100% 10/04/2024 8:26 PM OUTSIDE CUTTER Inhaled Oxygen Concentration - - Weight 87.1 [...] patient's age to complete this topic Insurance [facility] Advance Directives For more information, please contact: [phone] * Full Code (Latest Code Status on File) Date Activated Date Inactivated Comments 02/17/2019 11:00 AM 02/20/2019 6:51 PM * Full Code Date Activated Date Inactivated Comments 02/17/2019 3:19 AM 02/17/2019 11:00 AM Full CPR in case of cardiopulmonary arrest Care Teams Research Clerk Relationship Specialty Start Date End Date Rosmery Mckeon PA PCP - General Physician Harness Cleaner 10/04/24
--- OUTSIDE RECORDS SUMMARY | 2025-03-31 19:33 | XMS_ITS | Continuity of Care Document ---
Author Organization [email or web address] [facility] Address [address] [place] [address] Phone Care Team Providers Care Field Clerk Name Role Phone Zoey DMD, Nitin Unavailable [...] and/or drug screening 9 [facility] 15 MIN [facility] 15 MIN DELIVERY ONLY INSERTION, NON-BIODEGRADABLE [...] Voided Encounter HOSPITAL DISCHARGE DAY MANAGEMENT; 30 OH NUTES OR LESS OFFICE/OUTPATIENT VISIT, EST OFFICE/OUTPATIENT [...] [facility], AT-RISK ENHANCED SERVICE PACKAGE (INCLUDES [id number]) OFFICE/OUTPATIENT VISIT, EST SKIN TEST; TUBERCULOSIS, INTRADERMAL [...] NON-PHYSICI AN HOSPITAL DISCHARGE DAY MANAGEMENT; 30 OH NUTES OR LESS [facility] 15 MIN VAGINAL DELIVERY ONLY (WITH [...] Injection, medroxyprogesterone acetate ( Depo-Provera), 150 mg OFFICE OUTPT EST 10 MIN N.GONORRHOEAE, DNA, AMP PROB CHYLMD TRACH, DNA, AMP PROBE VFC-HPV TYP 6 11 16 18 QUADRIV 3 DOSE SC HED IM OFFICE/OUTPATIENT VISIT, EST AZITHROMYCIN DIHYDRATE, ORAL, CAPSULES/P OWDER, 1 GRAM CHYLMD TRACH, DNA, AMP PROBE COLLECTION OF VENOUS BLOOD BY VENIPUNCTU RE PERIODIC COMPREHENSIVE PREVENTIVE MED RE E/M; ESTABLISHED PATIENT; 10-19 BLOOD COUNT; HEMATOCRIT (HCT) 8 Injection, medroxyprogesterone acetate ( Depo-Provera), 150 mg N.GONORRHOEAE, DNA, AMP PROB CYTP C/V AUTO THIN LYR PREPJ SCR MNL RES CR PHYS CM- Woman - Month with Face to F herminio Visit OFFICE CONSULT, 15 MIN, 3 KE Y COMPS: PROB FOCUS HX; PROB FOCUS EXAM; STRTFWD OFFICE CONSULT, 15 MIN, 3 KE Y COMPS: PROB FOCUS HX; PROB FOCUS EXAM; [facility] OFFICE OUTPT EST 10 MIN URNLS DIP STICK/TABLET RGNT AUTO W/O TONY CULTURE, BACTERIAL; QUANTITATIVE COLONY COUNT, URINE URNLS DIP STICK/TABLET RGNT AUTO W/O TONY OFFICE OUTPT EST 10 MIN OFFICE CONSULT, 15 MIN, 3 KE Y COMPS: PROB FOCUS HX; PROB FOCUS EXAM; [facility] URNLS DIP STICK/TABLET RGNT AUTO W/O TONY CULTURE, BACTERIAL; QUANTITATIVE COLONY COUNT, URINE OFFICE OUTPT EST 10 MIN CM- Woman - Month with No Face t o Face Visit CULTURE, PRESUMPTIVE, PATHOGENIC ORGANIS MS, SCREENING ONLY; [...] URINE CHYLMD PNEUM, DNA, DIR PROBE OFFICE CONSULT, 15 MIN, 3 KE Y COMPS: PROB FOCUS HX; PROB FOCUS EXAM; [facility] OFFICE OUTPT EST 10 MIN URNLS DIP STICK/TABLET RGNT AUTO W/O TONY CM- Woman - Month with No Face t o Face Visit CHYLMD TRACH, DNA, AMP PROBE CULTURE, BACTERIAL; QUANTITATIVE COLONY COUNT, URINE BLOOD COUNT; COMPLETE (CBC), AUTOMATED (HGB, HCT, RBC, WBC AND PLATELET COUNT) COLLECTION OF VENOUS BLOOD BY VENIPUNCTU RE URNLS DIP STICK/TABLET RGNT AUTO W/O TONY OFFICE OUTPT EST 10 MIN GLUCOSE; POST GLUCOSE DOSE (INCLUDES GLU COSE) N.GONORRHOEAE, DNA, AMP PROB OFFICE CONSULT, 15 MIN, 3 KE Y COMPS: PROB FOCUS HX; PROB FOCUS EXAM; [facility] CM- Woman - Month with Face to F herminio Visit OFFICE CONSULT, 15 MIN, 3 KE Y COMPS: PROB FOCUS HX; PROB FOCUS EXAM; [facility] OFFICE OUTPT EST 10 MIN URNLS DIP STICK/TABLET RGNT AUTO W/O TONY CM- Woman - Month with No Face t o Face Visit URNLS DIP STICK/TABLET RGNT AUTO W/O TONY OFFICE OUTPT EST 10 MIN OFFICE CONSULT, 15 MIN, 3 KE Y COMPS: PROB FOCUS HX; PROB FOCUS EXAM; [facility] CYTP C/V AUTO THIN LYR PREPJ SCR MNL RES CR PHYS N.GONORRHOEAE, DNA, AMP PROB CHYLMD TRACH, DNA, AMP PROBE URNLS DIP STICK/TABLET RGNT AUTO W/O TONY SMEAR, WET MOUNT, SALINE/INK OFFICE OUTPT EST 25 MIN AZITHROMYCIN DIHYDRATE, ORAL, CAPSULES/P OWDER, 1 GRAM OFFICE CONSULT, 15 MIN, 3 KE Y COMPS: PROB FOCUS HX; PROB FOCUS EXAM; [facility] CM- Woman - Month with Face to F herminio Visit CM- Woman - Month with No Face t o Face Visit CM- Woman - Month with No Face t o Face Visit COLLECTION OF VENOUS BLOOD BY VENIPUNCTU RE CALCIFEDIOL (25-OH VITAMIN D-3) 008 HEMOGLOBIN ELECTROPHORESIS N.GONORRHOEAE, DNA, AMP PROB CHYLMD TRACH, DNA, AMP PROBE OB PANEL CULTURE, BACTERIAL; QUANTITATIVE COLONY COUNT, URINE OFFICE OUTPT EST 10 MIN LEAD URNLS DIP STICK/TABLET RGNT AUTO W/O TONY HEPATITIS C ANTIBODY; SKIN TEST; TUBERCULOSIS, INTRADERMAL Feb ANTIBODY; HIV-1 AND HIV-2, SINGLE ASSAY OFFICE CONSULT, 15 MIN, 3 KE Y COMPS: PROB FOCUS HX; PROB FOCUS EXAM; STRTFWD care, at-risk assessment care, at-risk enhanced service; antepartum management URINE TEST, BY VISUAL COLOR CO MPARISON METHODS OFFICE OUTPT NEW 10 MIN Advance Directives Directive Yes / No Effective Date File Name No Information Encounters Encounter Description Practice Location Reason(s) For Visit Diagnoses Date Provider Providers Copied on Encounter [facility], [address], [place], [place], [address] , tel: [phone] [facility] caries on pit and fissure surface penetrat into pulpEncounte r for dental exam and cleaning w abnormal findings 0 Zoey Taveras. [address], [place], [place], [address]. tel:[phone] OFFICE/OUTPATI ENT VISIT, EST [email or web address], [address], [place], [place], [address] , tel: [phone] [facility] 6wk pp (chief complaint) Body mass index (BMI) 31.0-31.9, adultEncount er for routine follow-upCer vical high risk HPV DNA test positiveEnco unter for screening for other disorder 0-201 9 No Information OFFICE/OUTPATI ENT VISIT, EST [facility], [address], [place], [place], [address] , tel: [phone] [facility] 2wk pp (chief complaint) Body mass index (BMI) 30.0-30.9, adultEncount er for routine follow-upEnc ounter for checking, reinsertion or removal of implantable subdermal contraceptiv eAbnormal Pap smear of cervixEncoun ter for screening for other disorder No Information [facility] 15 MIN [facility], [address], [place], [place], [address] , [place] tel: [phone] [facility] No Information Karina Monte. [address], [place], [place], [address], [place]. tel:[phone] Referring Provider: Mell Collins, [address], [place], [address]. tel:[phone] [facility] 15 MIN [facility], [address], [place], [place], [address] , [place] tel: [phone] [facility] No Information No Information [facility], [address], [place], [place], [address] , [place] tel: [phone] [facility], unspecified Management Case. [address], [place], [place], [address], [place]. tel:[phone] [facility], [address], [place], [place], [address] , [place] tel: [phone] [facility] No Information Sonia Haywood. [address], [place], [place], [address], [place]. tel:[phone] OFFICE/OUTPATI ENT VISIT, EST [facility], [address], [place], [place], [address] , [place] tel: [phone] [facility] routine (chief complaint) Supervision of high risk , third teujhpotz45 weeks gestation of pregnancyEnc ounter for screening for other disorder No Information [facility], [address], [place], [place], [address] , [place] tel: [phone] [facility] No Information 9 Sonia Haywood. [address], [place], [place], [address], [place]. tel:[phone] Referring Provider: Chastity Scott, [address], [place], [address]. tel:[phone] OFFICE/OUTPATI ENT VISIT, EST [facility], [address], [place], [place], [address] , [place] tel: [phone] [facility] routine (chief complaint) Supervision of high risk , third weeks gestation of pregnancyEnc ounter for screening for other disorderEnco unter for suprvsn of normal , unsp trimester 9 No Information OFFICE/OUTPATI ENT VISIT, EST [facility], [address], [place], [place], [address] , [place] tel: [phone] [facility] routine (chief complaint) Supervision of high risk , third ohmpiixwg72 weeks gestation of pregnancyEnc ounter for screening for other disorderEnco unter for suprvsn of normal , unsp trimester 9 No Information OFFICE/OUTPATI ENT VISIT, EST [facility], [address], [place], [place], [address] , [place] tel: [phone] [facility] routine (chief complaint) Supervision of high risk , third mqvqquueu41 weeks gestation of pregnancyEnc ounter for screening for other disorderEnco unter for suprvsn of normal , unsp trimester 9 No Information OFFICE OUTPT EST 25 MIN [facility], [address], [place], [place], [address] , [place] tel: [phone] [facility] routine (chief complaint) Supervision of high risk , third weeks gestation of pregnancyEnc ounter for immunization Encounter for screening for other disorderEnco unter for suprvsn of normal , unsp trimester 9 No Information OFFICE OUTPT EST 25 MIN [facility], [address], [place], [place], [address] , [place] tel: [phone] [facility] routine (chief complaint) Supervision of high risk , 2nd sakrezkxl38 weeks gestation of pregnancyEnc ounter for screening for other disorderEnco unter for suprvsn of normal , unsp trimester 9 No Information OFFICE OUTPT EST 25 MIN [facility], [address], [place], [place], [address] , [place] tel: [phone] [facility] routine (chief complaint) Body mass index (BMI) 34.0-34.9, adultSupervi clover of high risk , 2nd tetvcnoof97 weeks gestation of pregnancyEnc ounter for screening for diabetes mellitusEnco unter for screening for other mcbbeayp30 weeks gestation of 9 No Information OFFICE OUTPT EST 25 MIN [facility], [address], [place], [place], [address] , [place] tel: [phone] [facility] routine (chief complaint) Supervision of high risk , 2nd fucjhwbkz98 weeks gestation of pregnancyEnc ounter for suprvsn of normal , first trimester 9 No Information OFFICE OUTPT EST 25 MIN [facility], [address], [place], [place], [address] , [place] tel: [phone] [facility] routine (chief complaint) Twin , dichorionic/ diamniotic, second nbbmumtby89 weeks gestation of pregnancyEnc ounter for screening for other auodrcac87 weeks gestation of 8 No Information OFFICE OUTPT EST 25 MIN [facility], [address], [place], [place], [address] , [place] tel: [phone] [facility] routine (chief complaint) Supervision of high risk , 2nd uoptzvvgk98 weeks gestation of pregnancyEnc ounter for screening for other uqwxlegy09 weeks gestation of 8 No Information OFFICE OUTPT EST 25 MIN [facility], [address], [place], [place], [address] , [place] tel: [phone] [facility] routine (chief complaint) Supervision of high risk , 1st nyxawuiky12 weeks gestation of pregnancyEnc ounter for screening for other disorderLess than 8 weeks gestation of 8 No Information OFFICE OUTPT EST 40 MIN [facility], [address], [place], [place], [address] , [place] tel: [phone] [facility] IOB (chief complaint) Supervision of high risk , 1st trimester8 weeks gestation of pregnancyEnc ounter for immunization Encounter for screening for malignant neoplasm of cervixEncoun ter for screening for other disorderEnco unter for test, result positive 8 No Information [facility], [address], [place], [place], [address] , [place] tel: [phone] [facility] No Information Sonia Haywood. [address], [place], [place], [address], [place]. tel:[phone] Referring Provider: Chastity Scott, [address], [place], [address]. tel:[phone] [facility], [address], [place], [place], [address] , [place] tel: [phone] [facility] routine (chief complaint) Encounter for suprvsn of normal , first trimesterLes s than 8 weeks gestation of 8 [facility]. [address], [place], [place], [address], [place]. tel:[phone] [facility], [address], [place], [place], [address] , [place] tel: [phone] [facility] Encounter for test, result positiveAmen orrhea, unspecified No Information Referring Provider: Registered Nurse, [address], [place], [address]. tel:[phone] OFFICE OUTPT EST 25 MIN [facility], [address], [place], [place], [address] , [place] tel: [phone] [facility] depo shot (chief complaint) Contraceptiv e surveillance , unspecified 5 No Information OFFICE/OUTPATI ENT VISIT, EST [facility], [address], [place], [place], [address] , [place] tel: [phone] [facility] depo shot (chief complaint) Surveillance of intrauterine contraceptiv e deviceObesit y 4 Arlene Pope. [address], [place], [place], [address], [place]. tel:[phone] Referring Provider: Niko Yepez, [address], [place], [address]. tel:[phone] OFFICE/OUTPATI ENT VISIT, EST [facility], [address], [place], [place], [address] , [place] tel: [phone] [facility] check up (chief complaint) ROUT POSTPART FOLLOW-UP 4 Arlene Pope. [address], [place], [place], [address], [place]. tel:[phone] Referring Provider: Niko Yepez, [address], [place], [address]. tel:[phone] [facility], [address], [place], [place], [address] , [place] tel: [phone] [facility] PP home visit (chief complaint) No Information Management Case. [address], [place], [place], [address], [place]. tel:[phone] [facility], [address], [place], [place], [address] , [place] tel: [phone] [facility] No Information Management Case. [address], [place], [place], [address], [place]. tel:[phone] HOSPITAL DISCHARGE DAY MANAGEMENT; 30 MINUTES OR LESS [facility], [address], [place], [place], [address] , [place] tel: [phone] [facility] No Information 4 Tepe Chastity. [address], [place], [place], [address], [place]. tel:[phone] OFFICE/OUTPATI ENT VISIT, EST [facility], [address], [place], [place], [address] , [place] tel: [phone] [facility] routine (chief complaint) Supervision of other normal 4 Arlene Pope. [address], [place], [place], [address], [place]. tel:[phone] Referring Provider: Niko Yepez, [address], [place], [address]. tel:[phone] OFFICE/OUTPATI ENT VISIT, EST [facility], [address], [place], [place], [address] , [place] tel: [phone] [facility] routine (chief complaint) Supervision of other normal 9 4 Arlene Pope. [address], [place], [place], [address], [place]. tel:[phone] Referring Provider: Niko Yepez, [address], [place], [address]. tel:[phone] OFFICE/OUTPATI ENT VISIT, EST [facility], [address], [place], [place], [address] , [place] tel: [phone] [facility] routine (chief complaint) Supervision of other normal 3 4 Arlene Pope. [address], [place], [place], [address], [place]. tel:[phone] Referring Provider: Niko Yepez, [address], [place], [address]. tel:[phone] OFFICE/OUTPATI ENT VISIT, EST [facility], [address], [place], [place], [address] , [place] tel: [phone] [facility] Follow Up of OB (chief complaint) Supervision of other normal 4 Arlene Pope. [address], [place], [place], [address], [place]. tel:[phone] Referring Provider: Niko Yepez, [address], [place], [address]. tel:[phone] OFFICE/OUTPATI ENT VISIT, EST [facility], [address], [place], [place], [address] , [place] tel: [phone] [facility] routine centering group (chief complaint) Supervision of other normal 4 Arlene Pope. [address], [place], [place], [address], [place]. tel:[phone] Referring Provider: Niko Yepez, [address], [place], [address]. tel:[phone] OFFICE/OUTPATI ENT VISIT, EST [facility], [address], [place], [place], [address] , [place] tel: [phone] [facility] OB centering (chief complaint) Supervision of other normal 4 rAlene Pope. [address], [place], [place], [address], [place]. tel:[phone] Referring Provider: Niko Yepez, [address], [place], [address]. tel:[phone] OFFICE/OUTPATI ENT VISIT, EST [facility], [address], [place], [place], [address] , [place] tel: [phone] [facility] centereing (chief complaint) PREG STATE, INCIDENTAL 4 Arlene Pope. [address], [place], [place], [address], [place]. tel:[phone] Referring Provider: Niko Yepez, [address], [place], [place], [address] [place] [address]. tel: [phone] [facility], [address], [place], [place], [address] [place] [address] , tel: [phone] [facility] No Information March-1 2-201 4 Arlene Pope. [address], [place], [address] [place] [address], [place]. tel:[phone] OFFICE/OUTPATI ENT VISIT, EST [facility], [address], [place], [address] [place] [address] , tel: [phone] [facility] No Information March-0 8-201 4 Arlene Pope. [address], [place], [address] [place] [address], [place]. tel:[phone] Referring Provider: Niko Yepez, [address], [place], [address] [place] [address]. tel:[phone] OFFICE/OUTPATI ENT VISIT, EST [facility], [address], [place], [address] [place] [address] , tel: [phone] [facility] No Information Feb-2 4-201 4 Arlene Pope. [address], [place], [address] [place] [address], [place]. tel:[phone] Referring Provider: Niko Yepez, [address], [place], [address] [place] [address]. tel:[phone] OFFICE/OUTPATI ENT VISIT, EST [facility], [address], [place], [address] [place] [address] , tel: [phone] [facility] No Information Feb-1 0-201 4 Arlene Pope. [address], [place], [address] [place] [address], . tel:[phone] Referring Provider: Niko Yepez, [address], [place], [address] [place] [address]. tel:[phone] [facility], [address], [place], [place], [address] , tel: [phone] [facility] No Information Feb-0 4 No Information [facility], [address], [place], [place], [address] , tel: [phone] [facility] No Information Jan- 4 Arlene Pope. [address], [place], [address] [place] [address], . tel:[phone] Consulting Provider: Hayley Astorga, [address], [place], [address]. tel:[phone] [facility], [address], [place], [address] [place] [address] , tel: [phone] [facility] No Information 4 Management Case. [address], [place], [address] [place] [address], . tel:[phone] Consulting Provider: Hayley Astorga, [address], [place], [address]. tel:[phone] OFFICE/OUTPATI ENT VISIT, EST [facility], [address], [place], [address] [place] [address] , tel: [phone] [facility] No Information 4 Arlene Pope. [address], [place], [place], [address], . tel:[phone] Referring Provider: Niko Yepez, [address], [place], [address]. tel:[phone] OFFICE/OUTPATI ENT VISIT, EST [facility], [address], [place], [address] [place] [address] , tel: [phone] [facility] Screening examination for pulmonary tuberculosis 4 Arlene Pope. [address], [place], [place], [address], . tel:[phone] Referring Provider: Niko Yepez, [address], [place], [address]. tel:[phone] [facility], [address], [place], [place], [address] , tel: [phone] [facility] No Information 4 No Information OFFICE OUTPT EST 25 MIN [facility], [address], [place], [address] [place] [address] , tel: [phone] [facility] Supervision of other normal 4 Arlene Pope. [address], [place], [place], [address], [place]. tel:[phone] Referring Provider: Niko Yepez, [address], [place], [address]. tel:[phone] [facility], [address], [place], [place], [address] , tel: [phone] [facility] Supervision of other normal 3 Arlene Pope. [address], [place], [place], [address], [place]. tel:[phone] [facility], [address], [place], [place], [address] , tel: [phone] [facility] Dental examination 3 No Information [facility], [address], [place], [place], [address] , [place] tel: [phone] [facility] No Information 3 Arlene Pope. [address], [place], [place], [address], [place]. tel:[phone] OFFICE/OUTPATI ENT VISIT, EST [facility], [address], [place], [place], [address] , tel: [phone] [facility] Generic (chief complaint) Routine follow-up 3 Yuliet Flores. [address], [place], [place], [address], [place]. tel:[phone] OFFICE/OUTPATI ENT VISIT, EST [facility], [address], [place], [place], [address] , [place] tel: [phone] [facility] Generic (chief complaint) Routine follow-up 3 Yuliet Flores. [address], [place], [place], [address], [place]. tel:[phone] [facility], [address], [place], [place], [address] , [place] tel: [phone] [facility] Home Visit (chief complaint) Routine follow-up 3 Management Case. [address], [place], [place], [address], [place]. tel:[phone] Consulting Provider: Hayley Astorga, [address], [place], [address]. tel:[phone] HOSPITAL DISCHARGE DAY MANAGEMENT; 30 MINUTES OR LESS [facility], [address], [place], [place], [address] , [place] tel: [phone] [facility] No Information 3 Sonia Haywood. [address], [place], [place], [address], [place]. [phone] [facility] 15 MIN [facility], [address], [place], [place], [address] , [place] tel: [phone] [facility] No Information 3 No Information [facility], [address], [place], [place], [address] , [place] tel: [phone] [facility] No Information 3 No Information OFFICE/OUTPATI ENT VISIT, EST [facility], [address], [place], [place], [address] , [place] tel: [phone] [facility] No Information 3 Schiefelbei n Sandra. [address], [place], [place], [address], [place]. tel:[phone] OFFICE/OUTPATI ENT VISIT, EST [facility], [address], [place], [place], [address] , [place] tel: [phone] [facility] No Information 2 Schiefelbei n Sandra. [address], [place], [place], [address], [place]. tel:[phone] OFFICE/OUTPATI ENT VISIT, EST [facility], [address], [place], [place], [address] , [place] tel: [phone] [facility] No Information 2 Schiefelbei n Sandra. [address], [place], [place], [address], [place]. tel:[phone] [facility], [address], [place], [place], [address] , [place] tel:[phone] [facility] Elevated liver enzymes 2 Schiefelbei n Sandra. [address], [place], [place], [address], [place]. tel:[phone] OFFICE/OUTPATI ENT VISIT, EST [facility], [address], [place], [place], [address] , [place] tel: [phone] [facility] No Information 2 Schiefelbei n Sandra. [address], [place], [place], [address], [place]. tel:[phone] OFFICE/OUTPATI ENT VISIT, EST [facility], [address], [place], [place], [address] , [place] tel: [phone] [facility] No Information 2 Schiefelbei n Sandra. [address], [place], [place], [address], [place]. tel:[phone] OFFICE/OUTPATI ENT VISIT, EST [facility], [address], [place], [place], [address] , [place] tel: [phone] [facility] No Information 0 5-201 2 Schiefelbei n Sandra. [address], [place], [place], [address], [place]. tel:[phone] OFFICE/OUTPATI ENT VISIT, EST [facility], [address], [place], [place], [address] , [place] tel: [phone] [facility] No Information 0 8 2 Schiefelbei n Sandra. [address], [place], [place], [address], [place]. tel:[phone] [facility], [address], [place], [place], [address] , [place] tel: [phone] [facility] No Information 0 8 2 Schiefelbei n Sandra. [address], [place], [place], [address], [place]. tel:[phone] OFFICE/OUTPATI ENT VISIT, EST [facility], [address], [place], [place], [address] , [place] tel:[phone] [facility] No Information 2 4 2 Schiefelbei n Sandra. [address], [place], [place], [address], [place]. tel:[phone] OFFICE/OUTPATI ENT VISIT, EST [facility], [address], [place], [place], [address] , [place] tel: [phone] [facility] Routine infant or child health check Sep- 0-201 2 Schiefelbei n Sandra. [address], [place], [place], [address], [place]. tel:[phone] OFFICE/OUTPATI ENT VISIT, EST [facility], [address], [place], [place], [address] , [place] tel: [phone] [facility] No Information Aug-1 3-201 2 Schiefelbei n Sandra. [address], [place], [place], [address], [place]. tel:[phone] OFFICE/OUTPATI ENT VISIT, EST [facility], [address], [place], [place], [address] , [place] tel: [phone] [facility] No Information 2 Yuliet Flores. [address], [place], [place], [address], [place]. tel:[phone] OFFICE/OUTPATI ENT VISIT, EST [facility], [address], [place], [place], [address] , [place] tel: [phone] [facility] Supervision of other normal 2 Yuliet Flores. [address], [place], [place], [address], [place]. tel:[phone] [facility], [address], [place], [place], [address] , [place] tel: [phone] [facility] PN INTAKE (chief complaint) Supervision of other normal pregnancySup ervision of other normal 2 Management Case. [address], [place], [place], [address], [place]. tel:[phone] [facility], [address], [place], [place], [address] , [place] tel: [phone] [facility] No Information 2 Arlene Pope. [address], [place], [place], [address], [place]. tel:[phone] [facility], [address], [place], [place], [address] , [place] tel: [phone] [facility] examination or test, unconfirmed 2 Jois Murphy. [address], [place], [place], [address], [place]. tel:[phone] OFFICE/OUTPATI ENT VISIT, EST [facility], [address], [place], [place], [address] , [place] tel: [phone] [facility] implanon removal (chief complaint) Surveillance of other contraceptiv e methodSurvei llance of implantable subdermal contraceptiv eNeed for prophylactic vaccination and inoculation, other viral diseases 2 No Information [facility], [address], [place], [place], [address] , [place] tel: [phone] [facility] No Information 1 No Information [facility], [address], [place], [place], [address] , [place] tel: [phone] [facility] implanon insertion (chief complaint) Insertion of implantable subdermal contraceptiv e 0 0 No Information OFFICE/OUTPATI ENT VISIT, EST [facility], [address], [place], [place], [address] , [place] tel: [phone] [facility] depo provera injection (chief complaint) Surveillance of other contraceptiv e method 0 No Information OFFICE/OUTPATI ENT VISIT, EST [facility], [address], [place], [place], [address] , [place] tel: [phone] [facility] IUD check (chief complaint) Surveillance of intrauterine contraceptiv e device 0 Yuliet Flores. [address], [place], [place], [address], [place]. tel: [phone] OFFICE/OUTPATI ENT VISIT, EST [facility], [address], [place], [place], [address] , [place] tel: [phone] [facility] lab results (chief complaint) Other specified chlamydial diseases 3200 9 Yuliet Flores. [address], [place], [place], [address], [place]. tel:[phone] OFFICE OUTPT EST 25 MIN [facility], [address], [place], [place], [address] , [place] tel: [phone] [facility] iud placement (chief complaint) Insertion of intrauterine contraceptiv e device 9 Yuliet Flores. [address], [place], [place], [address], [place]. tel:[phone] OFFICE OUTPT EST 10 MIN [facility], [address], [place], [place], [address] , [place] tel: [phone] [facility] needs depo (chief complaint) No Information 9 No Information [facility], [address], [place], [place], [address] , [place] tel: [phone] Historic Immunization Location No Information 9 No Information OFFICE OUTPT EST 10 MIN [facility], [address], [place], [place], [address] , [place] tel: [phone] [facility] Other venereal diseases due to chlamydia trachomatis, lower genitourinar y sitesSurveil beverly of other contraceptiv e method 9 No Information OFFICE OUTPT EST 10 MIN [facility], [address], [place], [place], [address] , [place] tel: [phone] [facility] CONTRACEPT SURVEILL NEC 9 No Information OFFICE OUTPT EST 10 MIN [facility], [address], [place], [place], [address] , [place] tel: [phone] [facility] VACCN/INOC VIRAL DIS NECOTH VD CHLM TRCH LOWR 9 No Information OFFICE/OUTPATI ENT VISIT, EST [facility], [address], [place], [place], [address] , [place] tel: [phone] [facility] OTH SPCF CHLAMYDIAL INFC 9 No Information 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 [address], [place], [place], [address]. tel:[phone] OFFICE CONSULT, 15 MIN, 3 HANDLEY COMPS: PROB FOCUS HX; PROB FOCUS EXAM; STRTFWD [facility], [address], [place], [place], [address] , [place] tel: [phone] [facility] COUNSELING NOS 0- 8 No Information OFFICE CONSULT, 15 MIN, 3 HANDLEY COMPS: PROB FOCUS HX; PROB FOCUS EXAM; STRTFWD [facility], [address], [place], [place], [address] , [place] tel: [phone] [facility] COUNSELING NOS -200 8 No Information OFFICE OUTPT EST 10 MIN [facility], [address], [place], [place], [address] , [place] tel: [phone] [facility] SUPERVIS NORMAL 1ST PREG Nov- 5 8 No Information OFFICE OUTPT EST 10 MIN [facility], [address], [place], [place], [address] , [place] tel: [phone] [facility] SUPERVIS NORMAL 1ST PREG 8 No Information OFFICE CONSULT, 15 MIN, 3 HANDLEY COMPS: PROB FOCUS HX; PROB FOCUS EXAM; STRTFWD [facility], [address], [place], [place], [address] , [place] tel: [phone] [facility] COUNSELING NOS 8 No Information OFFICE OUTPT EST 10 MIN [facility], [address], [place], [place], [address] , [place] tel: [phone] [facility] SUPERVIS NORMAL 1ST PREG 8 No Information [facility], [address], [place], [place], [address] , [place] tel: [phone] [facility] PREG STATE, INCIDENTAL 0 8 No Information OFFICE OUTPT EST 10 MIN [facility], [address], [place], [place], [address] , [place] tel: [phone] [facility] SUPERVIS NORMAL 1ST PREG Aug-0 9200 8 No Information OFFICE OUTPT EST 10 MIN [facility], [address], [place], [place], [address] , [place] tel: [phone] [facility] SUPERVIS NORMAL 1ST PREG Sep-2 5-200 8 No Information OFFICE CONSULT, 15 MIN, 3 HANDLEY COMPS: PROB FOCUS HX; PROB FOCUS EXAM; STRTFWD [facility], [address], [place], [place], [address] , [place] tel: [phone] [facility] COUNSELING NOS Jul-0 2 8 No Information OFFICE OUTPT EST 10 MIN [facility], [address], [place], [place], [address] , [place] tel: [phone] [facility] SUPERVIS NORMAL 1ST PREG Jun- 8 No Information [facility], [address], [place], [place], [address] , [place] tel: [phone] [facility] PREG STATE, INCIDENTAL Jun- 8 No Information OFFICE OUTPT EST 10 MIN [facility], [address], [place], [place], [address] , [place] tel: [phone] [facility] SUPERVIS NORMAL 1ST PREG Jun-0 8 No Information OFFICE CONSULT, 15 MIN, 3 HANDLEY COMPS: PROB FOCUS HX; PROB FOCUS EXAM; STRTFWD [facility], [address], [place], [place], [address] , [place] tel: [phone] [facility] COUNSELING NOS 8 No Information [facility], [address], [place], [place], [address] , [place] tel: [phone] [facility] PREG STATE, INCIDENTAL 8 Rizwan Hardy. [address], [place], [place], [address]. tel:[phone] OFFICE CONSULT, 15 MIN, 3 HANDLEY COMPS: PROB FOCUS HX; PROB FOCUS EXAM; STRTFWD [facility], [address], [place], [place], [address] , [place] tel: [phone] [facility] COUNSELING NOS - 8 No Information OFFICE OUTPT EST 10 MIN [facility], [address], [place], [place], [address] , [place] tel: [phone] [facility] SUPERVIS NORMAL 1ST PREG 7 8 No Information [facility], [address], [place], [place], [address] , [place] tel: [phone] [facility] PREG STATE, INCIDENTAL 8 No Information OFFICE OUTPT EST 10 MIN [facility], [address], [place], [place], [address] , [place] tel: [phone] [facility] SUPERVIS NORMAL 1ST PREG 8 No Information OFFICE CONSULT, 15 MIN, 3 HANDLEY COMPS: PROB FOCUS HX; PROB FOCUS EXAM; STRTFWD [facility], [address], [place], [place], [address] , [place] tel: [phone] [facility] COUNSELING NOS 8 No Information OFFICE OUTPT EST 25 MIN [facility], [address], [place], [place], [address] , [place] tel: [phone] [facility] SUPERVIS NORMAL 1ST PREG 8 No Information OFFICE CONSULT, 15 MIN, 3 HANDLEY COMPS: PROB FOCUS HX; PROB FOCUS EXAM; STRTFWD [facility], [address], [place], [place], [address] , [place] tel: [phone] [facility] COUNSELING NOS 8 No Information [facility], [address], [place], [place], [address] , [place] tel: [phone] [facility] PREG STATE, INCIDENTAL 8 Rizwan Hardy. [address], [place], [place], [address]. [phone] [facility], [address], [place], [place], [address] , [place] tel:[phone] [facility] PREG STATE, INCIDENTAL Apr-3 0-200 8 Rizwan Hardy. [address], [place], [place], [address]. tel:[phone] [facility], [address], [place], [place], [address] , [place] tel: [phone] [facility] PREG STATE, INCIDENTAL Apr-2 9-200 8 Rizwan Hardy. [address], [place], [place], [address]. tel:[phone] OFFICE OUTPT EST 10 MIN [facility], [address], [place], [place], [address] , [place] tel: [phone] [facility] SUPERVIS NORMAL 1ST PREG Apr- 6200 8 No Information OFFICE CONSULT, 15 MIN, 3 HANDLEY COMPS: PROB FOCUS HX; PROB FOCUS EXAM; STRTFWD [facility], [address], [place], [place], [address] , [place] tel: [phone] [facility] COUNSELING NOS Apr- 6200 8 No Information [facility], [address], [place], [place], [address] , [place] tel: [phone] [facility] PREG STATE, INCIDENTAL Apr-1 6-200 8 Rizwan Hardy. [address], [place], [place], [address]. tel:[phone] OFFICE OUTPT NEW 10 MIN [facility], [address], [place], [place], [address] , [place] tel: [phone] [facility] ABSENCE OF MENSTRUATION Apr- 4-200 8 Ericiefelbekenya Flores. [address], [place], [place], [address], [place]. [phone] Family History Family Member Type Diagnosis Age At Onset No Information Immunizations Vaccine Date Status Comments Adacel/Boostrix (Tdap) administered [facility] e: New Immunization Record 4 years [...] Record Payers Payer name Insurance type Covered alliance party ID Authoriza tion(s) [facility] [id number] Medicaid - Medical [id number] Social History Type Description Quantity Date Captured Comments Alcohol Use Details No Caffeine Use Details No Tobacco Use Status No Information Smoking Status Never smoker Sex Female Sexual Orientation Straight or heterosexual Nov Gender Identity Female Chief Complaint And Reason For Visit No Information Reason For Referral Reason For Referral No Information Plan Of Treatment Date Type Action Status Goal HPV (3rd). Due on 9 due Goal HPV (2nd) due Goal AST. Due on due Goal ALT. Due on due Goal ALT. Due on [...] on due Goal HPV (3rd). Due on due Goal ALT. Due on due Goal HPV (2nd) due Goal HPV (3rd). Due on due Goal AST. Due on due Goal AST. Due on due Goal HPV (2nd) due Goal ALT. Due on due Goal HPV (3rd). Due on due Goal HPV (3rd). Due on due Goal ALT. Due on due Goal HPV (2nd) due Goal AST. Due on due Goal HPV (2nd) due Goal AST. Due on due Goal ALT. Due on due Goal HPV (3rd). Due on due Goal AST. Due on [...] due Goal H&P. Due on due Goal Urinalysis. Due on [...] Goal BMP fasting. Due on due Goal BMP fasting. Due [...] Due on 9 due Referral Referred To: [facility] O[facility] Ultrasounds [address], [place], [phone] Ordered: Referrals: Radiology. [facility] OBN Ultrasounds. Diagnostic testing Appointment date/timeframe: 11/06/2018 ordered Referral Referred To: Rosmery Beaver [address] [place], [place], [address] Ordered: Referral: Rosmery Beaver. Behavioral Health. ordered Referral Referred To: [facility] O[facility] Ultrasounds [address], [place], [phone] Ordered: Referral: [facility] Ultrasounds. Radiology. ordered Referral [facility]erred [facility]: [facility] Ordered: Referral: [facility]. Obstetrics/Enterprise Mobility Architect. ordered Referral Referred To: [facility] Ultrasounds [address], [place], [phone] Ordered: Referral: [facility] Ultrasounds. Obstetrics/Enterprise Mobility Architect. Evaluate and treat. ordered Future Order: Lab Order Bile Aci ds, Fractionated and Total, ([id number]), Appointment on: , Sent on: Sent Future Order: Lab Order COMPREHE NSIVE METABOLIC PANEL W/EGFR ([id number]), Appointment on: , Sent on: Sent Future Order: Lab Order CBC (H/H , RBC, INDICES, WBC, PLT) ([id number]), Appointment on: , Sent on: Sent Future [...] provera contraceptionNo headache, depression, significant vaginal bleeding.Exam: comfortable--[id number] history: No other new drug allergies nor problems since last visit. Patient is taking medications as prescribed here without problems except as noted above.Medications are reconciled from any interval medical encounters elsewhere.ASSESSMENTS [details] / PLANS (see also medication and order details)ACTIVE PROBLEMS> Breast-feeding>>> Anemia , resolvedObesity / guidance on physical activity & nutrition given .fertility: Depo-Provera, due [id number] prev: 10y risk = %. lifetime risk [...] visit >PROFILE relationship: ed/occupation: dwelling: stressors: childbirth [id number]: insurance: pharmacy: contact: SALIENT PAST Hxdrug allergy: [...] nutrition given .fertility: Depo-Provera begun , due [id number] prev: 10y risk = %. lifetime risk [...] visit >PROFILE relationship: ed/occupation: dwelling: stressors: childbirth [id number]: insurance: pharmacy: contact: SAL[facility] PAST Hxdrug allergy: [...] Information Instructions Date Instruction Additional Infor mando increase fruits and veggies in diet, fiber Related to Encounter for routine follow-up Prescribed activity/ exercise education Related to Body mass index (BMI) 31.0-31.9, adult drink plenty of water Related to Encounter for routine follow-up drink plenty of water Related to Encounter [...] to patient. Related to Contraceptive surveillance, unspecified Reversible methods o f contraception discussed with patient. Related to Contraceptive surveillance, unspecified Safe sexual practice s discussed with patient. Related to Contraceptive surveillance, unspecified Increase physical activity. Rela tamika to Contraceptive surveillance, unspecified Assessments Type Assessment Date No Information Patient Care Teams Name Effective Dates (start - stop) Status Members No Information
== END 2025-03-31 18:14 | disposition left against medical advice (07) ==
LOC: ANHED 19:31
PROVIDERS: PCP Physician Assistant
DX: R51.9 Headache, unspecified (principal)
CPT/HCPCS: 99199

== ENCOUNTER 2025-04-02 09:18 | Emergency (ER) | payer SELFPAY ==
--- NOTE | ~2025-04-02 | CT_ITS ---
EXAMINATION: CT abdomen pelvis w con DATE: 04/02/2025 10:16 INDICATION: Left lower quadrant pain TECHNIQUE: Computed tomography (CT) of the abdomen and pelvis was performed with 100 cc Omnipaque 350 intravenous contrast. The dose-length product was 569.07 mGy-cm. Automated exposure control and iter ative reconstruction technique were employed. COMPARISON: None. FINDINGS: There is dependent atelectasis. Heart size normal. 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 Fatty infiltration of the liver. The spleen, pancreas, adrenal glands are un remarkable. There is hypovascularity of the left kidney at the lower pole, suspicious for pyelonephri tis. There are subtle areas of hypovascularity in the right kidney. Nonobstructive bowel gas pattern. Colonic diverticulosis without evidence for diverticulitis. No acute osseous abnormality. No signifi cant pleural or pericardial effusion. IMPRESSION: 1. Patchy areas of decreased perfusion of the kidneys, most prominent in the lower pole of the left k idney, suspicious for pyelonephritis. Reviewed, dictated and finalized at location A. IMPRESSION: 1. Patchy areas of decreased perfusion of the kidneys, most prominent in the lo wer pole of the left kidney, suspicious for pyelonephritis.
--- OUTSIDE RECORDS SUMMARY | 2025-04-02 09:21 | XMS_ITS | Referral Summary ---
Author Organization [facility] Address [address] [place] [address] Care Team Providers Care Inner Diameter Grinder Tool Name Role Phone Rosmery Mckeon Primary Care [...] PM CDT Legal Sex Female 3:26 AM INFORMATION DELIVERY ANALYST Gender Identity Female 03/04/2023 2:13 PM CDT Sexual Orientation Straight 03/04/2023 2: 13 PM CDT Last Filed Vital Signs Vital Sign Reading Time Taken Comments Blood Pressure 114/71 10/04/2024 8:26 PM INFORMATION DELIVERY ANALYST Pulse 60 10/04/2024 8:26 PM INFORMATION DELIVERY ANALYST Temperature 36.6 C (97.9 F) 10/04/2024 5:57 PM INFORMATION DELIVERY ANALYST Respiratory Rate 16 10/04/2024 8:26 PM INFORMATION DELIVERY ANALYST Oxygen Saturation 100% 10/04/2024 8:26 PM INFORMATION DELIVERY ANALYST Inhaled Oxygen Concentration - - Weight 87.1 kg (192 lb) 03/04/2023 2:08 PM CDT Height 152.4 cm (5') 03/04/2023 2:08 PM CDT Body Mass Index 37.5 03/04/2023 2:08 PM CDT Plan of Treatment Not on file Insurance [facility] Advance Directives For more information, please contact: [phone] * Full Code (Latest Code Status on File) Date Activated Date Inactivated Comments 02/17/2019 11:00 AM 02/20/2019 6:51 PM * Full Code Date Activated Date Inactivated Comments 02/17/2019 3:19 AM 02/17/2019 11:00 AM Full CPR in case of cardiopulmonary arrest Care Teams Inner Diameter Grinder Tool Relationship Specialty Start Date End Date Rosmery Mckeon PA PCP - General Physician Aoc Plans Intelligence Officer 10/04/24
--- OUTSIDE RECORDS SUMMARY | 2025-04-02 09:21 | XMS_ITS | Clinical Summary ---
Author Organization [facility] Address [address] [place] [address] Care Team Providers Care Precision Honing Machine Operator Name Role Phone Rosmery Mckeon Primary Care [...] PM CDT Legal Sex Female 3:26 AM SLUICE TENDER Gender Identity Female 03/04/2023 2:13 PM CDT [...] TOM BLACK ,Venus Diego MD Complications:None Delivery Location:[facility] Main C ampus ([facility]LD) 2018 Term 37w 5d 0h 01m 0h 01m 3.08 kg (6 lb 12.6 oz) M CS-LT ranv Spinal N Livin g 8 9 SANCH YADIRA VARGAS Meliss a Dawn, MD Complications:None Delivery Location:[facility] Main C ampus ([facility]) Last Filed Vital Signs Vital Sign Reading Time Taken Comments Blood Pressure 114/71 10/04/2024 8:26 PM SLUICE TENDER Pulse 60 10/04/2024 8:26 PM SLUICE TENDER Temperature 36.6 C (97.9 F) 10/04/2024 5:57 PM SLUICE TENDER Respiratory Rate 16 10/04/2024 8:26 PM SLUICE TENDER Oxygen Saturation 100% 10/04/2024 8:26 PM SLUICE TENDER Inhaled Oxygen Concentration - - Weight 87.1 [...] patient's age to complete this topic Insurance [facility] Advance Directives For more information, please contact: [phone] * Full Code (Latest Code Status on File) Date Activated Date Inactivated Comments 02/17/2019 11:00 AM 02/20/2019 6:51 PM * Full Code Date Activated Date Inactivated Comments 02/17/2019 3:19 AM 02/17/2019 11:00 AM Full CPR in case of cardiopulmonary arrest Care Teams Precision Honing Machine Operator Relationship Specialty Start Date End Date Rosmery Mckeon PA PCP - General Physician Mining Technician 10/04/24
--- OUTSIDE RECORDS SUMMARY | 2025-04-02 09:21 | XMS_ITS | Continuity of Care Document ---
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 Name Role Phone Zoey DMD, Nitin Unavailable [...] and/or drug screening 9 [facility] PA D 15 MIN [facility] PA D 15 MIN DELIVERY ONLY INSERTION, NON-BIODEGRADABLE [...] Voided Encounter HOSPITAL DISCHARGE DAY MANAGEMENT; 30 SC NUTES OR LESS OFFICE/OUTPATIENT VISIT, EST OFFICE/OUTPATIENT [...] [facility], AT-RISK ENHANCED SERVICE PACKAGE (INCLUDES [id number]) OFFICE/OUTPATIENT VISIT, EST SKIN TEST; TUBERCULOSIS, INTRADERMAL [...] NON-PHYSICI AN HOSPITAL DISCHARGE DAY MANAGEMENT; 30 SC NUTES OR LESS [facility] PA D 15 MIN VAGINAL DELIVERY ONLY (WITH [...] 1 GRAM CHYLMD TRACH, DNA, AMP PROBE CYTP C/V AUTO THIN LYR PREPJ SCR MNL RES CR PHYS Injection, medroxyprogesterone acetate ( Depo-Provera), 150 mg COLLECTION OF VENOUS BLOOD BY VENIPUNCTU RE PERIODIC COMPREHENSIVE PREVENTIVE MED RE E/M; ESTABLISHED PATIENT; 10-19 BLOOD COUNT; HEMATOCRIT (HCT) 8 N.GONORRHOEAE, DNA, AMP PROB CM- Woman - Month with Face to F herminio Visit OFFICE CONSULT, 15 MIN, 3 KE Y COMPS: PROB FOCUS HX; PROB FOCUS EXAM; STRTFWD OFFICE CONSULT, 15 MIN, 3 KE Y COMPS: PROB FOCUS HX; PROB FOCUS EXAM; [facility] OFFICE OUTPT EST 10 MIN URNLS DIP STICK/TABLET RGNT AUTO W/O TONY CULTURE, BACTERIAL; QUANTITATIVE COLONY COUNT, URINE URNLS DIP STICK/TABLET RGNT AUTO W/O TONY OFFICE OUTPT EST 10 MIN OFFICE CONSULT, 15 MIN, 3 KE Y COMPS: PROB FOCUS HX; PROB FOCUS EXAM; [facility] URNLS DIP STICK/TABLET RGNT AUTO W/O [...] COMPS: PROB FOCUS HX; PROB FOCUS EXAM; [facility] OFFICE OUTPT EST 10 MIN URNLS DIP STICK/TABLET RGNT AUTO W/O TONY CM- Woman - Month with No Face t o Face Visit COLLECTION OF VENOUS BLOOD BY VENIPUNCTU RE CHYLMD TRACH, DNA, AMP PROBE CULTURE, BACTERIAL; QUANTITATIVE COLONY COUNT, URINE BLOOD COUNT; COMPLETE (CBC), AUTOMATED (HGB, HCT, RBC, WBC AND PLATELET COUNT) URNLS DIP STICK/TABLET RGNT AUTO W/O TONY GLUCOSE; POST GLUCOSE DOSE (INCLUDES GLU COSE) N.GONORRHOEAE, DNA, AMP PROB OFFICE OUTPT EST 10 MIN OFFICE CONSULT, 15 MIN, 3 KE Y COMPS: PROB FOCUS HX; PROB FOCUS EXAM; [facility] CM- Woman - Month with Face to F herminio Visit OFFICE CONSULT, 15 MIN, 3 KE Y COMPS: PROB FOCUS HX; PROB FOCUS EXAM; [facility] OFFICE OUTPT EST 10 MIN URNLS DIP STICK/TABLET RGNT AUTO W/O TONY CM- Woman - Month with No Face t o Face Visit OFFICE OUTPT EST 10 MIN URNLS DIP STICK/TABLET RGNT AUTO W/O TONY OFFICE CONSULT, 15 MIN, 3 KE Y COMPS: PROB FOCUS HX; PROB FOCUS EXAM; [facility] N.GONORRHOEAE, DNA, AMP PROB CHYLMD TRACH, DNA, AMP PROBE URNLS DIP STICK/TABLET RGNT AUTO W/O TONY CYTP C/V AUTO THIN LYR PREPJ SCR MNL RES CR PHYS AZITHROMYCIN DIHYDRATE, ORAL, CAPSULES/P OWDER, 1 GRAM SMEAR, WET MOUNT, SALINE/INK OFFICE OUTPT EST 25 MIN OFFICE CONSULT, 15 MIN, 3 KE Y COMPS: PROB FOCUS HX; PROB FOCUS EXAM; [facility] CM- Woman - Month with Face to F herminio Visit CM- Woman - Month with No Face t o Face Visit CM- Woman - Month with No Face t o Face Visit CULTURE, BACTERIAL; QUANTITATIVE COLONY COUNT, URINE CHYLMD TRACH, DNA, AMP PROBE OB PANEL N.GONORRHOEAE, DNA, AMP PROB OFFICE OUTPT EST 10 MIN HEPATITIS C ANTIBODY; URNLS DIP STICK/TABLET RGNT AUTO W/O TONY LEAD SKIN TEST; TUBERCULOSIS, INTRADERMAL Feb ANTIBODY; HIV-1 AND HIV-2, SINGLE ASSAY CALCIFEDIOL (25-OH VITAMIN D-3) 008 COLLECTION OF VENOUS BLOOD BY VENIPUNCTU RE HEMOGLOBIN ELECTROPHORESIS OFFICE CONSULT, 15 MIN, 3 KE Y COMPS: PROB FOCUS HX; PROB FOCUS EXAM; STRTFWD care, at-risk assessment care, at-risk enhanced service; antepartum management OFFICE OUTPT NEW 10 MIN URINE TEST, BY VISUAL COLOR CO MPARISON METHODS Advance Directives Directive Yes / No Effective Date File Name No Information Encounters Encounter Description Practice Location Reason(s) For Visit Diagnoses Date Provider Providers Copied on Encounter [facility], [address], [place], [place], [address] , tel: [phone] [facility] caries on pit and fissure surface penetrat into pulpEncounte r for dental exam and cleaning w abnormal findings 0 Zoey Taveras. [address], [place], [place], [address]. tel:[phone] OFFICE/OUTPATI ENT VISIT, EST [email or web address], [address], [place], [place], [address] , tel: [phone] [facility] 6wk pp (chief complaint) Body mass index (BMI) 31.0-31.9, adultEncount er for routine follow-upCer vical high risk HPV DNA test positiveEnco unter for screening for other disorder 0-201 9 No Information OFFICE/OUTPATI ENT VISIT, EST [facility], [address], [place], [place], [address] , tel: [phone] [facility] 2wk pp (chief complaint) Body mass index (BMI) 30.0-30.9, adultEncount er for routine follow-upEnc ounter for checking, reinsertion or removal of implantable subdermal contraceptiv eAbnormal Pap smear of cervixEncoun ter for screening for other disorder No Information [facility] D 15 MIN [facility], [address], [place], [place], [address] , [place] tel: [phone] [facility] No Information Karina Monte. [address], [place], [place], [address], [place]. tel:[phone] Referring Provider: Mell Collins, [address], [place], [address]. tel:[phone] [facility] PA D 15 MIN [facility], [address], [place], [place], [address] , [place] tel: [phone] [facility] No Information No Information [facility], [address], [place], [place], [address] , [place] tel: [phone] [facility] Underachieve ment in schoolUnechristus [facility] oent, unspecified Management Case. [address], [place], [place], [address], [place]. tel:[phone] [facility], [address], [place], [place], [address] , [place] tel: [phone] [facility] No Information Sonia Haywood. [address], [place], [place], [address], [place]. tel:[phone] OFFICE/OUTPATI ENT VISIT, EST [facility], [address], [place], [place], [address] , [place] tel: [phone] [facility] routine (chief complaint) Supervision of high risk , third acuincdro90 weeks gestation of pregnancyEnc ounter for screening for other disorder No Information [facility], [address], [place], [place], [address] , [place] tel: [phone] [facility] No Information 9 Sonia Haywood. [address], [place], [place], [address], [place]. tel:[phone] Referring Provider: Chastity Scott, [address], [place], [address]. tel:[phone] OFFICE/OUTPATI ENT VISIT, EST [facility], [address], [place], [place], [address] , [place] tel: [phone] [facility] routine (chief complaint) Supervision of high risk , third rrnwhmqia34 weeks gestation of pregnancyEnc ounter for screening for other disorderEnco unter for suprvsn of normal , unsp trimester 9 No Information OFFICE/OUTPATI ENT VISIT, EST [facility], [address], [place], [place], [address] , [place] tel: [phone] [facility] routine (chief complaint) Supervision of high risk , third sizjvfocf20 weeks gestation of pregnancyEnc ounter for screening for other disorderEnco unter for suprvsn of normal , unsp trimester 9 No Information OFFICE/OUTPATI ENT VISIT, EST [facility], [address], [place], [place], [address] , [place] tel: [phone] [facility] routine (chief complaint) Supervision of high risk , third dtzxpvipc31 weeks gestation of pregnancyEnc ounter for screening for other disorderEnco unter for suprvsn of normal , unsp trimester 9 No Information OFFICE OUTPT EST 25 MIN [facility], [address], [place], [place], [address] , [place] tel: [phone] [facility] routine (chief complaint) Supervision of high risk , third zvsfenzjy41 weeks gestation of pregnancyEnc ounter for immunization Encounter for screening for other disorderEnco unter for suprvsn of normal , unsp trimester 9 No Information OFFICE OUTPT EST 25 MIN [facility], [address], [place], [place], [address] , [place] tel: [phone] [facility] routine (chief complaint) Supervision of high risk , 2nd aezeaohqh40 weeks gestation of pregnancyEnc ounter for screening for other disorderEnco unter for suprvsn of normal , unsp trimester 9 No Information OFFICE OUTPT EST 25 MIN [facility], [address], [place], [place], [address] , [place] tel: [phone] [facility] routine (chief complaint) Body mass index (BMI) 34.0-34.9, adultSupervi clover of high risk , 2nd iitquibzr92 weeks gestation of pregnancyEnc ounter for screening for diabetes mellitusEnco unter for screening for other rngaexcu17 weeks gestation of 9 No Information OFFICE OUTPT EST 25 MIN [facility], [address], [place], [place], [address] , [place] tel: [phone] [facility] routine (chief complaint) Supervision of high risk , 2nd weeks gestation of pregnancyEnc ounter for suprvsn of normal , first trimester 9 No Information OFFICE OUTPT EST 25 MIN [facility], [address], [place], [place], [address] , [place] tel: [phone] [facility] routine (chief complaint) Twin , dichorionic/ diamniotic, second hwopqrzpu11 weeks gestation of pregnancyEnc ounter for screening for other rlulxesl38 weeks gestation of 8 No Information OFFICE OUTPT EST 25 MIN [facility], [address], [place], [place], [address] , [place] tel: [phone] [facility] routine (chief complaint) Supervision of high risk , 2nd neezucvzr71 weeks gestation of pregnancyEnc ounter for screening for other uhmhpraf44 weeks gestation of 8 No Information OFFICE OUTPT EST 25 MIN [facility], [address], [place], [place], [address] , [place] tel: [phone] [facility] routine (chief complaint) Supervision of high risk , 1st tfooakyoe69 weeks gestation of pregnancyEnc ounter for screening for other disorderLess than 8 weeks gestation of 8 No Information OFFICE OUTPT EST 40 MIN [facility], [address], [place], [place], [address] , [place] tel: [phone] [facility] IOB (chief complaint) Supervision of high risk , 1st trimester8 weeks gestation of pregnancyEnc ounter for immunization Encounter for screening for malignant neoplasm of cervixEncoun ter for screening for other disorderEnco unter for test, result positive 8 No Information [facility], [address], [place], [place], [address] , [place] tel: [phone] [facility] No Information Sonia Haywood. [address], [place], [place], [address], [place]. tel:[phone] Referring Provider: Chastity Scott, [address], [place], [address]. tel:[phone] [facility], [address], [place], [place], [address] , [place] tel: [phone] [facility] routine (chief complaint) Encounter for suprvsn of normal , first trimesterLes s than 8 weeks gestation of 8 Management Case. [address], [place], [place], [address], [place]. tel:[phone] [facility], [address], [place], [place], [address] , [place] tel: [phone] [facility] Encounter for test, result positiveAmen orrhea, unspecified No Information Referring Provider: Registered Nurse, [address], [place], [address]. tel:[phone] OFFICE OUTPT EST 25 MIN [facility], [address], [place], [place], [address] , [place] tel: [phone] [facility] depo shot (chief complaint) Contraceptiv e surveillance , unspecified 5 No Information OFFICE/OUTPATI ENT VISIT, EST [facility], [address], [place], [place], [address] , [place] tel: [phone] [facility] depo shot (chief complaint) Surveillance of intrauterine contraceptiv e deviceObesit y 4 Arlene Pope. [address], [place], [place], [address], [place]. tel:[phone] Referring Provider: Niko Yepez, [address], [place], [address]. tel:[phone] OFFICE/OUTPATI ENT VISIT, EST [facility], [address], [place], [place], [address] , [place] tel: [phone] [facility] check up (chief complaint) ROUT POSTPART FOLLOW-UP 4 Arlene Pope. [address], [place], [place], [address], [place]. tel:[phone] Referring Provider: Niko Yepez, [address], [place], [address]. tel:[phone] [facility], [address], [place], [place], [address] , [place] tel: [phone] [facility] PP home visit (chief complaint) No Information Management Case. [address], [place], [place], [address], [place]. tel:[phone] [facility], [address], [place], [place], [address] , [place] tel: [phone] [facility] No Information Management Case. [address], [place], [place], [address], [place]. tel:[phone] HOSPITAL DISCHARGE DAY MANAGEMENT; 30 MINUTES OR LESS [facility], [address], [place], [place], [address] , [place] tel: [phone] [facility] No Information 4 Tepe Chastity. [address], [place], [place], [address], [place]. tel:[phone] OFFICE/OUTPATI ENT VISIT, EST [facility], [address], [place], [place], [address] , [place] tel: [phone] [facility] routine (chief complaint) Supervision of other normal 4 Arlene Pope. [address], [place], [place], [address], [place]. tel:[phone] Referring Provider: Niko Yepez, [address], [place], [address]. tel:[phone] OFFICE/OUTPATI ENT VISIT, EST [facility], [address], [place], [place], [address] , [place] tel: [phone] [facility] routine (chief complaint) Supervision of other normal 9 4 Arlene Pope. [address], [place], [place], [address], [place]. tel:[phone] Referring Provider: Niko Yepez, [address], [place], [address]. tel:[phone] OFFICE/OUTPATI ENT VISIT, EST [facility], [address], [place], [place], [address] , [place] tel: [phone] [facility] routine (chief complaint) Supervision of other normal 3 4 Arlene Pope. [address], [place], [place], [address], [place]. tel:[phone] Referring Provider: Niko Yepez, [address], [place], [address]. tel:[phone] OFFICE/OUTPATI ENT VISIT, EST [facility], [address], [place], [place], [address] , [place] tel: [phone] [facility] Follow Up of OB (chief complaint) Supervision of other normal 4 Arlene Pope. [address], [place], [place], [address], [place]. tel:[phone] Referring Provider: Niko Yepez, [address], [place], [address]. tel:[phone] OFFICE/OUTPATI ENT VISIT, EST [facility], [address], [place], [place], [address] , [place] tel: [phone] [facility] routine centering group (chief complaint) Supervision of other normal 4 Arlene Pope. [address], [place], [place], [address], [place]. tel:[phone] Referring Provider: Niko Yepez, [address], [place], [address]. tel:[phone] OFFICE/OUTPATI ENT VISIT, EST [facility], [address], [place], [place], [address] , [place] tel: [phone] [facility] OB centering (chief complaint) Supervision of other normal 4 Arlene Pope. [address], [place], [place], [address], [place]. tel:[phone] Referring Provider: Niko Yepez, [address], [place], [address]. tel:[phone] OFFICE/OUTPATI ENT VISIT, EST [facility], [address], [place], [place], [address] , [place] tel: [phone] [facility] centereing (chief complaint) PREG STATE, INCIDENTAL 4 Arlene Pope. [address], [place], [place], [address], [place]. tel:[phone] Referring Provider: Niko Yepez, [address], [place], [address] [place] [address]. tel: [phone] [facility], [address], [place], [address] [place] [address] , tel: [phone] [facility] No Information March-1 2-201 4 Arlene Pope. [address], [place], [address] [place] [address], [place]. tel: [phone] OFFICE/OUTPATI ENT VISIT, EST [facility], [address], [place], [address] [place] [address] , tel: [phone] [facility] No Information March-0 8-201 4 Arlene Pope. [address], [place], [address] [place] [address], [place]. tel:[phone] Referring Provider: Niko Yepez, [address], [place], [address] [place] [address]. tel:[phone] OFFICE/OUTPATI ENT VISIT, EST [facility], [address], [place], [address] [place] [address] , tel: [phone] [facility] No Information Feb-2 4-201 4 Arlene Pope. [address], [place], [address] [place] [address], [place]. tel:[phone] Referring Provider: Niko Yepez, [address], [place], [address] [place] [address]. tel: [phone] OFFICE/OUTPATI ENT VISIT, EST [facility], [address], [place], [address] [place] [address] , tel: [phone] [facility] No Information Feb-1 0-201 4 Arlene Pope. [address], [place], [address] [place] [address], . tel:[phone] Referring Provider: Niko Yepez, [address], [place], [address] [place] [address]. tel:[phone] [facility], [address], [place], [place], [address] , tel: [phone] [facility] No Information Feb-0 4 No Information [facility], [address], [place], [address] , tel: [phone] [facility] No Information Jan- 4 Arlene Pope. [address], [place], [address] [place] [address], . tel:[phone] Consulting Provider: Hayley Astorga, [address], [place], [address]. tel:[phone] [facility], [address], [place], [address] [place] [address] , tel: [phone] [facility] No Information 4 Management Case. [address], [place], [address] [place] [address], . tel:[phone] Consulting Provider: Hayley Astorga, [address], [place], [address]. tel:[phone] OFFICE/OUTPATI ENT VISIT, EST [facility], [address], [place], [address] [place] [address] , tel: [phone] [facility] No Information 4 Arlene Pope. [address], [place], [place], [address], . tel:[phone] Referring Provider: Niko Yepez, [address], [place], [address]. tel:[phone] OFFICE/OUTPATI ENT VISIT, EST [facility], [address], [place], [address] [place] [address] , tel: [phone] [facility] Screening examination for pulmonary tuberculosis 4 Arlene Pope. [address], [place], [place], [address], . tel:[phone] Referring Provider: Niko Yepez, [address], [place], [address]. tel:[phone] [facility], [address], [place], [place], [address] , tel: [phone] [facility] No Information 4 No Information OFFICE OUTPT EST 25 MIN [facility], [address], [place], [address] [place] [address] , tel: [phone] [facility] Supervision of other normal 4 Arlene Pope. [address], [place], [address], [place]. tel:[phone] Referring Provider: Niko Yepez, [address], [place], [address]. tel:[phone] [facility], [address], [place], [place], [address] , tel: [phone] [facility] Supervision of other normal 3 Arlene Pope. [address], [place], [address], [place]. tel:[phone] [facility], [address], [place], [place], [address] , tel: [phone] [facility] Dental examination 3 No Information [facility], [address], [place], [address] , [place] tel: [phone] [facility] No Information 3 Arlene Pope. [address], [place], [address], [place]. tel:[phone] OFFICE/OUTPATI ENT VISIT, EST [facility], [address], [place], [address] , tel: [phone] [facility] Generic (chief complaint) Routine follow-up 3 Yuliet Flores. [address], [place], [place], [address], [place]. tel:[phone] OFFICE/OUTPATI ENT VISIT, EST [facility], [address], [place], [address] , [place] tel: [phone] [facility] Generic (chief complaint) Routine follow-up 3 Yuliet Flores. [address], [place], [place], [address], [place]. tel:[phone] [facility], [address], [place], [place], [address] , [place] tel: [phone] [facility] Home Visit (chief complaint) Routine follow-up 3 Management Case. [address], [place], [place], [address], [place]. tel:[phone] Consulting Provider: Hayley Astorga, [address], [place], [address]. tel:[phone] HOSPITAL DISCHARGE DAY MANAGEMENT; 30 MINUTES OR LESS [facility], [address], [place], [place], [address] , [place] tel: [phone] [facility] No Information 3 Sonia Haywood. [address], [place], [place], [address], [place]. [phone] [facility] PA D 15 MIN [facility], [address], [place], [place], [address] , [place] tel: [phone] [facility] No Information 3 No Information [facility], [address], [place], [place], [address] , [place] tel: [phone] [facility] No Information 3 No Information OFFICE/OUTPATI ENT VISIT, EST [facility], [address], [place], [place], [address] , [place] tel: [phone] [facility] No Information 3 Schiefelbei n Sandra. [address], [place], [place], [address], [place]. tel:[phone] OFFICE/OUTPATI ENT VISIT, EST [facility], [address], [place], [place], [address] , [place] tel: [phone] [facility] No Information 2 Schiefelbei n Sandra. [address], [place], [place], [address], [place]. tel:[phone] OFFICE/OUTPATI ENT VISIT, EST [facility], [address], [place], [place], [address] , [place] tel: [phone] [facility] No Information 2 Schiefelbei n Sandra. [address], [place], [place], [address], [place]. tel:[phone] [facility], [address], [place], [place], [address] , [place] tel:[phone] [facility] Elevated liver enzymes 2 Schiefelbei n Sandra. [address], [place], [place], [address], [place]. tel:[phone] OFFICE/OUTPATI ENT VISIT, EST [facility], [address], [place], [place], [address] , [place] tel: [phone] [facility] No Information 2 Schiefelbei n Sandra. [address], [place], [place], [address], [place]. tel:[phone] OFFICE/OUTPATI ENT VISIT, EST [facility], [address], [place], [place], [address] , [place] tel: [phone] [facility] No Information 2 Schiefelbei n Sandra. [address], [place], [address], [place]. tel:[phone] OFFICE/OUTPATI ENT VISIT, EST [facility], [address], [place], [place], [address] , [place] tel: [phone] [facility] No Information 0 5-201 2 Schiefelbei n Sandra. [address], [place], [place], [address], [place]. tel:[phone] OFFICE/OUTPATI ENT VISIT, EST [facility], [address], [place], [place], [address] , [place] tel: [phone] [facility] No Information 0 8 2 Schiefelbei n Sandra. [address], [place], [place], [address], [place]. tel:[phone] [facility], [address], [place], [place], [address] , [place] tel: [phone] [facility] No Information 0 8 2 Schiefelbei n Sandra. [address], [place], [place], [address], [place]. tel:[phone] OFFICE/OUTPATI ENT VISIT, EST [facility], [address], [place], [place], [address] , [place] tel:[phone] [facility] No Information 2 4 2 Schiefelbei n Sandra. [address], [place], [place], [address], [place]. tel:[phone] OFFICE/OUTPATI ENT VISIT, EST [facility], [address], [place], [place], [address] , [place] tel: [phone] [facility] Routine infant or child health check Sep- 0-201 2 Schiefelbei n Sandra. [address], [place], [place], [address], [place]. tel:[phone] OFFICE/OUTPATI ENT VISIT, EST [facility], [address], [place], [place], [address] , [place] tel: [phone] [facility] No Information Aug-1 3-201 2 Schiefelbei n Sandra. [address], [place], [address], [place]. tel:[phone] OFFICE/OUTPATI ENT VISIT, EST [facility], [address], [place], [place], [address] , [place] tel: [phone] [facility] No Information 2 Yuliet Flores. [address], [place], [place], [address], [place]. tel:[phone] OFFICE/OUTPATI ENT VISIT, EST [facility], [address], [place], [place], [address] , [place] tel: [phone] [facility] Supervision of other normal 2 Yuliet Flores. [address], [place], [place], [address], [place]. tel:[phone] [facility], [address], [place], [place], [address] , [place] tel: [phone] [facility] PN INTAKE (chief complaint) Supervision of other normal pregnancySup ervision of other normal 2 Management Case. [address], [place], [place], [address], [place]. tel:[phone] [facility], [address], [place], [place], [address] , [place] tel: [phone] [facility] No Information 2 Arlene Pope. [address], [place], [place], [address], [place]. tel:[phone] [facility], [address], [place], [place], [address] , [place] tel: [phone] [facility] examination or test, unconfirmed 2 Josi Murphy. [address], [place], [place], [address], [place]. tel:[phone] OFFICE/OUTPATI ENT VISIT, EST [facility], [address], [place], [address] , [place] tel: [phone] [facility] implanon removal (chief complaint) Surveillance of other contraceptiv e methodSurvei llance of implantable subdermal contraceptiv eNeed for prophylactic vaccination and inoculation, other viral diseases 2 No Information [facility], [address], [place], [place], [address] , [place] tel: [phone] [facility] No Information 1 No Information [facility] e, [address], [place], [place], [address] , [place] tel: [phone] [facility] implanon insertion (chief complaint) Insertion of implantable subdermal contraceptiv e 0 0 No Information OFFICE/OUTPATI ENT VISIT, EST [facility], [address], [place], [place], [address] , [place] tel: [phone] [facility] depo provera injection (chief complaint) Surveillance of other contraceptiv e method 0 No Information OFFICE/OUTPATI ENT VISIT, EST [facility], [address], [place], [place], [address] , [place] tel: [phone] [facility] IUD check (chief complaint) Surveillance of intrauterine contraceptiv e device 0 Yuliet Flores. [address], [place], [place], [address], [place]. tel: [phone] OFFICE/OUTPATI ENT VISIT, EST [facility], [address], [place], [place], [address] , [place] tel: [phone] [facility] lab results (chief complaint) Other specified chlamydial diseases 3200 9 Yuliet Flores. [address], [place], [place], [address], [place]. tel:[phone] OFFICE OUTPT EST 25 MIN [facility], [address], [place], [place], [address] , [place] tel: [phone] [facility] iud placement (chief complaint) Insertion of intrauterine contraceptiv e device 9 Yuliet Flores. [address], [place], [place], [address], [place]. tel:[phone] OFFICE OUTPT EST 10 MIN [facility], [address], [place], [place], [address] , [place] tel: [phone] [facility] needs depo (chief complaint) No Information 9 No Information [facility], [address], [place], [place], [address] , [place] tel: [phone] Historic Immunization Location No Information 9 No Information OFFICE OUTPT EST 10 MIN [facility], [address], [place], [place], [address] , [place] tel: [phone] [facility] Other venereal diseases due to chlamydia trachomatis, lower genitourinar y sitesSurveil beverly of other contraceptiv e method 9 No Information OFFICE OUTPT EST 10 MIN [facility], [address], [place], [place], [address] , [place] tel: [phone] [facility] CONTRACEPT SURVEILL NEC 9 No Information OFFICE OUTPT EST 10 MIN [facility], [address], [place], [place], [address] , [place] tel: [phone] [facility] VACCN/INOC VIRAL DIS NECOTH VD CHLM TRCH LOWR 9 No Information OFFICE/OUTPATI ENT VISIT, EST [facility], [address], [place], [place], [address] , [place] tel: [phone] [facility] OTH SPCF CHLAMYDIAL INFC 9 No Information 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 [address], [place], [place], [address]. tel:[phone] OFFICE CONSULT, 15 MIN, 3 HANDLEY COMPS: PROB FOCUS HX; PROB FOCUS EXAM; STRTFWD [facility], [address], [place], [place], [address] , [place] tel: [phone] [facility] COUNSELING NOS 0- 8 No Information OFFICE CONSULT, 15 MIN, 3 HANDLEY COMPS: PROB FOCUS HX; PROB FOCUS EXAM; STRTFWD [facility], [address], [place], [place], [address] , [place] tel: [phone] [facility] COUNSELING NOS -200 8 No Information OFFICE OUTPT EST 10 MIN [facility], [address], [place], [place], [address] , [place] tel: [phone] [facility] SUPERVIS NORMAL 1ST PREG Nov- 5 8 No Information OFFICE OUTPT EST 10 MIN [facility], [address], [place], [place], [address] , [place] tel: [phone] [facility] SUPERVIS NORMAL 1ST PREG 8 No Information OFFICE CONSULT, 15 MIN, 3 HANDLEY COMPS: PROB FOCUS HX; PROB FOCUS EXAM; STRTFWD [facility], [address], [place], [place], [address] , [place] tel: [phone] [facility] COUNSELING NOS 8 No Information OFFICE OUTPT EST 10 MIN [facility], [address], [place], [place], [address] , [place] tel: [phone] [facility] SUPERVIS NORMAL 1ST PREG 8 No Information [facility], [address], [place], [place], [address] , [place] tel: [phone] [facility] PREG STATE, INCIDENTAL 0 8 No Information OFFICE OUTPT EST 10 MIN [facility], [address], [place], [place], [address] , [place] tel: [phone] [facility] SUPERVIS NORMAL 1ST PREG Aug-0 9200 8 No Information OFFICE OUTPT EST 10 MIN [facility], [address], [place], [place], [address] , [place] tel: [phone] [facility] SUPERVIS NORMAL 1ST PREG Sep-2 5-200 8 No Information OFFICE CONSULT, 15 MIN, 3 HANDLEY COMPS: PROB FOCUS HX; PROB FOCUS EXAM; STRTFWD [facility], [address], [place], [place], [address] , [place] tel: [phone] [facility] COUNSELING NOS Jul-0 2 8 No Information OFFICE OUTPT EST 10 MIN [facility], [address], [place], [place], [address] , [place] tel: [phone] [facility] SUPERVIS NORMAL 1ST PREG Jun- 8 No Information [facility], [address], [place], [place], [address] , [place] tel: [phone] [facility] PREG STATE, INCIDENTAL Jun- 8 No Information OFFICE OUTPT EST 10 MIN [facility], [address], [place], [place], [address] , [place] tel: [phone] [facility] SUPERVIS NORMAL 1ST PREG Jun-0 8 No Information OFFICE CONSULT, 15 MIN, 3 HANDLEY COMPS: PROB FOCUS HX; PROB FOCUS EXAM; STRTFWD [facility], [address], [place], [place], [address] , [place] tel: [phone] [facility] COUNSELING NOS 8 No Information [facility], [address], [place], [place], [address] , [place] tel: [phone] [facility] PREG STATE, INCIDENTAL 8 Rizwan Hardy. [address], [place], [place], [address]. tel:[phone] OFFICE CONSULT, 15 MIN, 3 HANDLEY COMPS: PROB FOCUS HX; PROB FOCUS EXAM; STRTFWD [facility], [address], [place], [place], [address] , [place] tel: [phone] [facility] COUNSELING NOS - 8 No Information OFFICE OUTPT EST 10 MIN [facility], [address], [place], [place], [address] , [place] tel: [phone] [facility] SUPERVIS NORMAL 1ST PREG 7 8 No Information [facility], [address], [place], [place], [address] , [place] tel: [phone] [facility] PREG STATE, INCIDENTAL 8 No Information OFFICE OUTPT EST 10 MIN [facility], [address], [place], [place], [address] , [place] tel: [phone] [facility] SUPERVIS NORMAL 1ST PREG 8 No Information OFFICE CONSULT, 15 MIN, 3 HANDLEY COMPS: PROB FOCUS HX; PROB FOCUS EXAM; STRTFWD [facility], [address], [place], [place], [address] , [place] tel: [phone] [facility] COUNSELING NOS 8 No Information OFFICE OUTPT EST 25 MIN [facility], [address], [place], [address] , [place] tel: [phone] [facility] SUPERVIS NORMAL 1ST PREG 8 No Information OFFICE CONSULT, 15 MIN, 3 HANDLEY COMPS: PROB FOCUS HX; PROB FOCUS EXAM; STRTFWD [facility], [address], [place], [place], [address] , [place] tel: [phone] [facility] COUNSELING NOS 8 No Information [facility], [address], [place], [place], [address] , [place] tel: [phone] [facility] PREG STATE, INCIDENTAL 8 Rizwan Hardy. [address], [place], [place], [address]. [phone] [facility], [address], [place], [place], [address] , [place] tel:[phone] [facility] PREG STATE, INCIDENTAL Apr-3 0-200 8 Rizwan Hardy. [address], [place], [place], [address]. tel:[phone] [facility], [address], [place], [place], [address] , [place] tel: [phone] [facility] PREG STATE, INCIDENTAL Apr-2 9-200 8 Rizwan Hardy. [address], [place], [place], [address]. tel:[phone] OFFICE OUTPT EST 10 MIN [facility], [address], [place], [place], [address] , [place] tel: [phone] [facility] SUPERVIS NORMAL 1ST PREG Apr- 6200 8 No Information OFFICE CONSULT, 15 MIN, 3 HANDLEY COMPS: PROB FOCUS HX; PROB FOCUS EXAM; STRTFWD [facility], [address], [place], [place], [address] , [place] tel: [phone] [facility] COUNSELING NOS Apr- 6200 8 No Information [facility], [address], [place], [place], [address] , [place] tel: [phone] [facility] PREG STATE, INCIDENTAL Apr-1 6-200 8 Rizwan Hardy. [address], [place], [place], [address]. tel:[phone] OFFICE OUTPT NEW 10 MIN [facility], [address], [place], [place], [address] , [place] tel: [phone] [facility] ABSENCE OF MENSTRUATION Apr- 4-200 8 Ericiefelbekenya Flores. [address], [place], [place], [address], [place]. [phone] Family History Family Member Type Diagnosis Age At Onset No Information Immunizations Vaccine Date Status Comments Adacel/Boostrix (Tdap) administered [facility] e: New Immunization Record 4 years and [...] Record Payers Payer name Insurance type Covered constitution party ID Authoriza tion(s) [facility] [id number] Medicaid - Medical [id number] Social History Type Description Quantity Date Captured [...] Goal Urinalysis. Due on 13 due Goal AST. Due on due Goal BMP fasting. Due on due Goal H&P. Due on due Goal Influenza Vaccine. Due on due Goal HPV (2nd). Due on 2 due Goal HPV (1st). Due on 9 due Referral Referred To: [facility] Ultrasounds [address], [place], [phone] Ordered: Referrals: Radiology. [facility] Ultrasounds. Diagnostic testing Appointment date/timeframe: 11/06/2018 ordered Referral Referred To: Rosmery [facility]aver [address] [place], [place], [address] Ordered: Referral: [facility]. Behavioral Health. ordered Referral Referred To: [facility] Ultrasounds [address], [place], [phone] Ordered: Referral: [facility] Ultrasounds. Radiology. ordered Referral [facility]erred To: [facility] Ordered: Referral: [facility] Obstetrics/Pad Making Machine Operator. ordered Referral Referred To: [facility] Ul[facility]ounds [address], [place], [phone] Ordered: Referral: [facility] Ultrasounds. Obstetrics/Pad Making Machine Operator. Evaluate and treat. ordered Future Order: Lab Order Bile Aci ds, Fractionated and Total, ([id number]), Appointment on: , Sent on: Sent Future Order: Lab Order COMPREHE NSIVE METABOLIC PANEL W/EGFR ([id number]), Appointment on: , Sent on: Sent Future Order: Lab Order CBC (H/H , RBC, INDICES, WBC, PLT) ([id number]), Appointment on: , Sent on: Sent Future [...] provera contraceptionNo headache, depression, significant vaginal bleeding.Exam: comfortable--[id number] history: No other new drug allergies nor problems since last visit. Patient is taking medications as prescribed here without problems except as noted above.Medications are reconciled from any interval medical encounters elsewhere.ASSESSMENTS [details] / PLANS (see also medication and order details)ACTIVE PROBLEMS> Breast-feeding>>> Anemia , resolvedObesity / guidance on physical activity & nutrition given .fertility: Depo-Provera, due [id number] prev: 10y risk = %. lifetime risk [...] visit >PROFILE relationship: ed/occupation: dwelling: stressors: childbirth [id number]: insurance: pharmacy: contact: SALIENT PAST Hxdrug allergy: [...] nutrition given .fertility: Depo-Provera begun , due [id number] prev: 10y risk = %. lifetime risk [...] visit >PROFILE relationship: ed/occupation: dwelling: stressors: childbirth [id number]: insurance: pharmacy: contact: SALIENT PAST Hxdrug allergy: [...]
[2025-04-02 09:24] VITALS: BP 119/67; PULSE 82; RESP 15; TEMP 36.8; O2SAT 100
--- OUTSIDE RECORDS SUMMARY | 2025-04-02 09:32 | XMS_ITS | Continuity of Care Document ---
Author Organization [employer] [facility] Address [address] [place] [address] Phone Care Team Providers Care Ripsaw Matcher Name Role Phone Zoey DMD, Nitin Unavailable [...] and/or drug screening 9 [facility] 15 MIN [facility] 15 MIN DELIVERY ONLY INSERTION, NON-BIODEGRADABLE [...] Voided Encounter HOSPITAL DISCHARGE DAY MANAGEMENT; 30 MD NUTES OR LESS OFFICE/OUTPATIENT VISIT, EST OFFICE/OUTPATIENT [...] [facility], AT-RISK ENHANCED SERVICE PACKAGE (INCLUDES [id number]) OFFICE/OUTPATIENT VISIT, EST SKIN TEST; TUBERCULOSIS, INTRADERMAL [...] NON-PHYSICI AN HOSPITAL DISCHARGE DAY MANAGEMENT; 30 MD NUTES OR LESS [facility] D 15 MIN VAGINAL DELIVERY ONLY (WITH [...] 1 GRAM OFFICE OUTPT EST 10 MIN Injection, medroxyprogesterone acetate ( Depo-Provera), 150 mg OFFICE OUTPT EST 10 MIN CHYLMD TRACH, DNA, AMP PROBE N.GONORRHOEAE, DNA, AMP PROB VFC-HPV TYP 6 11 16 18 QUADRIV 3 DOSE SC HED IM OFFICE OUTPT EST 10 MIN AZITHROMYCIN DIHYDRATE, ORAL, CAPSULES/P OWDER, 1 GRAM OFFICE/OUTPATIENT VISIT, EST CHYLMD TRACH, DNA, AMP PROBE COLLECTION OF VENOUS BLOOD BY VENIPUNCTU RE PERIODIC COMPREHENSIVE PREVENTIVE MED RE E/M; ESTABLISHED PATIENT; 10-19 BLOOD COUNT; HEMATOCRIT (HCT) 8 N.GONORRHOEAE, DNA, AMP PROB CYTP C/V AUTO THIN LYR PREPJ SCR MNL RES CR PHYS Injection, medroxyprogesterone acetate ( Depo-Provera), 150 mg CM- Woman - Month with Face to F herminio Visit OFFICE CONSULT, 15 MIN, 3 KE Y COMPS: PROB FOCUS HX; PROB FOCUS EXAM; STRTFWD OFFICE CONSULT, 15 MIN, 3 KE Y COMPS: PROB FOCUS HX; PROB FOCUS EXAM; [facility] OFFICE OUTPT EST 10 MIN URNLS DIP STICK/TABLET RGNT AUTO W/O TONY CULTURE, BACTERIAL; QUANTITATIVE COLONY COUNT, URINE URNLS DIP STICK/TABLET RGNT AUTO W/O TONY OFFICE OUTPT EST 10 MIN OFFICE CONSULT, 15 MIN, 3 KE Y COMPS: PROB FOCUS HX; PROB FOCUS EXAM; [facility] URNLS DIP STICK/TABLET RGNT AUTO W/O TONY [...] COMPS: PROB FOCUS HX; PROB FOCUS EXAM; [facility] OFFICE OUTPT EST 10 MIN URNLS DIP STICK/TABLET RGNT AUTO W/O TONY CM- Woman - Month with No Face t o Face Visit COLLECTION OF VENOUS BLOOD BY VENIPUNCTU RE BLOOD COUNT; COMPLETE (CBC), AUTOMATED (HGB, HCT, RBC, WBC AND PLATELET COUNT) CULTURE, BACTERIAL; QUANTITATIVE COLONY COUNT, URINE CHYLMD TRACH, DNA, AMP PROBE URNLS DIP STICK/TABLET RGNT AUTO W/O TONY OFFICE OUTPT EST 10 MIN GLUCOSE; POST GLUCOSE DOSE (INCLUDES GLU COSE) N.GONORRHOEAE, DNA, AMP PROB OFFICE CONSULT, 15 MIN, 3 KE Y COMPS: PROB FOCUS HX; PROB FOCUS EXAM; [facility] CM- Woman - Month with Face to F herminio Visit OFFICE CONSULT, 15 MIN, 3 KE Y COMPS: PROB FOCUS HX; PROB FOCUS EXAM; [facility] OFFICE OUTPT EST 10 MIN URNLS DIP STICK/TABLET RGNT AUTO W/O TONY CM- Woman - Month with No Face t o Face Visit OFFICE OUTPT EST 10 MIN URNLS DIP STICK/TABLET RGNT AUTO W/O TONY OFFICE CONSULT, 15 MIN, 3 KE Y COMPS: PROB FOCUS HX; PROB FOCUS EXAM; [facility] URNLS DIP STICK/TABLET RGNT AUTO W/O TONY CHYLMD TRACH, DNA, AMP PROBE N.GONORRHOEAE, DNA, AMP PROB CYTP C/V AUTO THIN LYR PREPJ SCR MNL RES CR PHYS SMEAR, WET MOUNT, SALINE/INK OFFICE OUTPT EST 25 MIN AZITHROMYCIN DIHYDRATE, ORAL, CAPSULES/P OWDER, 1 GRAM OFFICE CONSULT, 15 MIN, 3 KE Y COMPS: PROB FOCUS HX; PROB FOCUS EXAM; [facility] CM- Woman - Month with Face to F herminio Visit CM- Woman - Month with No Face t o Face Visit CM- Woman - Month with No Face t o Face Visit OB PANEL OFFICE OUTPT EST 10 MIN CHYLMD TRACH, DNA, AMP PROBE CULTURE, BACTERIAL; QUANTITATIVE COLONY COUNT, URINE URNLS DIP STICK/TABLET RGNT AUTO W/O TONY LEAD HEPATITIS C ANTIBODY; SKIN TEST; TUBERCULOSIS, INTRADERMAL Feb ANTIBODY; HIV-1 AND HIV-2, SINGLE ASSAY COLLECTION OF VENOUS BLOOD BY VENIPUNCTU RE CALCIFEDIOL (25-OH VITAMIN D-3) 008 HEMOGLOBIN ELECTROPHORESIS N.GONORRHOEAE, DNA, AMP PROB OFFICE CONSULT, 15 [...] Date Provider Providers Copied on Encounter [facility], [address], [place], [place], [address] , tel: [phone] [facility] caries on pit and fissure surface penetrat into pulpEncounte r for dental exam and cleaning w abnormal findings 0 Zoey Taveras. [address], [place], [place], [address]. tel:[phone] OFFICE/OUTPATI ENT VISIT, EST [facility], [address], [place], [place], [address] , tel: [phone] [facility] 6wk pp (chief complaint) Body mass index (BMI) 31.0-31.9, adultEncount er for routine follow-upCer vical high risk HPV DNA test positiveEnco unter for screening for other disorder 0-201 9 No Information OFFICE/OUTPATI ENT VISIT, EST [employer] [facility], [address], [place], [place], [address] , tel: [phone] [facility] 2wk pp (chief complaint) Body mass index (BMI) 30.0-30.9, adultEncount er for routine follow-upEnc ounter for checking, reinsertion or removal of implantable subdermal contraceptiv eAbnormal Pap smear of cervixEncoun ter for screening for other disorder No Information [facility] D 15 MIN [facility], [address], [place], [place], [address] , [place] tel: [phone] [facility] No Information Karina Monte. [address], [place], [place], [address], [place]. tel:[phone] Referring Provider: Mell Collins, [address], [place], [address]. tel:[phone] [facility] D 15 MIN [facility], [address], [place], [place], [address] , [place] tel: [phone] [facility] No Information No Information [facility], [address], [place], [place], [address] , [place] tel: [phone] [facility] Underachieve ment in schoolUneunm cancer center oent, unspecified Management Case. [address], [place], [place], [address], [place]. tel:[phone] [facility], [address], [place], [place], [address] , [place] tel: [phone] [facility] No Information Sonia Haywood. [address], [place], [place], [address], [place]. tel:[phone] OFFICE/OUTPATI ENT VISIT, EST [facility], [address], [place], [place], [address] , [place] tel: [phone] [facility] routine (chief complaint) Supervision of high risk , third frfgyalhz85 weeks gestation of pregnancyEnc ounter for screening for other disorder No Information [facility], [address], [place], [place], [address] , [place] tel: [phone] [facility] No Information 9 Sonia Haywood. [address], [place], [place], [address], [place]. tel:[phone] Referring Provider: Chastity Scott, [address], [place], [address]. tel:[phone] OFFICE/OUTPATI ENT VISIT, EST [facility], [address], [place], [place], [address] , [place] tel: [phone] [facility] routine (chief complaint) Supervision of high risk , third lrhqhfaau31 weeks gestation of pregnancyEnc ounter for screening for other disorderEnco unter for suprvsn of normal , unsp trimester 9 No Information OFFICE/OUTPATI ENT VISIT, EST [facility], [address], [place], [place], [address] , [place] tel: [phone] [facility] routine (chief complaint) Supervision of high risk , third xxocaobvn26 weeks gestation of pregnancyEnc ounter for screening for other disorderEnco unter for suprvsn of normal , unsp trimester 9 No Information OFFICE/OUTPATI ENT VISIT, EST [facility], [address], [place], [place], [address] , [place] tel: [phone] [facility] routine (chief complaint) Supervision of high risk , third hilelvrbn35 weeks gestation of pregnancyEnc ounter for screening for other disorderEnco unter for suprvsn of normal , unsp trimester 9 No Information OFFICE OUTPT EST 25 MIN [facility], [address], [place], [place], [address] , [place] tel: [phone] [facility] routine (chief complaint) Supervision of high risk , third mcjvxwpby24 weeks gestation of pregnancyEnc ounter for immunization Encounter for screening for other disorderEnco unter for suprvsn of normal , unsp trimester 9 No Information OFFICE OUTPT EST 25 MIN [facility], [address], [place], [place], [address] , [place] tel: [phone] [facility] routine (chief complaint) Supervision of high risk , 2nd hzzdwyfew95 weeks gestation of pregnancyEnc ounter for screening for other disorderEnco unter for suprvsn of normal , unsp trimester 9 No Information OFFICE OUTPT EST 25 MIN [facility], [address], [place], [place], [address] , [place] tel: [phone] [facility] routine (chief complaint) Body mass index (BMI) 34.0-34.9, adultSupervi clover of high risk , 2nd xywofsrvn46 weeks gestation of pregnancyEnc ounter for screening for diabetes mellitusEnco unter for screening for other hmqivcju47 weeks gestation of 9 No Information OFFICE OUTPT EST 25 MIN [facility], [address], [place], [place], [address] , [place] tel: [phone] [facility] routine (chief complaint) Supervision of high risk , 2nd qakhnibll29 weeks gestation of pregnancyEnc ounter for suprvsn of normal , first trimester 9 No Information OFFICE OUTPT EST 25 MIN [facility], [address], [place], [place], [address] , [place] tel: [phone] [facility] routine (chief complaint) Twin , dichorionic/ diamniotic, second kryuglhdy38 weeks gestation of pregnancyEnc ounter for screening for other fdamakgx97 weeks gestation of 8 No Information OFFICE OUTPT EST 25 MIN [facility], [address], [place], [place], [address] , [place] tel: [phone] [facility] routine (chief complaint) Supervision of high risk , 2nd cfsblfbev76 weeks gestation of pregnancyEnc ounter for screening for other sntqisas28 weeks gestation of 8 No Information OFFICE OUTPT EST 25 MIN [facility], [address], [place], [place], [address] , [place] tel: [phone] [facility] routine (chief complaint) Supervision of high risk , 1st dydswfclj68 weeks gestation of pregnancyEnc ounter for screening for other disorderLess than 8 weeks gestation of 8 No Information OFFICE OUTPT EST 40 MIN [facility], [address], [place], [place], [address] , [place] tel: [phone] [facility] IOB (chief complaint) Supervision of high risk , 1st trimester8 weeks gestation of pregnancyEnc ounter for immunization Encounter for screening for malignant neoplasm of cervixEncoun ter for screening for other disorderEnco unter for test, result positive 8 No Information [facility], [address], [place], [place], [address] , [place] tel: [phone] [facility] No Information Sonia Haywood. [address], [place], [place], [address], [place]. tel:[phone] Referring Provider: Chastity Scott, [address], [place], [address]. tel:[phone] [facility], [address], [place], [place], [address] , [place] tel: [phone] [facility] routine (chief complaint) Encounter for suprvsn of normal , first trimesterLes s than 8 weeks gestation of 8 Management Case. [address], [place], [place], [address], [place]. tel:[phone] [facility], [address], [place], [place], [address] , [place] tel: [phone] [facility] Encounter for test, result positiveAmen orrhea, unspecified No Information Referring Provider: Registered Nurse, [address], [place], [address]. tel:[phone] OFFICE OUTPT EST 25 MIN [facility], [address], [place], [place], [address] , [place] tel: [phone] [facility] depo shot (chief complaint) Contraceptiv e surveillance , unspecified 5 No Information OFFICE/OUTPATI ENT VISIT, EST [facility], [address], [place], [place], [address] , [place] tel: [phone] [facility] depo shot (chief complaint) Surveillance of intrauterine contraceptiv e deviceObesit y 4 Arlene Pope. [address], [place], [place], [address], [place]. tel:[phone] Referring Provider: Niko Yepez, [address], [place], [address]. tel:[phone] OFFICE/OUTPATI ENT VISIT, EST [facility], [address], [place], [place], [address] , [place] tel: [phone] [facility] check up (chief complaint) ROUT POSTPART FOLLOW-UP 4 Arlene Pope. [address], [place], [place], [address], [place]. tel:[phone] Referring Provider: Niko Yepez, [address], [place], [address]. tel:[phone] [facility], [address], [place], [place], [address] , [place] tel: [phone] [facility] PP home visit (chief complaint) No Information Management Case. [address], [place], [place], [address], [place]. tel:[phone] [facility], [address], [place], [place], [address] , [place] tel: [phone] [facility] No Information Management Case. [address], [place], [place], [address], [place]. tel:[phone] HOSPITAL DISCHARGE DAY MANAGEMENT; 30 MINUTES OR LESS [facility], [address], [place], [place], [address] , [place] tel: [phone] [facility] No Information 4 Tepe Chastity. [address], [place], [place], [address], [place]. tel:[phone] OFFICE/OUTPATI ENT VISIT, EST [facility], [address], [place], [place], [address] , [place] tel: [phone] [facility] routine (chief complaint) Supervision of other normal 4 Arlene Pope. [address], [place], [place], [address], [place]. tel: [phone] Referring Provider: Niko Yepez, [address], [place], [address]. tel:[phone] OFFICE/OUTPATI ENT VISIT, EST [facility], [address], [place], [place], [address] , [place] tel: [phone] [facility] routine (chief complaint) Supervision of other normal 9 4 Arlene Pope. [address], [place], [place], [address], [place]. tel:[phone] Referring Provider: Niko Yepez, [address], [place], [address]. tel:[phone] OFFICE/OUTPATI ENT VISIT, EST [facility], [address], [place], [place], [address] , [place] tel: [phone] [facility] routine (chief complaint) Supervision of other normal 3 4 Arlene Pope. [address], [place], [place], [address], [place]. tel:[phone] Referring Provider: Niko Yepez, [address], [place], [address]. tel:[phone] OFFICE/OUTPATI ENT VISIT, EST [facility], [address], [place], [place], [address] , [place] tel: [phone] [facility] Follow Up of OB (chief complaint) Supervision of other normal 4 Arlene Pope. [address], [place], [place], [address], [place]. tel:[phone] Referring Provider: Niko Yepez, [address], [place], [address]. tel:[phone] OFFICE/OUTPATI ENT VISIT, EST [facility], [address], [place], [place], [address] , [place] tel: [phone] [facility] routine centering group (chief complaint) Supervision of other normal 4 Arlene Pope. [address], [place], [place], [address], [place]. tel:[phone] Referring Provider: Niko Yepez, [address], [place], [address]. tel:[phone] OFFICE/OUTPATI ENT VISIT, EST [facility], [address], [place], [place], [address] , [place] tel: [phone] [facility] OB centering (chief complaint) Supervision of other normal 4 Arlene Pope. [address], [place], [place], [address], [place]. tel:[phone] Referring Provider: Niko Yepez, [address], [place], [address]. tel:[phone] OFFICE/OUTPATI ENT VISIT, EST [facility], [address], [place], [place], [address] , [place] tel: [phone] [facility] centereing (chief complaint) PREG STATE, INCIDENTAL 4 Arlene Pope. [address], [place], [place], [address], [place]. tel:[phone] Referring Provider: Niko Yepez, [address], [place], [address] [place] [address]. tel:[phone] [facility], [address], [place], [address] [place] [address] , tel: [phone] [facility] No Information March-1 2-201 4 Arlene Pope. [address], [place], [address] [place] [address], [place]. tel:[phone] OFFICE/OUTPATI ENT VISIT, EST [facility], [address], [place], [address] [place] [address] , tel: [phone] [facility] No Information March-0 8-201 4 Arlene Pope. [address], [place], [address] [place] [address], [place]. tel:[phone] Referring Provider: Niko Yepez, [address], [place], [address] [place] [address]. tel:[phone] OFFICE/OUTPATI ENT VISIT, EST [facility], [address], [place], [address] [place] [address] , tel: [phone] [facility] No Information Feb-2 4-201 4 Arlene Pope. [address], [place], [address] [place] [address], [place]. tel:[phone] Referring Provider: Niko Yepez, [address], [place], [address] [place] [address]. tel:[phone] OFFICE/OUTPATI ENT VISIT, EST [facility], [address], [place], [address] [place] [address] , tel: [phone] [facility] No Information Feb-1 0-201 4 Arlene Pope. [address], [place], [address] [place] [address], . tel:[phone] Referring Provider: Niko Yepez, [address], [place], [address] [place] [address]. tel:[phone] [facility], [address], [place], [place], [address] , tel: [phone] [facility] No Information Feb-0 4 No Information [facility], [address], [place], [place], [address] , tel: [phone] [facility] No Information Jan- 4 Arlene Pope. [address], [place], [address] [place] [address], . tel:[phone] Consulting Provider: Hayley Astorga, [address], [place], [address]. tel:[phone] [facility], [address], [place], [address] [place] [address] , tel: [phone] [facility] No Information 4 Management Case. [address], [place], [address] [place] [address], . tel:[phone] Consulting Provider: Hayley Astorga, [address], [place], [address]. tel:[phone] OFFICE/OUTPATI ENT VISIT, EST [facility], [address], [place], [address] [place] [address] , tel: [phone] [facility] No Information 4 Arlene Pope. [address], [place], [place], [address], . tel:[phone] Referring Provider: Niko Yepez, [address], [place], [address]. tel:[phone] OFFICE/OUTPATI ENT VISIT, EST [facility], [address], [place], [address] [place] [address] , tel: [phone] [facility] Screening examination for pulmonary tuberculosis 4 Arlene Pope. [address], [place], [place], [address], . tel:[phone] Referring Provider: Niko Yepez, [address], [place], [address]. tel:[phone] [facility], [address], [place], [place], [address] , tel: [phone] [facility] No Information 4 No Information OFFICE OUTPT EST 25 MIN [facility], [address], [place], [address] [place] [address] , tel: [phone] [facility] Supervision of other normal 4 Arlene Pope. [address], [place], [place], [address], [place]. tel:[phone] Referring Provider: Niko Yepez, [address], [place], [address]. tel:[phone] [facility], [address], [place], [place], [address] , tel: [phone] [facility] Supervision of other normal 3 Arlene Pope. [address], [place], [place], [address], [place]. tel:[phone] [facility], [address], [place], [place], [address] , tel: [phone] [facility] Dental examination 3 No Information [facility], [address], [place], [place], [address] , [place] tel: [phone] [facility] No Information 3 Arlene Pope. [address], [place], [place], [address], [place]. tel:[phone] OFFICE/OUTPATI ENT VISIT, EST [facility], [address], [place], [place], [address] , tel: [phone] [facility] Generic (chief complaint) Routine follow-up 3 Yuliet Flores. [address], [place], [place], [address], [place]. tel:[phone] OFFICE/OUTPATI ENT VISIT, EST [facility], [address], [place], [place], [address] , [place] tel: [phone] [facility] Generic (chief complaint) Routine follow-up 3 Yuliet Flores. [address], [place], [place], [address], [place]. tel:[phone] [facility], [address], [place], [place], [address] , [place] tel: [phone] [facility] Home Visit (chief complaint) Routine follow-up 3 Management Case. [address], [place], [place], [address], [place]. tel:[phone] Consulting Provider: Hayley Astorga, [address], [place], [address]. tel:[phone] HOSPITAL DISCHARGE DAY MANAGEMENT; 30 MINUTES OR LESS [facility], [address], [place], [place], [address] , [place] tel: [phone] [facility] No Information 3 Sonia Haywood. [address], [place], [place], [address], [place]. [phone] [facility] MT D 15 MIN [facility], [address], [place], [place], [address] , [place] tel: [phone] [facility] No Information 3 No Information [facility], [address], [place], [place], [address] , [place] tel: [phone] [facility] No Information 3 No Information OFFICE/OUTPATI ENT VISIT, EST [facility], [address], [place], [place], [address] , [place] tel: [phone] [facility] No Information 3 Schiefelbei n Sandra. [address], [place], [place], [address], [place]. tel:[phone] OFFICE/OUTPATI ENT VISIT, EST [facility], [address], [place], [place], [address] , [place] tel: [phone] [facility] No Information 2 Schiefelbei n Sandra. [address], [place], [place], [address], [place]. tel:[phone] OFFICE/OUTPATI ENT VISIT, EST [facility], [address], [place], [place], [address] , [place] tel: [phone] [facility] No Information 2 Schiefelbei n Sandra. [address], [place], [place], [address], [place]. tel:[phone] [facility], [address], [place], [place], [address] , [place] tel:[phone] [facility] Elevated liver enzymes 2 Schiefelbei n Sandra. [address], [place], [place], [address], [place]. tel:[phone] OFFICE/OUTPATI ENT VISIT, EST [facility], [address], [place], [place], [address] , [place] tel: [phone] [facility] No Information 2 Schiefelbei n Sandra. [address], [place], [place], [address], [place]. tel:[phone] OFFICE/OUTPATI ENT VISIT, EST [facility], [address], [place], [place], [address] , [place] tel: [phone] [facility] No Information 2 Schiefelbei n Sandra. [address], [place], [place], [address], [place]. tel:[phone] OFFICE/OUTPATI ENT VISIT, EST [facility], [address], [place], [place], [address] , [place] tel: [phone] [facility] No Information 0 5-201 2 Schiefelbei n Sandra. [address], [place], [address], [place]. tel:[phone] OFFICE/OUTPATI ENT VISIT, EST [facility], [address], [place], [place], [address] , [place] tel: [phone] [facility] No Information 0 8 2 Schiefelbei n Sandra. [address], [place], [place], [address], [place]. tel:[phone] [facility], [address], [place], [place], [address] , [place] tel: [phone] [facility] No Information 0 8 2 Schiefelbei n Sandra. [address], [place], [place], [address], [place]. tel:[phone] OFFICE/OUTPATI ENT VISIT, EST [facility], [address], [place], [place], [address] , [place] tel:[phone] [facility] No Information 2 4 2 Schiefelbei n Sandra. [address], [place], [place], [address], [place]. tel:[phone] OFFICE/OUTPATI ENT VISIT, EST [facility], [address], [place], [place], [address] , [place] tel: [phone] [facility] Routine infant or child health check Sep- 0-201 2 Schiefelbei n Sandra. [address], [place], [place], [address], [place]. tel:[phone] OFFICE/OUTPATI ENT VISIT, EST [facility], [address], [place], [place], [address] , [place] tel: [phone] [facility] No Information Aug-1 3-201 2 Schiefelbei n Sandra. [address], [place], [place], [address], [place]. tel:[phone] OFFICE/OUTPATI ENT VISIT, EST [facility], [address], [place], [place], [address] , [place] tel: [phone] [facility] No Information 2 Yuliet Flores. [address], [place], [place], [address], [place]. tel:[phone] OFFICE/OUTPATI ENT VISIT, EST [facility], [address], [place], [place], [address] , [place] tel: [phone] [facility] Supervision of other normal 2 Yuliet Flores. [address], [place], [place], [address], [place]. tel:[phone] [facility], [address], [place], [place], [address] , [place] tel: [phone] [facility] PN INTAKE (chief complaint) Supervision of other normal pregnancySup ervision of other normal 2 Management Case. [address], [place], [place], [address], [place]. tel:[phone] [facility], [address], [place], [place], [address] , [place] tel: [phone] [facility] No Information 2 Arlene Pope. [address], [place], [place], [address], [place]. tel:[phone] [facility], [address], [place], [place], [address] , [place] tel: [phone] [facility] examination or test, unconfirmed 2 Josi Murphy. [address], [place], [place], [address], [place]. tel:[phone] OFFICE/OUTPATI ENT VISIT, EST [facility], [address], [place], [place], [address] , [place] tel: [phone] [facility] implanon removal (chief complaint) Surveillance of other contraceptiv e methodSurvei llance of implantable subdermal contraceptiv eNeed for prophylactic vaccination and inoculation, other viral diseases 2 No Information [facility], [address], [place], [place], [address] , [place] tel: [phone] [facility] No Information 1 No Information [facility], [address], [place], [place], [address] , [place] tel: [phone] [facility] implanon insertion (chief complaint) Insertion of implantable subdermal contraceptiv e 0 0 No Information OFFICE/OUTPATI ENT VISIT, EST [facility], [address], [place], [place], [address] , [place] tel: [phone] [facility] depo provera injection (chief complaint) Surveillance of other contraceptiv e method 0 No Information OFFICE/OUTPATI ENT VISIT, EST [facility], [address], [place], [place], [address] , [place] tel: [phone] [facility] IUD check (chief complaint) Surveillance of intrauterine contraceptiv e device 0 Yuliet Flores. [address], [place], [place], [address], [place]. tel: [phone] OFFICE/OUTPATI ENT VISIT, EST [facility], [address], [place], [place], [address] , [place] tel: [phone] [facility] lab results (chief complaint) Other specified chlamydial diseases 3200 9 Yuliet Flores. [address], [place], [place], [address], [place]. tel:[phone] OFFICE OUTPT EST 25 MIN [facility], [address], [place], [place], [address] , [place] tel: [phone] [facility] iud placement (chief complaint) Insertion of intrauterine contraceptiv e device 9 Yuliet Flores. [address], [place], [place], [address], [place]. tel:[phone] OFFICE OUTPT EST 10 MIN [facility], [address], [place], [place], [address] , [place] tel: [phone] [facility] needs depo (chief complaint) No Information 9 No Information [facility], [address], [place], [place], [address] , [place] tel: [phone] Historic Immunization Location No Information 9 No Information OFFICE OUTPT EST 10 MIN [facility], [address], [place], [place], [address] , [place] tel: [phone] [facility] Other venereal diseases due to chlamydia trachomatis, lower genitourinar y sitesSurveil beverly of other contraceptiv e method 9 No Information OFFICE OUTPT EST 10 MIN [facility], [address], [place], [place], [address] , [place] tel: [phone] [facility] CONTRACEPT SURVEILL NEC 9 No Information OFFICE OUTPT EST 10 MIN [facility], [address], [place], [place], [address] , [place] tel: [phone] [facility] VACCN/INOC VIRAL DIS NECOTH VD CHLM TRCH LOWR 9 No Information OFFICE/OUTPATI ENT VISIT, EST [facility], [address], [place], [place], [address] , [place] tel: [phone] [facility] OTH SPCF CHLAMYDIAL INFC 9 No Information 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 [address], [place], [place], [address]. tel:[phone] OFFICE CONSULT, 15 MIN, 3 HANDLEY COMPS: PROB FOCUS HX; PROB FOCUS EXAM; STRTFWD [facility], [address], [place], [place], [address] , [place] tel: [phone] [facility] COUNSELING NOS 0- 8 No Information OFFICE CONSULT, 15 MIN, 3 HANDLEY COMPS: PROB FOCUS HX; PROB FOCUS EXAM; STRTFWD [facility], [address], [place], [place], [address] , [place] tel: [phone] [facility] COUNSELING NOS -200 8 No Information OFFICE OUTPT EST 10 MIN [facility], [address], [place], [place], [address] , [place] tel: [phone] [facility] SUPERVIS NORMAL 1ST PREG Nov- 5 8 No Information OFFICE OUTPT EST 10 MIN [facility], [address], [place], [place], [address] , [place] tel: [phone] [facility] SUPERVIS NORMAL 1ST PREG 8 No Information OFFICE CONSULT, 15 MIN, 3 HANDLEY COMPS: PROB FOCUS HX; PROB FOCUS EXAM; STRTFWD [facility], [address], [place], [place], [address] , [place] tel: [phone] [facility] COUNSELING NOS 8 No Information OFFICE OUTPT EST 10 MIN [facility], [address], [place], [place], [address] , [place] tel: [phone] [facility] SUPERVIS NORMAL 1ST PREG 8 No Information [facility], [address], [place], [place], [address] , [place] tel: [phone] [facility] PREG STATE, INCIDENTAL 0 8 No Information OFFICE OUTPT EST 10 MIN [facility], [address], [place], [place], [address] , [place] tel: [phone] [facility] SUPERVIS NORMAL 1ST PREG Aug-0 9200 8 No Information OFFICE OUTPT EST 10 MIN [facility], [address], [place], [place], [address] , [place] tel: [phone] [facility] SUPERVIS NORMAL 1ST PREG Sep-2 5-200 8 No Information OFFICE CONSULT, 15 MIN, 3 HANDLEY COMPS: PROB FOCUS HX; PROB FOCUS EXAM; STRTFWD [facility], [address], [place], [place], [address] , [place] tel: [phone] [facility] COUNSELING NOS Jul-0 2 8 No Information OFFICE OUTPT EST 10 MIN [facility], [address], [place], [place], [address] , [place] tel: [phone] [facility] SUPERVIS NORMAL 1ST PREG Jun- 8 No Information [facility], [address], [place], [place], [address] , [place] tel: [phone] [facility] PREG STATE, INCIDENTAL Jun- 8 No Information OFFICE OUTPT EST 10 MIN [facility], [address], [place], [address] , [place] tel: [phone] [facility] SUPERVIS NORMAL 1ST PREG Jun-0 8 No Information OFFICE CONSULT, 15 MIN, 3 HANDLEY COMPS: PROB FOCUS HX; PROB FOCUS EXAM; STRTFWD [facility], [address], [place], [place], [address] , [place] tel: [phone] [facility] COUNSELING NOS 8 No Information [facility], [address], [place], [place], [address] , [place] tel: [phone] [facility] PREG STATE, INCIDENTAL 8 Rizwan Hardy. [address], [place], [place], [address]. tel:[phone] OFFICE CONSULT, 15 MIN, 3 HANDLEY COMPS: PROB FOCUS HX; PROB FOCUS EXAM; STRTFWD [facility], [address], [place], [place], [address] , [place] tel: [phone] [facility] COUNSELING NOS - 8 No Information OFFICE OUTPT EST 10 MIN [facility], [address], [place], [place], [address] , [place] tel: [phone] [facility] SUPERVIS NORMAL 1ST PREG 7 8 No Information [facility], [address], [place], [address] , [place] tel: [phone] [facility] PREG STATE, INCIDENTAL 8 No Information OFFICE OUTPT EST 10 MIN [facility], [address], [place], [place], [address] , [place] tel: [phone] [facility] SUPERVIS NORMAL 1ST PREG 8 No Information OFFICE CONSULT, 15 MIN, 3 HANDLEY COMPS: PROB FOCUS HX; PROB FOCUS EXAM; STRTFWD [facility], [address], [place], [place], [address] , [place] tel: [phone] [facility] COUNSELING NOS 8 No Information OFFICE OUTPT EST 25 MIN [facility], [address], [place], [address] , [place] tel: [phone] [facility] SUPERVIS NORMAL 1ST PREG 8 No Information OFFICE CONSULT, 15 MIN, 3 HANDLEY COMPS: PROB FOCUS HX; PROB FOCUS EXAM; STRTFWD [facility], [address], [place], [place], [address] , [place] tel: [phone] [facility] COUNSELING NOS 8 No Information [facility], [address], [place], [place], [address] , [place] tel: [phone] [facility] PREG STATE, INCIDENTAL 8 Rizwan Hardy. [address], [place], [place], [address]. [phone] [facility], [address], [place], [place], [address] , [place] tel:[phone] [facility] PREG STATE, INCIDENTAL Apr-3 0-200 8 Rizwan Hardy. [address], [place], [place], [address]. tel:[phone] [facility], [address], [place], [place], [address] , [place] tel: [phone] [facility] PREG STATE, INCIDENTAL Apr-2 9-200 8 Rizwan Hardy. [address], [place], [place], [address]. tel:[phone] OFFICE OUTPT EST 10 MIN [facility], [address], [place], [address] , [place] tel: [phone] [facility] SUPERVIS NORMAL 1ST PREG Apr- 6200 8 No Information OFFICE CONSULT, 15 MIN, 3 HANDLEY COMPS: PROB FOCUS HX; PROB FOCUS EXAM; STRTFWD [facility], [address], [place], [place], [address] , [place] tel: [phone] [facility] COUNSELING NOS Apr- 6200 8 No Information [facility], [address], [place], [place], [address] , [place] tel: [phone] [facility] PREG STATE, INCIDENTAL Apr-1 6-200 8 Rizwan Hardy. [address], [place], [place], [address]. tel:[phone] OFFICE OUTPT NEW 10 MIN [facility], [address], [place], [place], [address] , [place] tel: [phone] [facility] ABSENCE OF MENSTRUATION Apr- 4-200 8 Ericiefelbekenya Flores. [address], [place], [place], [address], [place]. [phone] Family History Family Member Type Diagnosis Age At Onset No Information Immunizations Vaccine Date Status Comments Adacel/Boostrix (Tdap) administered [facility] e: New Immunization Record 4 years and [...] Record Payers Payer name Insurance type Covered democrat ID Authoriza tion(s) [facility] [id number] Medicaid - Medical [id number] Social History Type Description Quantity Date Captured [...] Due on 9 due Referral Referred To: [facility] Ultrasounds [address], [place], [phone] Ordered: Referrals: Radiology. [facility] Ultrasounds. Diagnostic testing Appointment date/timeframe: 11/06/2018 ordered Referral Referred To: Rosmery Beaver [address] [place], [place], [address] Ordered: Referral: Rosmery Beaver. Behavioral Health. ordered Referral Referred To: [facility] Ultrasounds [address], [place], [phone] Ordered: Referral: [facility] Ultrasounds. Radiology. ordered Referral Referred To: [facility] Ordered: Referral: [facility] Obstetrics/[facility]. ordered Referral Referred To: [facility] Ultrasounds [address], [place], [phone] Ordered: Referral: [facility] Ultrasounds. Obstetrics/[facility]. Evaluate and treat. ordered Future Order: Lab Order Bile Aci ds, Fractionated and Total, ([id number]), Appointment on: , Sent on: Sent Future Order: Lab Order COMPREHE NSIVE METABOLIC PANEL W/EGFR ([id number]), Appointment on: , Sent on: Sent Future Order: Lab Order CBC (H/H , RBC, INDICES, WBC, PLT) ([id number]), Appointment on: , Sent on: Sent Future [...] provera contraceptionNo headache, depression, significant vaginal bleeding.Exam: comfortable--[id number] history: No other new drug allergies nor problems since last visit. Patient is taking medications as prescribed here without problems except as noted above.Medications are reconciled from any interval medical encounters elsewhere.ASSESSMENTS [details] / PLANS (see also medication and order details)ACTIVE PROBLEMS> Breast-feeding>>> Anemia , resolvedObesity / guidance on physical activity & nutrition given .fertility: Depo-Provera, due [id number] prev: 10y risk = %. lifetime risk [...] visit >PROFILE relationship: ed/occupation: dwelling: stressors: childbirth [id number]: insurance: pharmacy: contact: SALIENT PAST Hxdrug allergy: [...] nutrition given .fertility: Depo-Provera begun , due [id number] prev: 10y risk = %. lifetime risk [...] visit >PROFILE relationship: ed/occupation: dwelling: stressors: childbirth [id number]: insurance: pharmacy: contact: SALIENT PAST Hxdrug allergy: [...]
[2025-04-02 09:40] LABS: Basophils Percent Auto 0.1 % (0.2-1.2); Eosinophils Percent Auto 0.4 % (0-4.4); Hematocrit 31.2 % (37.0-47.0); Hemoglobin 9.9 g/dL (12.0-15.0); Immature Granulocyte Absolute 0.02 K/mm3 (0.00-0.031); Immature Granulocyte Percent A 0.2 % (0-0.5); Lymphocytes Absolute Auto 1.28 K/mm3 (0.9-3.2); Lymphocytes Percent Auto 13.4 % (18.3-44.2); Mean Corpuscular HGB Conc 31.7 g/dl (32-36); Mean Corpuscular Hemoglobin 25.8 pg (26-34); Mean Corpuscular Volume 81.5 fl (80-100); Mean Platelet Volume 12.1 fl (7.4-10.4); Monocytes Absolute Auto 1.1 K/mm3 (0.1-0.6); Neutrophils Absolute Auto 7.1 K/mm3 (1.3-6.7); Neutrophils Percent Auto 74.9 % (45.5-73.1); Platelet Count Result 176 k/mm3 (150-375); Red Blood Count 3.83 M/mm3 (4.2-5.4); Red Cell Distribution Width 15.3 % (11.5-14.5); White Blood Count 9.5 K/mm3 (4.5-10.0)
[2025-04-02 09:44] LABS: BEDSIDEPREGUCG Negative (Negative)
[2025-04-02] MEDS: ONDANSETRON INJ 4 MG/2 ML VIAL IV PUSH (09:46)
[2025-04-02 09:47] LABS: Add Urine Microscopic? YES; Appearance Urine Cloudy (Clear); Bacteria Urine 2+ /hpf; Bilirubin Urine Negative (Negative); Blood Urine 3+ (Negative); Color Urine Dark Yellow (Yellow); Glucose Urine UA Negative (Negative); Ketones Urine 3+ mg/dL (Negative); Leukocyte Esterase Ur 2+ LEU/UL (Negative); Nitrate Urine Positive (Negative); Non Pathogenic Casts 0-2; Protein Urine 1+ mg/dL (Negative); RBC Urine >100 /hpf (0-2); Specific Grav Ur 1.023 (1.001-1.035); Squamous Epithelial Cell Urine Many /hpf (Few); WBC Urine 51-100 /hpf (0-3); pH Urine 5.5 (5.0-9.0)
[2025-04-02] MEDS: MORPHINE SULFATE (*CRX) 4 MG/ML INJ IV PUSH (09:49)
[2025-04-02 09:52] LABS: Alanine Aminotransferase 31 U/L (6-35); Albumin Level 3.6 g/dL (3.5-5.1); Alkaline Phosphatase 79 U/L (38-126); Anion Gap 8 mmol/L (4-12); Aspartate Amino Transferase 31 U/L (14-36); Bilirubin,Total 0.5 mg/dL (0.2-1.3); Blood Urea Nitrogen 9 mg/dL (7-17); Calcium 8.5 mg/dL (8.4-10.2); Carbon Dioxide 24 mmol/L (22-30); Chloride 105 mmol/L (98-107); Estimated CRCL calculation 119 ml/min; Estimated Glomerular Filt Rate > 60; Glucose 101 mg/dL (65-110); Lipase 44 U/L (23-300); Potassium 3.5 mmol/L (3.4-5.0); Sodium 137 mmol/L (137-145)
--- NOTE | 2025-04-02 10:22 | ED_ITS ---
HPI - Abdominal Pain General Chief Complaint: Abdominal Pain Stated Complaint: abd pain Time Seen by Provider: 04/02/25 09:22 History of Present Illness HPI narrative: Patient is a 30-year-old female who presents ER with increasing left lower quadrant abdominal pain over last 2 days. Has nausea. No diarrhea. No urinary frequency urgency. No known sick contacts. Cannot describe alleviating factors. She has increased pain with increased abdominal pressure and engaging her core. Related Data Allergies Allergy/AdvReac Type Severity Reaction Status Date / Time No Known Allergies Allergy Verified 04/02/25 09:28 Review of Systems 2 Review of Systems: All systems reviewed & are unremarkable except as noted in HPI and below Constitutional: Constitutional: Reports no additional constitutional complaints ENT: Reports system reviewed and no additional complaints, except as documented Cardiovascular: Cardiovascular: Reports no additional cardiovascular complaints Respiratory: Respiratory: Reports no additional respiratory complaints Gastrointestinal: Gastrointestinal: Reports no additional gastrointestinal complaints Genitourinary: Genitourinary: Reports no additional female genitourinary complaints PMFSH Past Medical History Medical History No significant past medical history Surgical History Surgical History History of section Family History Family History Father Diabetes mellitus Mother Hypertension Social History Social History Smoking status: Never smoker Alcohol intake: never Substance use: never Substance use type: does not use Exam 2 Narrative: GENERAL: Well-appearing, well-nourished, and in no acute distress. HEAD: Normocephalic, atraumatic. ENT: Mucous membranes moist. NECK: Supple. CHEST: Clear to auscultation. No respiratory distress. HEART: Regular rate and rhythm. Normal peripheral pulses. ABDOMEN: Soft, tender palpation left lower quadrant guarding, nondistended. EXTREMITIES: Normal range of motion. No edema. SKIN: Warm, dry, no rash. NEURO: Alert and oriented x3. PSYCH: Normal mood and affect. Course Course Emergency Course: Patient resting comfortably. Informed of results. Appropriate for discharge home. Vital Signs Vital signs: Vital Signs Temperature 98.2 F 04/02/25 09:24 Pulse Rate 82 05/31/25 09:24 Respiratory Rate 15 04/02/25 09:24 Blood Pressure 119/67 04/02/25 09:24 Pulse Oximetry 100 04/02/25 09:24 Oxygen Delivery Room Air 04/02/25 09:24 Temperature 98.2 F 04/02/25 09:24 Pulse Rate 67 04/02/25 11:10 Respiratory Rate 16 04/02/25 11:10 Blood Pressure 108/67 04/02/25 11:10 Pulse Oximetry 100 04/02/25 11:10 Oxygen Delivery Room Air 04/02/25 09:24 MDM - Abdominal Pain Lab Data 04/02/25 09:33 04/02/25 09:33 Labs: Lab Results 04/02/25 04/02/25 04/02/25 Range/Units 09:33 09:39 09:43 WBC 9.5 (4.5-10.0) K/mm3 RBC 3.83 L (4.2-5.4) M/mm3 Hgb 9.9 L (12.0-15.0) g/dL Hct 31.2 L (37.0-47.0) % MCV 81.5 (80-100) fl MCH 25.8 L (26-34) pg MCHC 31.7 L (32-36) g/dl RDW 15.3 H (11.5-14.5) % Plt Count 176 (150-375) k/mm3 MPV 12.1 H (7.4-10.4) fl Immature Gran % (Auto) 0.2 (0-0.5) % Neut % (Auto) 74.9 H (45.5-73.1) % Lymph % (Auto) 13.4 L (18.3-44.2) % Gillespie % (Auto) 11.0 H (2.6-8.5) % Eos % (Auto) 0.4 (0-4.4) % Baso % (Auto) 0.1 L (0.2-1.2) % Lymph # (Auto) 1.28 (0.9-3.2) K/mm3 Gillespie # (Auto) 1.1 H (0.1-0.6) K/mm3 Eos # (Auto) 0.0 (0-0.3) K/mm3 Baso # (Auto) 0.0 (0.0-0.1) K/mm3 Abs Immat Gran (auto) 0.02 (0.00-0.031) K/mm3 Absolute Neuts (auto) 7.1 H (1.3-6.7) K/mm3 Absolute Nucleated RBC 0.000 (0.0-0.012) K/mm3 Nucleated RBC % 0.0 (0.0-0.2) % Sodium 137 (137-145) mmol/L Potassium 3.5 (3.4-5.0) mmol/L Chloride 105 (98-107) mmol/L Carbon Dioxide 24 (22-30) mmol/L Anion Gap 8 (4-12) mmol/L BUN 9 (7-17) mg/dL Creatinine 0.57 L (0.7-1.0) mg/dL Estim Creat Clear Calc 119 ml/min Estimated GFR > 60 (59 - ) Glucose 101 (65-110) mg/dL Calcium 8.5 (8.4-10.2) mg/dL Total Bilirubin 0.5 (0.2-1.3) mg/dL AST 31 (14-36) U/L ALT 31 (6-35) U/L Alkaline Phosphatase 79 (38-126) U/L Total Protein 7.0 (6.3-8.2) g/dL Albumin 3.6 (3.5-5.1) g/dL Lipase 44 (23-300) U/L Urine Color Dark yellow (Yellow) Urine Appearance Cloudy H (Clear) Urine pH 5.5 (5.0-9.0) Ur Specific [place] 1.023 (1.001-1.035) Urine Protein 1+ H (Negative) mg/dL Urine Glucose (UA) Negative (Negative) mg/dL Urine Ketones 3+ H (Negative) mg/dL Ur Blood (Man) 3+ H (Negative) Urine Nitrate Positive H (Negative) Urine Bilirubin Negative (Negative) Urine Urobilinogen 1.0 (<2.0) mg/dL Leukocyte Esterase Rfl 2+ H (Negative) ARIELLA/UL Urine RBC >100 H (0-2) /hpf Urine WBC 51-100 H (0-3) /hpf Ur Squamous Epith Cells Many H (Few) /hpf Urine Bacteria 2+ H /hpf Urine Casts 0-2 POC Urine HCG, Qual Negative (Negative) Imaging Data Radiologist's impression: ITS Impressions Abdomen/Pelvis CT 04/02/25 10:33 IMPRESSION: 1. Patchy areas of decreased perfusion of the kidneys, most prominent in the lower pole of the left kidney, suspicious for pyelonephritis. Discharge Plan Discharge Clinical Impression: Pyelonephritis Patient Disposition: Home Condition: Stable Instructions: Kidney Infection (ED) Additional Instructions: You should return to the emergency department if you develop severe nausea and vomiting and are unable to keep liquids down, if you develop severe back/flank or stomach pain, or if your symptoms are not clearly improving at home. Patient Language: Serbian Prescriptions: New cefpodoxime 200 mg tablet 200 mg PO BID Qty: 20 0RF Rx Instructions: must administer with a meal/food hydrocodone-acetaminophen 5-325 mg tablet 1 tablet PO Q6H PRN (Reason: pain) Qty: 12 0RF No Action bacitracin 500 unit/gram ointment 1 applic topical Q8H Qty: 14 0RF ciprofloxacin-dexamethasone 0.3-0.1 % drops,suspension 4 drp EACH EAR Q12H 7 Days Qty: 7.5 0RF cefdinir 300 mg capsule 300 mg PO Q12H Qty: 14 0RF benzonatate 200 mg capsule 200 mg PO BID PRN (Reason: cough) Qty: 6 0RF Follow-up/Referrals: Linda,BHARAT Harris [Primary Care Provider] - 1 Week
[2025-04-02 11:10] VITALS: BP 108/67; PULSE 67; RESP 16; O2SAT 100
[2025-04-02 12:17] VITALS: BP 103/63; PULSE 83; RESP 15; O2SAT 100
== END 2025-04-02 12:26 | disposition home or self-care (01) ==
PROVIDERS: Emergency Provider Emergency Medicine; PCP Physician Assistant
DX: N12 Tubulo-interstitial nephritis, not specified as acute or chronic (principal)
CPT/HCPCS: 36415; 74177; 80053; 81001; 81025; 83690; 85025; 96374; 96375; 99284; J2270; J2405; Q9967